=== PATIENT | female | born 1985 | race American Indian/Alaskan Native ===

== ENCOUNTER 2018-09-08 13:52 | Emergency (ER) | payer SELFPAY ==
[2018-09-08 14:25] VITALS: BP 222/106
--- NOTE | 2018-09-08 14:26 | Emergency Department Report ---
ED Recheck HPI - General Chief Complaint: Laceration/Recheck/Suture Stated Complaint: STITCHES REMOVED Time Seen by Provider: 09/08/18 14:24 Source: patient Mode of arrival: Ambulatory Limitations: No Limitations - History of Present Illness Initial Comments: 32 yo female here for suture removal Her BP is inc. She has ESRD and her BP is always high. She forgot to take her bp meds last PM but took this AM. No cp, no sob, no ortiz Here for only the suture removal. Complaint: wound re-check - Related Data Allergies Allergy/AdvReac Type Severity Reaction Status Date / Time No Known Allergies Allergy Unverified 09/08/18 14:04 ED Review of Systems ROS: Stated complaint: STITCHES REMOVED Other details as noted in HPI Comment: All other systems reviewed and negative ED Past Medical Hx - Past Medical History Hx Hypertension: Yes Hx Diabetes: Yes Hx Renal Disease: Yes (HD T Th Sat) - Surgical History Additional Surgical History: fistula L arm - Family History Family history: no significant - Social History Smoking Status: Current Every Day Smoker Substance Use Type: Marijuana ED Physical Exam - General Limitations: No Limitations General appearance: alert - Head Head exam: Present: normocephalic - Eye Eye exam: Present: normal appearance, PERRL - ENT ENT exam: Present: normal exam, mucous membranes moist - Neck Neck exam: Present: normal inspection - Cardiovascular Cardiovascular Exam: Present: regular rate - GI/Abdominal GI/Abdominal exam: Present: soft - Rectal Rectal exam: Present: deferred - Extremities Exam Extremities exam: Present: normal inspection - Back Exam Back exam: Present: normal inspection - Neurological Exam Neurological exam: Present: alert, oriented X3, CN II-XII intact, normal gait, reflexes normal - Psychiatric Psychiatric exam: Present: normal affect, normal mood - Skin Skin exam: Present: warm, dry, normal color ED Course Vital Signs 09/08/18 09/08/18 14:22 14:27 Temperature 98.5 F Pulse Rate 77 77 Respiratory 16 Rate Blood Pressure 222/106 Blood Pressure 222/106 [Right] O2 Sat by Pulse 100 Oximetry ED Recheck MDM - Core Measures Measure Exclusions: not indicated - Medical Decision Making medicated with clonidine for BP educated on her bp meds and compliance she had hd yesterday and gets it tomorrow. no cp no sob no headache neuro intact sutures removed without difficulty dc home with dc plan of care. Critical care attestation.: If time is entered above; I have spent that time in minutes in the direct care of this critically ill patient, excluding procedure time. ED Disposition Clinical Impression: Visit for suture removal, Hypertension, ESRD (end stage renal disease) Disposition: DC-01 TO HOME OR SELFCARE Is pt being admited?: No Does the pt Need Aspirin: No Condition: Stable Instructions: Suture Care (ED) Referrals: SUSI MOSLEY MD [Primary Care Provider] - 3-5 Days Time of Disposition: 14:37
[2018-09-08] MEDS ORDERED: CATAPRES PO ONE (14:27)
[2018-09-08] MEDS ORDERED: CATAPRES ONE (14:29)
== END 2018-09-08 14:50 | disposition home or self-care (01) ==
LOC: ED 13:52
DX: S61.411D Laceration without foreign body of right hand, subsequent encounter (principal); E11.22 Type 2 diabetes mellitus with diabetic chronic kidney disease; I12.0 Hypertensive chronic kidney disease with stage 5 chronic kidney disease or end stage renal disease; N18.6 End stage renal disease; Z99.2 Dependence on renal dialysis; X58.XXXD Exposure to other specified factors, subsequent encounter

== ENCOUNTER 2019-07-25 08:29 | Observation (INO) | payer OTHER ==
--- NOTE | 2019-07-25 13:02 | XRay Report ---
CHEST 1 VIEW INDICATION: hypertension. COMPARISON: None. FINDINGS: Support devices: None. Heart: Enlarged. Pulmonary vasculature: Large central pulmonary vessels. Lungs/Pleura: Lungs are normally expanded and clear. Additional findings: None. IMPRESSION: 1. Cardiomegaly and pulmonary venous hypertension. 2. No pulmonary edema. Signer Name: Zoran Thompson MD Signed: 07/25/2019 12:57 PM Workstation Name: [id number]
[2019-07-25 13:08] LABS: Basophils % (Auto) 0.7 % (0.0-1.8); Eosinophils # (Auto) 0.2 K/mm3 (0.0-0.4); Eosinophils % (Auto) 3.5 % (0.0-4.3); Hematocrit 25.2 % (30.3-42.9); Hemoglobin 8.3 gm/dl (10.1-14.3); Mean Corpuscular HGB Conc 33 % (30-34); Mean Corpuscular Volume 93 fl (79-97); Monocytes # (Auto) 0.4 K/mm3 (0.0-0.8); Monocytes % (Auto) 7.5 % (0.0-7.3); Platelet Count 125 K/mm3 (140-440); Red Blood Count 2.72 M/mm3 (3.65-5.03)
[2019-07-25 13:19] LABS: INR 1.55 (0.87-1.13); Partial Thromboplastin Time 39.4 Sec. (24.2-36.6)
[2019-07-25 13:46] LABS: Albumin 3.6 g/dL (3.9-5); Bilirubin,Direct 0.6 mg/dL (0-0.2)
[2019-07-25] MEDS ORDERED: ACETAMINOPHEN 325 MG TAB PO PRN (14:16)
[2019-07-25] MEDS ORDERED: ONDANSETRON 4 MG/2 ML INJ IV PRN (14:16)
--- NOTE | 2019-07-25 14:16 | Emergency Department Report ---
ED General Adult HPI - General Chief complaint: Medical Clearance Stated complaint: DIALYSIS Time Seen by Provider: 07/25/19 11:57 Source: patient Mode of arrival: Ambulatory Limitations: No Limitations - History of Present Illness Initial comments: This is a 33-year-old female who I am told has moved here from [place]. She made no provision for dialysis. However, she found Dr. Dozier who presented her to the emergency department for evaluation. Apparently she is claiming she just missed 1 dialysis session. However, it does appear that she has a history of previous noncompliance. She states that she was admitted perhaps a month ago or so in [place] for shortness of breath and missed dialysis. Patient is very poorly cooperative to history and exam. She essentially lays on her side and will not easily even turn towards the examining physician. She is providing very little information. She denies shortness of breath. She denies any acute pain. She states that she feels weak. She denies fever or chills. Apparently, she is having polyphagia as she is repeatedly asking for a tray. She does not have altered mental status per se though. Patient is not keenly aware that her abdomen and legs have been swelling. She does state that she has retained fluid before in those areas. -: days(s), unknown (Not specifically known but for days) Associated Symptoms: denies other symptoms - Related Data Home Medications Medication Instructions Recorded Confirmed Last Taken Aspirin [Aspirin BABY CHEW TAB] 81 mg PO QDAY 07/25/19 07/25/19 Unknown Insulin Glargine [Lantus VIAL] 3 units SUB-Q QAM 07/25/19 07/25/19 Unknown Insulin Glargine [Lantus VIAL] 6 units SUB-Q QHS 07/25/19 07/25/19 Unknown Lispro Insulin [HumaLOG] 0 unit SQ ACHS 07/25/19 07/25/19 Unknown NIFEdipine [Nifedipine ER] 30 mg PO BID 07/25/19 07/25/19 Unknown Pantoprazole [Protonix] 40 mg PO QDAY 07/25/19 07/25/19 Unknown Vitamin B Complex 1 each PO DAILY 07/25/19 07/25/19 Unknown carvediloL [Coreg] 25 mg PO BID 07/25/19 07/25/19 Unknown Allergies Allergy/AdvReac Type Severity Reaction Status Date / Time No Known Allergies Allergy Unverified 09/08/18 14:04 ED Review of Systems ROS: Stated complaint: DIALYSIS Other details as noted in HPI Comment: All other systems reviewed and negative (As obtainable, extremely poor historian) ED Past Medical Hx - Past Medical History Previous Medical History?: Yes Hx Hypertension: Yes Hx Diabetes: Yes Hx Renal Disease: Yes (HD T Th Sat) Additional medical history: Denies chronic liver disease - Surgical History Past Surgical History?: Yes Additional Surgical History: fistula L arm, paracentesis - Social History Smoking Status: Current Every Day Smoker Substance Use Type: Alcohol, Marijuana - Medications Home Medications: Home Medications Medication Instructions Recorded Confirmed Last Taken Type Aspirin [Aspirin BABY CHEW TAB] 81 mg PO QDAY 07/25/19 07/25/19 Unknown History Insulin Glargine [Lantus VIAL] 3 units SUB-Q QAM 07/25/19 07/25/19 Unknown Hist ory Insulin Glargine [Lantus VIAL] 6 units SUB-Q QHS 07/25/19 07/25/19 Unknown History Lispro Insulin [HumaLOG] 0 unit SQ ACHS 07/25/19 07/25/19 Unknown History NIFEdipine [Nifedipine ER] 30 mg PO BID 07/25/19 07/25/19 Unknown History Pantoprazole [Protonix] 40 mg PO QDAY 07/25/19 07/25/19 Unknown History Vitamin B Complex 1 each PO DAILY 07/25/19 07/25/19 Unknown History carvediloL [Coreg] 25 mg PO BID 07/25/19 07/25/19 Unknown History ED Physical Exam - General Limitations: Physical Limitation, Other (Poor cooperation) General appearance: lethargic (Mildly) - Head Head exam: Present: atraumatic, normocephalic - Eye Eye exam: Absent: scleral icterus - ENT ENT exam: Present: mucous membranes moist - Neck Neck exam: Absent: tenderness, meningismus - Cardiovascular Cardiovascular Exam: Present: regular rate, normal rhythm. Absent: systolic murmur, diastolic murmur, rubs, gallop - GI/Abdominal GI/Abdominal exam: Present: soft, distended, normal bowel sounds, hernia (Reducible umbilical hernia), other (Consistent with ascites but not tense). Absent: tenderness, guarding, rebound, rigid - Extremities Exam Extremities exam: Present: other (1-2+ leg edema). Absent: calf tenderness ED Course Vital Signs 07/25/19 08:41 Temperature 97.4 F L Pulse Rate 68 Respiratory 18 Rate Blood Pressure 121/66 O2 Sat by Pulse 96 Oximetry - Reevaluation(s) Reevaluation #1: Discussed with case work aide. I will give the patient 4 units of IV insulin now. This should ameliorate her hyperkalemia and bridge her to dialysis. Dr. Dozier did not want any further intervention prior to dialysis. He is placing dialysis orders for next avialable. Patient is admitted by Dr. Potter to the hospitalist service. 07/25/19 14:26 ED Medical Decision Making - Lab Data Result diagrams: 07/25/19 12:41 07/25/19 12:41 Laboratory Results - last 24 hr 07/25/19 07/25/19 07/25/19 12:41 12:41 12:41 WBC 5.0 RBC 2.72 L Hgb 8.3 L Hct 25.2 L MCV 93 MCH 31 MCHC 33 RDW 18.0 H Plt Count 125 L Lymph % (Auto) 21.0 Webb % (Auto) 7.5 H Eos % (Auto) 3.5 Baso % (Auto) 0.7 Lymph # 1.0 L Webb # 0.4 Eos # 0.2 Baso # 0.0 Seg Neutrophils % 67.3 Seg Neutrophils # 3.4 PT 18.8 H INR 1.55 H APTT 39.4 H Sodium 135 L Potassium 5.9 H Chloride 94.7 L Carbon Dioxide 18 L Anion Gap 28 BUN 76 H Creatinine 12.3 H Estimated GFR 4 BUN/Creatinine Ratio 6 Glucose 443 H Calcium 9.0 Phosphorus Total Bilirubin 0.90 Direct Bilirubin 0.6 H Indirect Bilirubin 0.3 AST 14 ALT 12 Alkaline Phosphatase 210 H Total Protein 7.3 Albumin 3.6 L Albumin/Globulin Ratio 1.0 07/25/19 12:41 WBC RBC Hgb Hct MCV MCH MCHC RDW Plt Count Lymph % (Auto) Webb % (Auto) Eos % (Auto) Baso % (Auto) Lymph # Webb # Eos # Baso # Seg Neutrophils % Seg Neutrophils # PT INR APTT Sodium Potassium Chloride Carbon Dioxide Anion Gap BUN Creatinine Estimated GFR BUN/Creatinine Ratio Glucose Calcium Phosphorus 7.20 H Total Bilirubin Direct Bilirubin Indirect Bilirubin AST ALT Alkaline Phosphatase Total Protein Albumin Albumin/Globulin Ratio - Radiology Data Radiology results: report reviewed (Chest x-ray no acute process) Critical Care Time: Yes Critical care time in (mins) excluding proc time.: 60 Critical care attestation.: If time is entered above; I have spent that time in minutes in the direct care of this critically ill patient, excluding procedure time. ED Disposition Clinical Impression: ESRD needing dialysis, Metabolic acidosis, Hyperkalemia, Hyperglycemia Disposition: OP ADMIT IP TO THIS HOSP Is pt being admited?: Yes Does the pt Need Aspirin: Yes Condition: Stable Referrals: PRIMARY CARE, [Primary Care Provider] - 3-5 Days Time of Disposition: 14:26
--- NOTE | 2019-07-25 14:19 | History and Physical Report ---
History of Present Illness Chief complaint: I need dialysis today History of present illness: 33 YO Female with ESRD on HD(M,W,F) had last dialysis on Tuesday, HTN DM, Nicotine Dependence, Obesity presents to ED for evaluation. Patient states that she recently moved to the [facility] from [place] and was unable to have dialysis arranged and is in need of dialysis. Patient transported to [facility] via private vehicle. Patient seen and evaluated in the emergency department. Lab and imaging studies reviewed. Patient was found to have end-stage renal disease in need of urgent dialysis, hyperkalemia, and metabolic acidosis which is secondary to noncompliance. Patient placed in observation status and admitted to medical floor. Nephrology service consulted in ED. Patient denies fever, chills, chest pain, palpitations, productive cough, skin rash, known ill contacts. No prior admission for review. No medication listed at time of admission for reconciliation. PUI?: No Past History Past Medical History: diabetes, ESRD, hypertension, other (See HPI) Past Surgical History: Other (Dialysis access) Social history: single, smoking. denies: alcohol abuse, prescription drug abuse Family history: diabetes, hypertension Medications and Allergies Allergies Allergy/AdvReac Type Severity Reaction Status Date / Time No Known Allergies Allergy Unverified 09/08/18 14:04 Home Medications Medication Instructions Recorded Confirmed Last Taken Type Aspirin [Aspirin BABY CHEW TAB] 81 mg PO QDAY 07/25/19 07/25/19 Unknown History Insulin Glargine [Lantus VIAL] 3 units SUB-Q QAM 07/25/19 07/25/19 Unknown History Insulin Glargine [Lantus VIAL] 6 units SUB-Q QHS 07/25/19 07/25/19 Unknown History Lispro Insulin [HumaLOG] 0 unit SQ ACHS 07/25/19 07/25/19 Unknown History NIFEdipine [Nifedipine ER] 30 mg PO BID 07/25/19 07/25/19 Unknown History Pantoprazole [Protonix] 40 mg PO QDAY 07/25/19 07/25/19 Unknown History Vitamin B Complex 1 each PO DAILY 07/25/19 07/25/19 Unknown History carvediloL [Coreg] 25 mg PO BID 07/25/19 07/25/19 Unknown History Active Meds: Active Medications Insulin Human Regular (Humulin R) 10 units IV ONCE ONE Stop: 07/25/19 15:01 Review of Systems Constitutional: no weight loss, no weight gain, no fever, no chills Ears, nose, mouth and throat: no ear pain, no ear discharge, no tinnitis, no decreased hearing, no nose pain Breasts: no change in shape, no swelling, no mass Cardiovascular: no chest pain, no orthopnea, no palpitations, no rapid/irregular heart beat, no edema Respiratory: no cough, no cough with sputum, no excessive sputum, no hemoptysis, no shortness of breath Gastrointestinal: no abdominal pain, no nausea, no vomiting, no diarrhea Genitourinary Female: no pelvic pain, no flank pain, no menorrhagia, no dysuria, no urinary frequency, no urgency Rectal: no pain, no incontinence, no bleeding Musculoskeletal: no neck stiffness, no neck pain, no shooting arm pain, no arm numbness/tingling, no low back pain Integumentary: no rash, no pruritis, no redness, no sores, no wounds Neurological: no transient paralysis, no paralysis, no weakness, no parathesias, no numbness, no tingling Psychiatric: no memory loss, no change in sleep habits, no sleep disturbances, no insomnia, no hypersomnia, no change in appetite Endocrine: no cold intolerance, no heat intolerance, no polyphagia, no excessive thirst, no polydipsia, no polyuria Hematologic/Lymphatic: no easy bruising, no easy bleeding, no lymphadenopathy, no lymphedema Allergic/Immunologic: no urticaria, no allergic rhinitis, no persistent infec tions, no anaphylaxis Exam - Constitutional Vitals: Temp Pulse Resp BP Pulse Ox 97.4 F L 68 18 121/66 96 07/25/19 08:41 07/25/19 08:41 07/25/19 08:41 07/25/19 08:41 07/25/19 08:41 General appearance: Present: no acute distress, well-nourished, obese - EENT Eyes: Present: PERRL ENT: hearing intact, clear oral mucosa - Neck Neck: Present: supple, normal ROM - Respiratory Respiratory effort: normal Respiratory: bilateral: CTA - Cardiovascular Heart Sounds: Present: S1 & S2. Absent: rub, click - Extremities Extremities: pulses symmetrical, No edema Peripheral Pulses: within normal limits - Abdominal General gastrointestinal: Present: soft, non-tender, non-distended, normal bowel sounds Female genitourinary: Present: normal - Integumentary Integumentary: Present: clear, warm, dry - Musculoskeletal Musculoskeletal: gait normal, strength equal bilaterally - Psychiatric Psychiatric: appropriate mood/affect, intact judgment & insight - Neurologic Neurologic: CNII-XII intact, moves all extremities Results - Labs CBC & Chem 7: 07/25/19 12:41 07/25/19 12:41 Labs: Abnormal lab results 07/25/19 07/25/19 07/25/19 Range/Units 12:41 12:41 12:41 RBC 2.72 L (3.65-5.03) M/mm3 Hgb 8.3 L (10.1-14.3) gm/dl Hct 25.2 L (30.3-42.9) % RDW 18.0 H (13.2-15.2) % Plt Count 125 L (140-440) K/mm3 [place] % (Auto) 7.5 H (0.0-7.3) % Lymph # 1.0 L (1.2-5.4) K/mm3 PT 18.8 H (12.2-14.9) Sec. INR 1.55 H (0.87-1.13) APTT 39.4 H (24.2-36.6) Sec. Sodium 135 L (137-145) mmol/L Potassium 5.9 H (3.6-5.0) mmol/L Chloride 94.7 L (98-107) mmol/L Carbon Dioxide 18 L (22-30) mmol/L BUN 76 H (7-17) mg/dL Creatinine 12.3 H (0.7-1.2) mg/dL Glucose 443 H (65-100) mg/dL Phosphorus (2.5-4.5) mg/dL Direct Bilirubin 0.6 H (0-0.2) mg/dL Alkaline Phosphatase 210 H (35-129) units/L Albumin 3.6 L (3.9-5) g/dL 07/25/19 Range/Units 12:41 RBC (3.65-5.03) M/mm3 Hgb (10.1-14.3) gm/dl Hct (30.3-42.9) % RDW (13.2-15.2) % Plt Count (140-440) K/mm3 [place] % (Auto) (0.0-7.3) % Lymph # (1.2-5.4) K/mm3 PT (12.2-14.9) Sec. INR (0.87-1.13) APTT (24.2-36.6) Sec. Sodium (137-145) mmol/L Potassium (3.6-5.0) mmol/L Chloride (98-107) mmol/L Carbon Dioxide (22-30) mmol/L BUN (7-17) mg/dL Creatinine (0.7-1.2) mg/dL Glucose (65-100) mg/dL Phosphorus 7.20 H (2.5-4.5) mg/dL Direct Bilirubin (0-0.2) mg/dL Alkaline Phosphatase (35-129) units/L Albumin (3.9-5) g/dL Assessment and Plan - Patient Problems (1) ESRD needing dialysis Current Visit: Yes Status: Acute Plan to address problem: Nephrology consulted in ED, strict I's/O, daily weight, monitor urine output every shift, dialysis as per renal team. Avoid nephrotoxic agents. (2) Metabolic acidosis Current Visit: Yes Status: Acute Plan to address problem: Dialysis as per renal team, supportive care, BMP, repeat BMP in a.m. (3) Uncontrolled diabetes mellitus Current Visit: Yes Status: Acute Qualifiers: Coma presence: without coma Plan to address problem: High-dose protocol sliding scale insulin therapy, Accu-Chek every 6 hours, consistent carbohydrate diet, hypoglycemia protocol. (4) Noncompliance of patient with renal dialysis Current Visit: Yes Status: Acute Plan to address problem: Patient counseled regarding noncompliance with dialysis. Patient informed that noncompliance with dialysis may result in worsening symptoms, multiple organ failure, and even . Patient knowledges understanding risk. Patient states that she will attempt to be more compliant in the future. (5) Nicotine dependence Current Visit: Yes Status: Acute Qualifiers: Nicotine product type: cigarettes Substance use status: in withdrawal Qualified Code(s): F17.213 - Nicotine dependence, cigarettes, with withdrawal Plan to address problem: Supportive care, smoking cessation counseling, +15 minutes. (6) Hyperkalemia Current Visit: Yes Status: Acute Plan to address problem: Urgent dialysis, serial EKG, no EKG changes, supportive care. (7) DVT prophylaxis Current Visit: Yes Status: Acute Plan to address problem: SCD to bilateral lower extremities while in bed, patient is ambulatory.
[2019-07-25] MEDS ORDERED: DEXTROSE 50% IN WATER (25GM) 50 ML SYRINGE IV PRN (14:20)
[2019-07-25] MEDS ORDERED: EPOETIN ALFA 20,000 UNIT/1 ML INJ SUB-Q PRN (14:51)
[2019-07-25] MEDS ORDERED: HEPARIN 10,000 UNITS/10 ML VIAL IV PRN (14:51)
[2019-07-25] MEDS ORDERED: SODIUM CHLORIDE 0.9% 100 ML IV PRN (14:51)
--- NOTE | 2019-07-25 14:54 | Consultation ---
History of Present Illness - Reason for Consult Consult date: 07/25/19 end stage renal disease, hyperkalemia - History of Present Illness The patient is a 33 YO female with history significant for Obesity, DM, HTN, ESRD on HD(MWF), Anemia, Tabacco smoking and medical non-compliance who presente d to [facility] ED 07/24 in need of hemodialysis. Patient states that she moved to the [facility] from [place] over the weekend but didn't arrange the transfer. She was last dialyzed on 07/20/2019. Patient denies fever, chills, chest pain, cough, sob, leg swelling, weakness, skin rash or known ill contacts. Patient was not cooperative for history and exam. Labs work revealed hyperkalemia, meta bolic acidosis and anemia. Nephrology was consulted for further evaluation. Past History Past Medical History: anemia, diabetes, dialysis, ESRD, hypertension Medications and Allergies Allergies Allergy/AdvReac Type Severity Reaction Status Date / Time No Known Allergies Allergy Unverified 09/08/18 14:04 Home Medications Medication Instructions Recorded Confirmed Last Taken Type Aspirin [Aspirin BABY CHEW TAB] 81 mg PO QDAY 07/25/19 07/25/19 Unknown History Insulin Glargine [Lantus VIAL] 3 units SUB-Q QAM 07/25/19 07/25/19 Unknown History Insulin Glargine [Lantus VIAL] 6 units SUB-Q QHS 07/25/19 07/25/19 Unknown History Lispro Insulin [HumaLOG] 0 unit SQ ACHS 07/25/19 07/25/19 Unknown History NIFEdipine [Nifedipine ER] 30 mg PO BID 07/25/19 07/25/19 Unknown History Pantoprazole [Protonix] 40 mg PO QDAY 07/25/19 07/25/19 Unknown History Vitamin B Complex 1 each PO DAILY 07/25/19 07/25/19 Unknown History carvediloL [Coreg] 25 mg PO BID 07/25/19 07/25/19 Unknown History Active Meds: Active Medications Acetaminophen (Tylenol) 650 mg PO Q4H PRN PRN Reason: Pain MILD(1-3)/Fever >100.5/MALIK Dextrose (D50w (25gm) Syringe) 50 ml IV Q30MIN PRN; Protocol PRN Reason: Hypoglycemia Heparin Sodium (Porcine) (Heparin 10,000 Units/10 Ml) 2,000 unit IV AUDREY PRN PRN Reason: hemodialysis Sodium Chloride (Nacl 0.9%) 100 mls @ 999 mls/hr IV AUDREY PRN PRN Reason: Hypotension Insulin Human Lispro (Humalog) 0 unit SUB-Q Q6HR RHEA; Protocol Insulin Human Regular (Humulin R) 10 units IV ONCE ONE Stop: 07/25/19 15:01 Ondansetron HCl (Zofran) 4 mg IV Q8H PRN PRN Reason: Nausea And Vomiting Sodium Chloride (Sodium Chloride Flush Syringe 10 Ml) 10 ml IV BID RHEA Sodium Chloride (Sodium Chloride Flush Syringe 10 Ml) 10 ml IV PRN PRN PRN Reason: LINE FLUSH Review of Systems Constitutional: no weight loss, no weight gain, no fever Breasts: deferred Cardiovascular: high blood pressure, no chest pain, no orthopnea, no edema, no syncope, no lightheadedness, no shortness of breath, no leg edema Respiratory: no cough, no hemoptysis Gastrointestinal: no abdominal pain, no nausea, no vomiting, no diarrhea Genitourinary Female: no dysuria Rectal: no bleeding Musculoskeletal: no muscle weakness, no muscle cramps Integumentary: no rash Neurological: no convulsions, no aphasia, no change in speech, no change in mentation, no confusion Exam - Vital Signs Vital signs: Vital Signs Temp Pulse Resp BP Pulse Ox 97.4 F L 68 18 121/66 96 07/25/19 08:41 07/25/19 08:41 07/25/19 08:41 07/25/19 08:41 07/25/19 08:41 - General Appearance General appearance: well-developed, well-nourished, appears stated age, obese, other (no distress) EENT: ATNC, PERRL, mucous membranes moist, hearing intact, vision intact Neck: Present: neck supple, trachea midline Respiratory: Clear to Ascultation Heart: regular, S1S2, no murmurs Gastrointestinal: Present: normoactive bowel sounds. Absent: tenderness, distended Integumentary: no rash, warm and dry Neurologic: no focal deficit, no asterixis, alert and oriented x3 Musculoskeletal: Present: other (no edema, L arm AVF) Results - Lab Results 07/25/19 12:41 07/25/19 12:41 Most recent lab results Calcium 9.0 mg/dL (8.4-10.2) 07/25/19 12:41 Phosphorus 7.20 mg/dL (2.5-4.5) H 07/25/19 12:41 Assessment and Plan 1. ESRD: Patient is on maintenance hemodialysis three times a week, MWF schedule. Last outpatient HD 07/20/19. Hemodialysis: 07/24. 2. FEN: Hyperkalemia, HD today, monitor. Monitor lytes. 3. Anemia, POA: Likely secondary to ESRD. Epogen with HD. 4. Hypertension: Continue home meds. Monitor BP. 5. DM. 6. Medical non-compliance. Patient need outpatient HD chair.
[2019-07-25] MEDS ORDERED: INSULIN REGULAR, HUMAN 100 UNITS/1 ML IV ONE (15:00)
[2019-07-25] MEDS: INSULIN REGULAR, HUMAN 100 UNITS/1 ML IV ONE ×2 (15:19→15:28)
[2019-07-25 16:09] LABS: Hepatitis B Surface Antigen Non-Reactive (Negative); Hepatitis C Virus Antibody Non-Reactive (NonReactive)
[2019-07-25] MEDS ORDERED: hydrALAZINE 20 MG/1 ML INJ IV PRN (21:29)
[2019-07-25] MEDS: carvediloL 25 MG TAB PO SCH (22:41)
[2019-07-25] MEDS: NIFEdipine XL 30 MG TAB PO SCH (22:41)
[2019-07-25] MEDS ORDERED: amLODIPine 10 MG TAB PO SCH (23:00)
[2019-07-26] MEDS: INSULIN LISPRO 100 UNIT/ML SUB-Q SCH ×2 (00:53→08:29)
[2019-07-26] MEDS: hydrALAZINE 10 MG TAB PO PRN ×3 (01:19→07:59)
[2019-07-26] MEDS: NIFEdipine XL 30 MG TAB PO SCH ×2 (07:59→09:23)
[2019-07-26] MEDS: carvediloL 25 MG TAB PO SCH ×2 (08:00→09:23)
--- NOTE | 2019-07-26 08:06 | Progress Note ---
Assessment and Plan Assessment and plan: 33 YO Female with ESRD on HD(M,W,F) had last dialysis on Tuesday, HTN DM, Nicotine Dependence, Obesity presents to ED for evaluation. Patient states that she recently moved to the [facility] from [place] and was unable to have dialysis arranged and is in need of dialysis. Patient transported to [facility] via private vehicle. Patient seen and evaluated in the emergency department. Lab and imaging studies reviewed. Patient was found to have end-stage renal disease in need of urgent dialysis, hyperkalemia, and metabolic acidosis which is secondary to noncompliance. Patient placed in observation status and admitted to medical floor. Nephrology service consulted in ED. Patient denies fever, ch ills, chest pain, palpitations, productive cough, skin rash, known ill contacts. No prior admission for review. No medication listed at time of admission for reconciliation. * Patient advised about extensively elevated blood pressure she vehemently refuses any additional medication she states that clonidine drops her blood pressure despite the fact that she was taking clonidine when she had nifed ipine was 60 not a study. She also wants her insulin adjusted to a particular regimen that she takes. She refuses IV medication. She understands that his systolic blood pressure of 215 is significantly elevated. * Will obtain case management consultation and anticipate discharge once outpatient dialysis is arranged. (1) ESRD needing dialysis Current Visit: Yes Status: Acute Plan to address problem: Nephrology consulted in ED, strict I's/O, daily weight, monitor urine output every shift, dialysis as per renal team. Avoid nephrotoxic agents. (2) Metabolic acidosis Current Visit: Yes Status: Acute Plan to address problem: Dialysis as per renal team, supportive care, BMP, repeat BMP in a.m. (3) Uncontrolled diabetes mellitus Current Visit: Yes Status: Acute Qualifiers: Coma presence: without coma Plan to address problem: High-dose protocol sliding scale insulin therapy, Accu-Chek every 6 hours, consistent carbohydrate diet, hypoglycemia protocol. (4) Noncompliance of patient with renal dialysis Current Visit: Yes Status: Acute Plan to address problem: Patient counseled regarding noncompliance with dialysis. Patient informed that noncompliance with dialysis may result in worsening symptoms, multiple organ failure, and even . Patient knowledges understanding risk. Patient states that she will attempt to be more compliant in the future. (5) Nicotine dependence Current Visit: Yes Status: Acute Qualifiers: Nicotine product type: cigarettes Substance use status: in withdrawal Qualified Code(s): F17.213 - Nicotine dependence, cigarettes, with withdrawal Plan to address problem: Supportive care, smoking cessation counseling, +15 minutes. (6) Hyperkalemia Current Visit: Yes Status: Acute Plan to address problem: Urgent dialysis, serial EKG, no EKG changes, supportive care. (7) DVT prophylaxis Current Visit: Yes Status: Acute Plan to address problem: SCD to bilateral lower extremities while in bed, patient is ambulatory. History PUI?: No Hospitalist Physical - Constitutional Vitals: Temp Pulse Resp BP Pulse Ox 98.7 F 82 20 215/107 99 07/26/19 07:21 07/26/19 07:21 07/26/19 07:21 07/26/19 07:21 07/26/19 07:21 General appearance: Present: no acute distress, well-nourished, obese Results - Labs CBC & Chem 7: 07/25/19 12:41 07/25/19 12:41 Labs: Laboratory Last Values WBC 5.0 K/mm3 (4.5-11.0) 07/25/19 12:41 RBC 2.72 M/mm3 (3.65-5.03) L 07/25/19 12:41 Hgb 8.3 gm/dl (10.1-14.3) L 07/25/19 12:41 Hct 25.2 % (30.3-42.9) L 07/25/19 12:41 MCV 93 fl (79-97) 07/25/19 12:41 MCH 31 pg (28-32) 07/25/19 12:41 MCHC 33 % (30-34) 07/25/19 12:41 RDW 18.0 % (13.2-15.2) H 07/25/19 12:41 Plt Count 125 K/mm3 (140-440) L 07/25/19 12:41 Lymph % (Auto) 21.0 % (13.4-35.0) 07/25/19 12:41 Sumner % (Auto) 7.5 % (0.0-7.3) H 07/25/19 12:41 Eos % (Auto) 3.5 % (0.0-4.3) 07/25/19 12:41 Baso % (Auto) 0.7 % (0.0-1.8) 07/25/19 12:41 Lymph # 1.0 K/mm3 (1.2-5.4) L 07/25/19 12:41 Sumner # 0.4 K/mm3 (0.0-0.8) 07/25/19 12:41 Eos # 0.2 K/mm3 (0.0-0.4) 07/25/19 12:41 Baso # 0.0 K/mm3 (0.0-0.1) 07/25/19 12:41 Seg Neutrophils % 67.3 % (40.0-70.0) 07/25/19 12:41 Seg Neutrophils # 3.4 K/mm3 (1.8-7.7) 07/25/19 12:41 PT 18.8 Sec. (12.2-14.9) H 07/25/19 12:41 INR 1.55 (0.87-1.13) H 07/25/19 12:41 APTT 39.4 Sec. (24.2-36.6) H 07/25/19 12:41 Sodium 135 mmol/L (137-145) L 07/25/19 12:41 Potassium 5.9 mmol/L (3.6-5.0) H 07/25/19 12:41 Chloride 94.7 mmol/L (98-107) L 07/25/19 12:41 Carbon Dioxide 18 mmol/L (22-30) L 07/25/19 12:41 Anion Gap 28 mmol/L 07/25/19 12:41 BUN 76 mg/dL (7-17) H 07/25/19 12:41 Creatinine 12.3 mg/dL (0.7-1.2) H 07/25/19 12:41 Estimated GFR 4 ml/min 07/25/19 12:41 BUN/Creatinine Ratio 6 % 07/25/19 12:41 Glucose 443 mg/dL (65-100) H 07/25/19 12:41 POC Glucose 114 (70-105) H 07/26/19 05:48 Calcium 9.0 mg/dL (8.4-10.2) 07/25/19 12:41 Phosphorus 7.20 mg/dL (2.5-4.5) H 07/25/19 12:41 Total Bilirubin 0.90 mg/dL (0.1-1.2) 07/25/19 12:41 Direct Bilirubin 0.6 mg/dL (0-0.2) H 07/25/19 12:41 Indirect Bilirubin 0.3 mg/dL 07/25/19 12:41 AST 14 units/L (5-40) 07/25/19 12:41 ALT 12 units/L (7-56) 07/25/19 12:41 Alkaline Phosphatase 210 units/L (35-129) H 07/25/19 12:41 NT-Pro-B Natriuret Pep 192168 pg/mL (0-450) H 07/25/19 12:41 Total Protein 7.3 g/dL (6.3-8.2) 07/25/19 12:41 Albumin 3.6 g/dL (3.9-5) L 07/25/19 12:41 Albumin/Globulin Ratio 1.0 % 07/25/19 12:41 Hepatitis A IgM Ab Non-reactive (NonReactive) 07/25/19 15: Hep Bs Antigen Non-reactive (Negative) 07/25/19 15: Hep B Core IgM Ab Non-reactive (NonReactive) 07/25/19 15:21 Hepatitis C Antibody Non-reactive (NonReactive) 07/25/19 15:21 Active Medications - Current Medications Current Medications: Generic Name Dose Route Start Last Admin Trade Name Freq PRN Reason Stop Dose Admin Acetaminophen 650 mg 07/25/19 14:16 Tylenol PO Q4H PRN Pain MILD(1-3)/Fever >100.5/MALIK Carvedilol 25 mg 07/25/19 23:00 07/26/19 08:00 Coreg PO 25 mg BID RHEA Administration Dextrose 50 ml 07/25/19 14:20 D50w (25gm) Syringe IV Q30MIN PRN Hypoglycemia Protocol Epoetin Evans 20,000 unit 07/25/19 14:51 Procrit SUB-Q AUDREY PRN hemodialysis Famotidine 40 mg 07/26/19 10:00 Pepcid PO QDAY RHEA Heparin Sodium (Porcine) 2,000 unit 07/25/19 14:51 Heparin 10,000 Units/10 Ml IV AUDREY PRN hemodialysis Hydralazine HCl 10 mg 07/25/19 21:29 Apresoline IV Q3HR PRN Hypertension Hydralazine HCl 10 mg 07/26/19 01:13 07/26/19 07:59 Apresoline PO 10 mg Q4H PRN Administration Hypertension Sodium Chloride 100 mls @ 999 mls/hr 07/25/19 14:51 Nacl 0.9% IV AUDREY PRN Hypotension Insulin Human Lispro 0 unit 07/25/19 18:00 07/26/19 00:53 Humalog SUB-Q 6 unit Q6HR RHEA Administration Protocol Nifedipine 30 mg 07/25/19 23:00 07/26/19 07:59 Procardia Xl PO 30 mg Q12HR RHEA Administration Ondansetron HCl 4 mg 07/25/19 14:16 Zofran IV Q8H PRN Nausea And Vomiting Sodium Chloride 10 ml 07/25/19 22:00 07/25/19 21:48 Sodium Chloride Flush Syringe 10 Ml IV 10 ml BID RHEA Administration Sodium Chloride 10 ml 07/25/19 14:16 Sodium Chloride Flush Syringe 10 Ml IV PRN PRN LINE FLUSH Thiamine HCl 100 mg 07/26/19 10:00 Vitamin B-1 PO QDAY RHEA
--- NOTE | 2019-07-26 09:12 | Progress Note ---
Assessment and Plan 1. ESRD: Patient is on maintenance hemodialysis three times a week, MWF schedule. Last outpatient HD 07/20/19. Hemodialysis: 07/24. 2. FEN: Hyperkalemia, s/p HD yesterday, monitor. Monitor lytes. 3. Anemia, POA: Likely secondary to ESRD. Epogen with HD. 4. Hypertension: Continue home meds. Monitor BP. 5. Uncontrolled DM. 6. Medical non-compliance. Patient need outpatient HD chair, CM involved. Patient is very non-compliant, not cooperating, - Subjective: Patient was seen and examined at the bedside. Nursing aid at the bedside. - General Appearance General appearance: well-developed, well-nourished, appears stated age, obese, other (no distress) EENT: ATNC, PERRL, mucous membranes moist, hearing intact, vision intact Neck: Present: neck supple, trachea midline Respiratory: Clear to Ascultation Heart: regular, S1S2, no murmurs Gastrointestinal: Present: normoactive bowel sounds. Absent: tenderness, distended Integumentary: no rash, warm and dry Neurologic: no focal deficit, no asterixis, alert and oriented x3 Musculoskeletal: Present: other (no edema, L arm AVF) Subjective Date of service: 07/26/19 PUI?: No Objective - Vital Signs Vital signs: Vital Signs - 12hr 07/26/19 07/26/19 07/26/19 00:06 00:22 00:49 Temperature 98.0 F 98 F Pulse Rate 79 68 76 Respiratory 18 18 Rate Blood Pressure 227/116 217/98 Blood Pressure 277/211 [Left] O2 Sat by Pulse 97 95 Oximetry 07/26/19 07/26/19 07/26/19 01:19 03:31 04:39 Temperature 98.0 F Pulse Rate 79 82 Respiratory 18 Rate Blood Pressure 217/98 251/119 251/119 Blood Pressure [Left] O2 Sat by Pulse 92 Oximetry 07/26/19 07:21 Temperature 98.7 F Pulse Rate 82 Respiratory 20 Rate Blood Pressure 215/107 Blood Pressure [Left] O2 Sat by Pulse 99 Oximetry - Lab 07/25/19 12:41 07/25/19 12:41 Most recent lab results Calcium 9.0 mg/dL (8.4-10.2) 07/25/19 12:41 Phosphorus 7.20 mg/dL (2.5-4.5) H 07/25/19 12:41 Medications & Allergies - Medications Allergies/Adverse Reactions: Allergies No Known Allergies Allergy (Verified 07/27/19 11:41) Home Medications: Home Medications Medication Instructions Recorded Confirmed Last Taken Type Aspirin [Aspirin BABY CHEW TAB] 81 mg PO QDAY 07/25/19 07/25/19 Unknown History Insulin Glargine [Lantus VIAL] 3 units SUB-Q QAM 07/25/19 07/25/19 Unknown History Insulin Glargine [Lantus VIAL] 6 units SUB-Q QHS 07/25/19 07/25/19 Unknown History Lispro Insulin [HumaLOG] 0 unit SQ ACHS 07/25/19 07/25/19 Unknown History NIFEdipine [Nifedipine ER] 30 mg PO BID 07/25/19 07/25/19 Unknown History Pantoprazole [Protonix TAB] 40 mg PO QDAY 07/25/19 07/25/19 Unknown History Vitamin B Complex 1 each PO DAILY 07/25/19 07/25/19 Unknown History carvediloL [Coreg] 25 mg PO BID 07/25/19 07/25/19 Unknown History Calcium Acetate [Phoslo] 2,001 mg PO TID 07/26/19 07/26/19 2 Days Ago History ~07/24/19 Lispro Insulin [HumaLOG] 2 unit SQ QAC 07/26/19 07/26/19 Unknown History Lispro Insulin [HumaLOG] See Protocol SQ QACHS 07/26/19 07/26/19 2 Days Ago History ~07/24/19 Active Medications: Generic Name Dose Route Start Last Admin Trade Name Freq PRN Reason Stop Dose Admin Acetaminophen 650 mg 07/25/19 14:16 Tylenol PO Q4H PRN Pain MILD(1-3)/Fever >100.5/MALIK Carvedilol 25 mg 07/25/19 23:00 07/26/19 08:00 Coreg PO 25 mg BID RHEA Administration Dextrose 50 ml 07/25/19 14:20 D50w (25gm) Syringe IV Q30MIN PRN Hypoglycemia Protocol Epoetin Evans 20,000 unit 07/25/19 14:51 Procrit SUB-Q AUDREY PRN hemodialysis Famotidine 40 mg 07/26/19 10:00 Pepcid PO QDAY RHEA Heparin Sodium (Porcine) 2,000 unit 07/25/19 14:51 Heparin 10,000 Units/10 Ml IV AUDREY PRN hemodialysis Hydralazine HCl 10 mg 07/25/19 21:29 Apresoline IV Q3HR PRN Hypertension Hydralazine HCl 10 mg 07/26/19 01:13 07/26/19 07:59 Apresoline PO 10 mg Q4H PRN Administration Hypertension Sodium Chloride 100 mls @ 999 mls/hr 07/25/19 14:51 Nacl 0.9% IV AUDREY PRN Hypotension Insulin Human Lispro 0 unit 07/25/19 18:00 07/26/19 08:29 Humalog SUB-Q Not Given Q6HR [facility] Protocol Nifedipine 30 mg 07/25/19 23:00 07/26/19 07:59 Procardia Xl PO 30 mg Q12HR RHEA Administration Ondansetron HCl 4 mg 07/25/19 14:16 Zofran IV Q8H PRN Nausea And Vomiting Sodium Chloride 10 ml 07/25/19 22:00 07/25/19 21:48 Sodium Chloride Flush Syringe 10 Ml IV 10 ml BID RHEA Administration Sodium Chloride 10 ml 07/25/19 14:16 Sodium Chloride Flush Syringe 10 Ml IV PRN PRN LINE FLUSH Thiamine HCl 100 mg 07/26/19 10:00 Vitamin B-1 PO QDAY [facility]
[2019-07-26] MEDS: FAMOTIDINE 20 MG TAB PO SCH ×2 (09:34→09:42)
[2019-07-26] MEDS ORDERED: carvediloL 25 MG TAB PO SCH (10:00)
[2019-07-26] MEDS ORDERED: THIAMINE 100 MG TAB PO SCH (10:00)
[2019-07-26] MEDS ORDERED: INSULIN LISPRO 100 UNIT/ML SUB-Q SCH ×2 (11:30→12:00)
--- NOTE | 2019-07-26 11:46 | Discharge Summary ---
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 Patient states that she recently moved to the [facility] from [place] and was unable to have dialysis arranged and is in need of dialysis. Patient transported to [facility] via private vehicle. Patient seen and evaluated in the emergency department. Lab and imaging studies reviewed. Patient was found to have end-stage renal disease in need of urgent dialysis, hyperkalemia, and metabolic acidosis which is secondary to noncompliance. Patient placed in observation status and admitted to medical floor. Nephrology service consulted in ED. Patient denies fever, chills, chest pain, palpitations, productive cough, skin rash, known ill contacts. No prior admission for review. No medication listed at time of admission for reconciliation. * Patient advised about extensively elevated blood pressure she vehemently refuses any additional medication she states that clonidine drops her blood pressure despite the fact that she was taking clonidine when she had nifedipine was 60 not a study. She also wants her insulin adjusted to a particular regimen that she takes. She refuses IV medication. She understands that his systolic blood pressure of 215 is significantly elevated. * Will obtain case management consultation and anticipate discharge once outpatient dialysis is arranged. * Patient categorically states she is not staying to wait for Dialysis set up AND WILL LEAVE AMA. Extensive counselling provided against this. (1) ESRD needing dialysis Current Visit: Yes Status: Acute Plan to address problem: Nephrology consulted in ED, strict I's/O, daily weight, monitor urine output every shift, dialysis as per renal team. Avoid nephrotoxic agents. (2) Metabolic acidosis Current Visit: Yes Status: Acute Plan to address problem: Dialysis as per renal team, supportive care, BMP, repeat BMP in a.m. (3) Uncontrolled diabetes mellitus Current Visit: Yes Status: Acute Qualifiers: Coma presence: without coma Plan to address problem: High-dose protocol sliding scale insulin therapy, Accu-Chek every 6 hours, consistent carbohydrate diet, hypoglycemia protocol. (4) Noncompliance of patient with renal dialysis Current Visit: Yes Status: Acute Plan to address problem: Patient counseled regarding noncompliance with dialysis. Patient informed that noncompliance with dialysis may result in worsening symptoms, multiple organ failure, and even . Patient knowledges understanding risk. Patient states that she will attempt to be more compliant in the future. (5) Nicotine dependence Current Visit: Yes Status: Acute Qualifiers: Nicotine product type: cigarettes Substance use status: in withdrawal Qualified Code(s): F17.213 - Nicotine dependence, cigarettes, with withdrawal Plan to address problem: Supportive care, smoking cessation counseling, +15 minutes. (6) Hyperkalemia Current Visit: Yes Status: Acute Plan to address problem: Urgent dialysis, serial EKG, no EKG changes, supportive care. (7) DVT prophylaxis Current Visit: Yes Status: Acute Plan to address problem: SCD to bilateral lower extremities while in bed, patient is ambulatory. Exam - Constitutional Vitals: Temp Pulse Resp BP Pulse Ox 98.7 F 83 20 128/67 96 07/26/19 07:21 07/26/19 09:37 07/26/19 07:21 07/26/19 09:37 07/26/19 09:37 Plan Activity: advance as tolerated, fall precautions Diet: low fat, low salt, diabetic, renal Special Instructions: record daily BP diary, record blood sugar diary Follow up with: GLEN DUARTE MD [Primary Care Provider] - 3-5 Days UBALDO COLLAZO MD [Staff Physician] - 7 Days
[2019-07-26] MEDS: CALCIUM ACETATE 667 MG CAP PO SCH ×2 (12:19→13:11)
[2019-07-26 12:52] VITALS: BP 137/77
[2019-07-26] MEDS ORDERED: INSULIN GLARGINE 100 UNITS/ML SUB-Q SCH (22:00)
[2019-07-27] MEDS ORDERED: INSULIN GLARGINE 100 UNITS/ML SUB-Q SCH (10:00)
== END 2019-07-26 14:27 | disposition left against medical advice (07) ==
LOC: ED 08:29 → 4A 14:16
PROVIDERS: ADMIT Internal Medicine; ATTEND Internal Medicine
DX: I12.0 Hypertensive chronic kidney disease with stage 5 chronic kidney disease or end stage renal disease (principal); N18.6 End stage renal disease; E11.22 Type 2 diabetes mellitus with diabetic chronic kidney disease; E87.2 Acidosis; E11.65 Type 2 diabetes mellitus with hyperglycemia; E87.5 Hyperkalemia; F17.210 Nicotine dependence, cigarettes, uncomplicated; Z91.15 Patient's noncompliance with renal dialysis; Z79.82 Long term (current) use of aspirin; Z79.84 Long term (current) use of oral hypoglycemic drugs; Z79.899 Other long term (current) drug therapy
CPT/HCPCS: 36415; 71045; 80048; 80074; 80076; 82962; 83880; 84100; 85025; 85610; 85730; 93005; 93010; 96372; 96374; 99291; G0378; J0360; J1815

== ENCOUNTER 2019-07-27 11:32 | Observation (INO) | payer SELFPAY ==
--- NOTE | 2019-07-27 12:40 | Emergency Department Report ---
HPI - General Chief Complaint: Medical Clearance Time Seen by Provider: 07/27/19 12:29 - HPI HPI: Room 5 The patient is a 33-year-old female present with a chief complaint of needing hemodialysis. 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 Patient last received hemodialysis 2 days ago at this hospital states she was instructed to come back today for hemodialysis. Patient states she developed slight shortness of breath yesterday but denies fever or cough. The patient states she feels like she has "fluid." ED Past Medical Hx - Past Medical History Hx Hypertension: Yes Hx Diabetes: Yes Hx Renal Disease: Yes (M W F) Additional medical history: Denies chronic liver disease - Surgical History Additional Surgical History: fistula L arm, paracentesis - Family History Family history: no significant - Social History Smoking Status: Current Some Day Smoker (Black and milds) Substance Use Type: None - Medications Home Medications: Home Medications Medication Instructions Recorded Confirmed Last Taken Type Aspirin [Aspirin BABY CHEW TAB] 81 mg PO QDAY 07/25/19 07/25/19 Unknown History Insulin Glargine [Lantus VIAL] 3 units SUB-Q QAM 07/25/19 07/25/19 Unknown History Insulin Glargine [Lantus VIAL] 6 units SUB-Q QHS 07/25/19 07/25/19 Unknown History Lispro Insulin [HumaLOG] 0 unit SQ ACHS 07/25/19 07/25/19 Unknown History NIFEdipine [Nifedipine ER] 30 mg PO BID 07/25/19 07/25/19 Unknown History Pantoprazole [Protonix TAB] 40 mg PO QDAY 07/25/19 07/25/19 Unknown History Vitamin B Complex 1 each PO DAILY 07/25/19 07/25/19 Unknown History carvediloL [Coreg] 25 mg PO BID 07/25/19 07/25/19 Unknown History Calcium Acetate [Phoslo] 2,001 mg PO TID 07/26/19 07/26/19 2 Days Ago History ~07/24/19 Lispro Insulin [HumaLOG] 2 unit SQ QAC 07/26/19 07/26/19 Unknown History Lispro Insulin [HumaLOG] See Protocol SQ QACHS 07/26/19 07/26/19 2 Days Ago History ~07/24/19 ED Review of Systems ROS: Stated complaint: DIALYSIS Other details as noted in HPI Constitutional: denies: fever Eyes: denies: eye pain ENT: denies: throat pain Respiratory: shortness of breath Cardiovascular: denies: chest pain Endocrine: no symptoms reported Physical Exam - Physical Exam Vital Signs: Vital Signs 07/27/19 11:41 Temperature 97.8 F Pulse Rate 67 Respiratory 20 Rate Blood Pressure 119/63 O2 Sat by Pulse 96 Oximetry Physical Exam: GENERAL: The patient is well-developed well-nourished []. [] HEENT: Normocephalic. Atraumatic. Extraocular motions are intact. Patient has moist mucous membranes. NECK: Supple. Trachea midline CHEST/LUNGS: Clear to auscultation. There is no respiratory distress noted. HEART/CARDIOVASCULAR: Regular. There is no tachycardia. There is no gallop rub or murmur. ABDOMEN: Abdomen is soft, nontender. Patient has normal bowel sounds. There is no abdominal distention. SKIN: There is no rash. There is 2+ pitting edema to the lower extremity. There is no diaphoresis. NEURO: The patient is awake, alert, and oriented. The patient is cooperative. The patient has no focal neurologic deficits. The patient has normal speech MUSCULOSKELETAL: There is no evidence of acute injury. ED Course Vital Signs 07/27/19 11:41 Temperature 97.8 F Pulse Rate 67 Respiratory 20 Rate Blood Pressure 119/63 O2 Sat by Pulse 96 Oximetry - Consultations Consultation #1: 07/27/19 15:02 Nephrology paged ED Medical Decision Making - Lab Data Result diagrams: 07/27/19 12:41 07/27/19 14:44 Laboratory Tests 07/27/19 07/27/19 07/27/19 12:41 12:41 14:44 WBC 5.4 RBC 2.82 L Hgb 8.6 L Hct 26.4 L MCV 94 MCH 31 MCHC 33 RDW 18.9 H Plt Count 130 L Baso % (Auto) [place] Tender Add Manual Diff Complete Total Counted 100 Seg Neuts % (Manual) 83.0 H Band Neutrophils % 0 Lymphocytes % (Manual) 14.0 Reactive Lymphs % (Man) 0 Monocytes % (Manual) 2.0 Eosinophils % (Manual) 1.0 Basophils % (Manual) 0 Metamyelocytes % 0 Myelocytes % 0 Promyelocytes % 0 Blast Cells % 0 Nucleated RBC % Not Reportable Seg Neutrophils # Man 4.5 Band Neutrophils # 0.0 Lymphocytes # (Manual) 0.8 L Abs React Lymphs (Man) 0.0 Monocytes # (Manual) 0.1 Eosinophils # (Manual) 0.1 Basophils # (Manual) 0.0 Metamyelocytes # 0.0 Myelocytes # 0.0 Promyelocytes # 0.0 Blast Cells # 0.0 WBC Morphology Not Reportable Hypersegmented Neuts Not Reportable Hyposegmented Neuts Not Reportable Hypogranular Neuts Not Reportable Smudge Cells Not Reportable Toxic Granulation Not Reportable Toxic Vacuolation Not Reportable Dohle Bodies Not Reportable Pelger-Huet Anomaly Not Reportable Melissa Rods Not Reportable Platelet Estimate Consistent w auto Clumped Platelets Not Reportable Plt Clumps, EDTA Not Reportable Large Platelets Not Reportable Giant Platelets Not Reportable Platelet Satelliting Not Reportable Plt Morphology Comment Not Reportable RBC Morphology Not Reportable Dimorphic RBCs Not Reportable Polychromasia Not Reportable Hypochromasia Not Reportable Poikilocytosis Few Anisocytosis Few Microcytosis Not Reportable Macrocytosis Not Reportable Spherocytes Not Reportable Pappenheimer Bodies Not Reportable Sickle Cells Not Reportable Target Cells Not Reportable Tear Drop Cells Not Reportable Ovalocytes Not Reportable Helmet Cells Not Reportable Leger-[place] Bodies Not Reportable [place] Rings Not Reportable Frisco Cells Few Bite Cells Not Reportable Crenated Cell Not Reportable Elliptocytes Not Reportable Acanthocytes (Spur) Not Reportable Rouleaux Not Reportable Hemoglobin C Crystals Not Reportable Schistocytes Not Reportable Malaria parasites Not Reportable Vineet Bodies Not Reportable Hem Pathologist Commnt No Sodium TNR 135 L Potassium TNR 5.0 Chloride TNR 95.0 L Carbon Dioxide TNR 20 L Anion Gap TNR 25 BUN TNR 59 H Creatinine TNR 8.4 H Estimated GFR TNR 7 BUN/Creatinine Ratio TNR 7 Glucose TNR 227 H Calcium TNR 9.2 - Radiology Data Radiology results: report reviewed (Chest x-ray), image reviewed (Chest x-ray) interpreted by me: Chest x-ray-no focal infiltrates, no pneumothorax [facility] [address] [place] [address] XRay Report Signed Patient: TRICE GAMBLE MR #: [id number] : 1985 Acct:[id number] Age/Sex: 33 / F ADM Date: 07/27/19 Loc: ED Attending Dr: Ordering Physician: AZALIA BARAJAS MD Date of Service: 07/27/19 Procedure(s): XR chest 1V ap Accession Number(s): [id number] cc: AZALIA BARAJAS MD Fluoro Time In Minutes: CHEST 1 VIEW 07/27/2019 12:27 PM INDICATION / CLINICAL INFORMATION: Shortness of breath. COMPARISON: Chest x-ray on 07/25/2019. FINDINGS: SUPPORT DEVICES: None. HEART / MEDIASTINUM: Stable. Moderate cardiomegaly. LUNGS / PLEURA: No significant pulmonary or pleural abnormality. No pneumothorax. ADDITIONAL FINDINGS: No significant additional findings. IMPRESSION: 1. Stable moderate cardiomegaly without adverse change from the prior study. Signer Name: Mo Starr MD Signed: 07/27/2019 1:32 PM Workstation Name: [id number] Transcribed By: YULISA Dictated By: Mo Starr MD Electronically Authenticated By: Mo Starr MD Signed Date/Time: 07/27/19 133 DD/ 1331 TD/TT: - Differential Diagnosis End-stage renal disease, hyperkalemia, volume overload Critical care attestation.: If time is entered above; I have spent that time in minutes in the direct care of this critically ill patient, excluding procedure time. ED Disposition Clinical Impression: ESRD needing dialysis Disposition: OP ADMIT IP TO THIS HOSP Is pt being admited?: Yes Does the pt Need Aspirin: No Condition: Fair Referrals: PRIMARY CARE, [Primary Care Provider] - 3-5 Days Time of Disposition: 15:54 (Hospitalist notified (Dr. Potter))
[2019-07-27 13:26] LABS: Hematocrit 26.4 % (30.3-42.9); Hemoglobin 8.6 gm/dl (10.1-14.3); Mean Corpuscular HGB Conc 33 % (30-34); Mean Corpuscular Volume 94 fl (79-97); Platelet Count 130 K/mm3 (140-440); Red Blood Count 2.82 M/mm3 (3.65-5.03); Red Cell Distribution Width 18.9 % (13.2-15.2)
--- NOTE | 2019-07-27 13:36 | XRay Report ---
CHEST 1 VIEW 07/27/2019 12:27 PM INDICATION / CLINICAL INFORMATION: Shortness of breath. COMPARISON: Chest x-ray on 07/25/2019. FINDINGS: SUPPORT DEVICES: None. HEART / MEDIASTINUM: Stable. Moderate cardiomegaly. LUNGS / PLEURA: No significant pulmonary or pleural abnormality. No pneumothorax. ADDITIONAL FINDINGS: No significant additional findings. IMPRESSION: 1. Stable moderate cardiomegaly without adverse change from the prior study. Signer Name: Mo Starr MD Signed: 07/27/2019 1:32 PM Workstation Name: [id number]
[2019-07-27 13:55] LABS: BUN/Creatinine Ratio TNR; Blood Urea Nitrogen TNR mg/dL (7-17)
[2019-07-27 13:56] LABS: Calcium TNR mg/dL (8.4-10.2); Hemolysis Index TNR
[2019-07-27 14:10] LABS: Basophils % (Manual) 0 % (0.0-1.8); Total Cells Counted 100
[2019-07-27 14:11] LABS: Anisocytosis Few; Burr Cells Few
[2019-07-27 14:12] LABS: Platelet Estimate Consistent w Auto; Poikilocytosis Few
[2019-07-27 15:14] LABS: Calcium 9.2 mg/dL (8.4-10.2)
[2019-07-27] MEDS ORDERED: EPOETIN ALFA 10,000 UNIT/1 ML INJ IV PRN (15:42)
[2019-07-27] MEDS ORDERED: SODIUM CHLORIDE 0.9% 100 ML IV PRN (15:42)
[2019-07-27] MEDS ORDERED: ACETAMINOPHEN 325 MG TAB PO PRN (16:42)
[2019-07-27] MEDS ORDERED: ONDANSETRON 4 MG/2 ML INJ IV PRN (16:42)
--- NOTE | 2019-07-27 16:42 | History and Physical Report ---
History of Present Illness Chief complaint: I need dialysis History of present illness: 33 YO Female with ESRD on HD(M,W,F) last dialyzed on Tuesday, HTN DM, Nicotine Dependence, Obesity presents to ED for evaluation. Patient states that she recently moved to the [facility] from [place] and was unable to have dialysis arranged and is in need of dialysis. Patient transported to [facility] via private vehicle. Patient seen and evaluated in the emergency department. Lab and imaging studies reviewed. Patient was found to have end-stage renal disease in need of dialysis, hyperkalemia, and metabolic acidosis which is secondary to noncompliance. Patient placed in observation status and admitted to medical boris or. Nephrology service consulted in ED. Patient denies fever, chills, chest pain, palpitations, productive cough, skin rash, known ill contacts. Prior admission on 07/25/2019 reviewed. No medication listed at time of admission for reconciliation. PUI?: No PUI?: No Past History Past Medical History: diabetes, ESRD, hypertension, other (See HPI) Past Surgical History: Other (Dialysis access) Social history: single Family history: diabetes, hypertension Medications and Allergies Allergies Allergy/AdvReac Type Severity Reaction Status Date / Time No Known Allergies Allergy Verified 07/27/19 11:41 Home Medications Medication Instructions Recorded Confirmed Last Taken Type Aspirin [Aspirin BABY CHEW TAB] 81 mg PO QDAY 07/25/19 07/25/19 Unknown History Insulin Glargine [Lantus VIAL] 3 units SUB-Q QAM 07/25/19 07/25/19 Unknown History Insulin Glargine [Lantus VIAL] 6 units SUB-Q QHS 07/25/19 07/25/19 Unknown History Lispro Insulin [HumaLOG] 0 unit SQ ACHS 07/25/19 07/25/19 Unknown History NIFEdipine [Nifedipine ER] 30 mg PO BID 07/25/19 07/25/19 Unknown History Pantoprazole [Protonix TAB] 40 mg PO QDAY 07/25/19 07/25/19 Unknown History Vitamin B Complex 1 each PO DAILY 07/25/19 07/25/19 Unknown History carvediloL [Coreg] 25 mg PO BID 07/25/19 07/25/19 Unknown History Calcium Acetate [Phoslo] 2,001 mg PO TID 07/26/19 07/26/19 2 Days Ago History ~07/24/19 Lispro Insulin [HumaLOG] 2 unit SQ QAC 07/26/19 07/26/19 Unknown History Lispro Insulin [HumaLOG] See Protocol SQ QACHS 07/26/19 07/26/19 2 Days Ago History ~07/24/19 Active Meds: Active Medications Epoetin Evans (Procrit) 10,000 unit IV AUDREY PRN PRN Reason: hemodialysis Sodium Chloride (Nacl 0.9%) 100 mls @ 999 mls/hr IV AUDREY PRN PRN Reason: Hypotension Review of Systems Constitutional: no weight loss, no weight gain, no fever, no chills Ears, nose, mouth and throat: no ear pain, no ear discharge, no tinnitis, no decreased hearing, no nose pain, no nasal congestion Breasts: no change in shape, no swelling, no mass Cardiovascular: no chest pain, no orthopnea, no palpitations, no syncope Respiratory: no cough, no cough with sputum, no excessive sputum, no shortness of breath, no dyspnea on exertion Gastrointestinal: no abdominal pain, no nausea, no vomiting, no diarrhea Genitourinary Female: no pelvic pain, no flank pain, no menorrhagia, no dysuria, no urinary frequency, no urgency Rectal: no pain, no incontinence, no bleeding Musculoskeletal: no neck stiffness, no neck pain Integumentary: no rash, no pruritis, no redness, no sores, no wounds Neurological: no transient paralysis, no paralysis, no weakness, no parathesias, no numbness, no tingling Psychiatric: no anxiety, no memory loss, no change in sleep habits, no sleep disturbances, no insomnia, no hypersomnia Endocrine: no cold intolerance, no heat intolerance, no excessive thirst, no polydipsia, no polyuria Hematologic/Lymphatic: no easy bruising, no easy bleeding, no lymphadenopathy, no lymphedema Allergic/Immunologic: no urticaria, no wheezing, no anaphylaxis Exam - Constitutional Vitals: Temp Pulse Resp BP Pulse Ox 97.8 F 67 20 119/63 96 07/27/19 11:41 07/27/19 11:41 07/27/19 11:41 07/27/19 11:41 07/27/19 11:41 General appearance: Present: mild distress - EENT Eyes: Present: PERRL ENT: hearing intact, clear oral mucosa - Neck Neck: Present: supple, normal ROM - Respiratory Respiratory effort: normal Respiratory: bilateral: CTA - Cardiovascular Heart Sounds: Present: S1 & S2. Absent: rub, click - Extremities Extremities: pulses symmetrical, No edema Peripheral Pulses: within normal limits - Abdominal General gastrointestinal: Present: soft, non-tender, non-distended, normal bowel sounds Female genitourinary: Present: normal - Integumentary Integumentary: Present: clear, warm, dry - Musculoskeletal Musculoskeletal: gait normal, strength equal bilaterally - Psychiatric Psychiatric: appropriate mood/affect, intact judgment & insight - Neurologic Neurologic: CNII-XII intact, moves all extremities Results - Labs CBC & Chem 7: 07/27/19 12:41 07/27/19 14:44 Labs: Abnormal lab results 07/27/19 07/27/19 Range/Units 12:41 14:44 RBC 2.82 L (3.65-5.03) M/mm3 Hgb 8.6 L (10.1-14.3) gm/dl Hct 26.4 L (30.3-42.9) % RDW 18.9 H (13.2-15.2) % Plt Count 130 L (140-440) K/mm3 Seg Neuts % (Manual) 83.0 H (40.0-70.0) % Lymphocytes # (Manual) 0.8 L (1.2-5.4) K/mm3 Sodium 135 L (137-145) mmol/L Chloride 95.0 L (98-107) mmol/L Carbon Dioxide 20 L (22-30) mmol/L BUN 59 H (7-17) mg/dL Creatinine 8.4 H (0.7-1.2) mg/dL Glucose 227 H (65-100) mg/dL Assessment and Plan - Patient Problems (1) ESRD needing dialysis Current Visit: Yes Status: Acute Plan to address problem: Nephrology team consulted in ED, strict I/O/monitor urine output every shift, daily weight, dialysis as per renal team. (2) Metabolic acidosis Current Visit: No Status: Acute Plan to address problem: BMP, repeat BMP in a.m., dialysis as per renal team (3) Noncompliance of patient with renal dialysis Current Visit: No Status: Acute Plan to address problem: Patient counseled. Patient informed of risk of continued noncompliance with dialysis. Patient knowledges understanding instructions (4) Nicotine dependence Current Visit: No Status: Acute Qualifiers: Nicotine product type: cigarettes Substance use status: in withdrawal Qualified Code(s): F17.213 - Nicotine dependence, cigarettes, with withdrawal Plan to address problem: Smoking cessation counseling, supportive care. (5) DVT prophylaxis Current Visit: No Status: Acute Plan to address problem: SCD to bilateral lower extremities while in bed, patient is ambulatory.
[2019-07-27] MEDS ORDERED: CALCIUM ACETATE 667 MG CAP PO SCH (18:00)
[2019-07-27] MEDS ORDERED: SODIUM CHLORIDE*PRIMING MACHINE ONLY FOR DIALYSIS MC ONE (20:51)
[2019-07-27] MEDS ORDERED: carvediloL 25 MG TAB PO SCH (22:00)
[2019-07-27] MEDS ORDERED: NIFEdipine XL 30 MG TAB PO SCH (22:00)
[2019-07-27] MEDS ORDERED: NON-FORMULARY EACH (Nifedipine [Nifedipine Er] 30 MG) PO SCH (22:00)
[2019-07-27 22:14] VITALS: BP 170/80
[2019-07-28] MEDS ORDERED: ASPIRIN 81 MG TAB CHEW PO SCH (10:00)
[2019-07-28] MEDS ORDERED: B COMPLEX W/VITAMIN C TAB PO SCH (10:00)
[2019-07-28] MEDS ORDERED: PANTOPRAZOLE 40 MG TAB PO SCH (10:00)
[2019-07-28] MEDS ORDERED: VITAMIN B COMPLEX PO SCH (10:00)
== END 2019-07-27 23:04 | disposition left against medical advice (07) ==
LOC: ED 11:32 → 4A 16:42
PROVIDERS: ADMIT Internal Medicine; ATTEND Internal Medicine
DX: I12.0 Hypertensive chronic kidney disease with stage 5 chronic kidney disease or end stage renal disease (principal); E11.22 Type 2 diabetes mellitus with diabetic chronic kidney disease; N18.6 End stage renal disease; E87.2 Acidosis; E66.9 Obesity, unspecified; F17.213 Nicotine dependence, cigarettes, with withdrawal; Z91.15 Patient's noncompliance with renal dialysis; Z99.2 Dependence on renal dialysis; Z79.82 Long term (current) use of aspirin; Z79.84 Long term (current) use of oral hypoglycemic drugs; Z79.899 Other long term (current) drug therapy; Z68.31 Body mass index [BMI] 31.0-31.9, adult
CPT/HCPCS: 36415; 71045; 80048; 85007; 85025; 96374; 99284; G0257; G0378; J0885; J7030

== ENCOUNTER 2019-07-31 11:31 | Inpatient (IN) | payer OTHER ==
[2019-07-31 12:59] LABS: Basophils % (Auto) 0.9 % (0.0-1.8); Eosinophils # (Auto) 0.2 K/mm3 (0.0-0.4); Eosinophils % (Auto) 4.1 % (0.0-4.3); Hematocrit 29.1 % (30.3-42.9); Hemoglobin 9.6 gm/dl (10.1-14.3); Lymphocytes # (Auto) 0.9 K/mm3 (1.2-5.4); Lymphocytes % (Auto) 18.5 % (13.4-35.0); Mean Corpuscular HGB Conc 33 % (30-34); Mean Corpuscular Volume 93 fl (79-97); Monocytes # (Auto) 0.2 K/mm3 (0.0-0.8); Monocytes % (Auto) 4.8 % (0.0-7.3); Platelet Count 106 K/mm3 (140-440); Red Blood Count 3.13 M/mm3 (3.65-5.03); Red Cell Distribution Width 18.1 % (13.2-15.2)
[2019-07-31 13:17] LABS: Calcium 10.2 mg/dL (8.4-10.2)
[2019-07-31] MEDS ORDERED: INSULIN REGULAR, HUMAN 100 UNITS/1 ML IV ONE (13:22)
--- NOTE | 2019-07-31 13:22 | Emergency Department Report ---
HPI - General Chief Complaint: Dyspnea/Respdistress Time Seen by Provider: 07/31/19 12:27 - HPI HPI: 33-year-old -[place] female presents to the emergency department for dialysis. The patient is currently unassigned to any outpatient dialysis center and came here twice last week for dialysis. She says that her hotel maintenance worker is Dr. Dozier. She reports some mild shortness of breath since last night but denies any fever, chest pain, cough, headache, nausea, vomiting. She also has a history of insulin-dependent diabetes, hypertension. She has not taken anything for symptoms prior to presentation today. No recent travel or sick contacts at home. ED Past Medical Hx - Past Medical History Previous Medical History?: Yes Hx Hypertension: Yes Hx Diabetes: Yes Hx Renal Disease: Yes (M W F) Additional medical history: Denies chronic liver disease - Surgical History Past Surgical History?: No Additional Surgical History: fistula L arm, paracentesis - Social History Smoking Status: Current Every Day Smoker Substance Use Type: None - Medications Home Medications: Home Medications Medication Instructions Recorded Confirmed Last Taken Type Aspirin [Aspirin BABY CHEW TAB] 81 mg PO QDAY 07/25/19 07/31/19 Unknown History Insulin Glargine [Lantus VIAL] 3 units SUB-Q QAM 07/25/19 07/31/19 Unknown History Insulin Glargine [Lantus VIAL] 6 units SUB-Q QHS 07/25/19 07/31/19 Unknown History NIFEdipine [Nifedipine ER] 30 mg PO BID 07/25/19 07/31/19 Unknown History Pantoprazole [Protonix TAB] 40 mg PO QDAY 07/25/19 07/31/19 Unknown History Vitamin B Complex 1 each PO DAILY 07/25/19 07/31/19 Unknown History carvediloL [Coreg] 25 mg PO BID 07/25/19 07/31/19 Unknown History Calcium Acetate [Phoslo] 2,001 mg PO TID 07/26/19 07/31/19 2 Days Ago History ~07/24/19 Lispro Insulin [HumaLOG] 2 unit SQ QAC 07/26/19 07/31/19 Unknown History ED Review of Systems ROS: Stated complaint: DIALYSIS Other details as noted in HPI Comment: All other systems reviewed and negative Constitutional: denies: chills, fever Eyes: denies: eye pain, vision change ENT: denies: ear pain, throat pain Respiratory: shortness of breath. denies: cough Cardiovascular: denies: chest pain, palpitations Gastrointestinal: denies: abdominal pain, vomiting Genitourinary: denies: dysuria, discharge Musculoskeletal: denies: back pain, arthralgia Skin: denies: rash, lesions Neurological: denies: headache, weakness Physical Exam - Physical Exam Vital Signs: Vital Signs 07/31/19 11:34 Temperature 97.4 F L Pulse Rate 69 Respiratory 22 Rate Blood Pressure 126/75 O2 Sat by Pulse 96 Oximetry Physical Exam: GENERAL: The patient is well-developed well-nourished. HENT: Normocephalic. Atraumatic. Patient has moist mucous membranes. EYES: Extraocular motions are intact. NECK: Supple. Trachea is midline. CHEST/LUNGS: Clear to auscultation. There is no respiratory distress noted. HEART/CARDIOVASCULAR: Regular. There is no tachycardia. ABDOMEN: Abdomen is soft, nontender. Patient has normal bowel sounds. SKIN: Skin is warm and dry. NEURO: The patient is awake, alert, and oriented. The patient is cooperative. The patient has no focal neurologic deficits. Normal speech. MUSCULOSKELETAL: There is no tenderness or deformity. There is no evidence of acute injury. ED Course Vital Signs 07/31/19 11:34 Temperature 97.4 F L Pulse Rate 69 Respiratory 22 Rate Blood Pressure 126/75 O2 Sat by Pulse 96 Oximetry - Consultations Consultation #1: 07/31/19 13:42 I spoke with the patient's hotel maintenance worker, Dr. Dozier, who will arrange for the patient to receive dialysis and has been consulted. ED Medical Decision Making - Lab Data Result diagrams: 07/31/19 12:31 07/31/19 12:31 - Medical Decision Making This patient presents to the emergency department to receive dialysis. She does not have any outpatient assigned dialysis center yet. She complains of some mild shortness of breath since last night. No signs of any respiratory or acute distress. Vital signs do not show any fever or hypoxia. Patient refused chest x-ray. Her labs show hypokalemia with a potassium of 5.8, BUN of 76, creatinine of 11, and hyperglycemia with a blood sugar of 371. An IV will be placed. At first the patient refused insulin but is aware of her hyperglycemia so she was encouraged to take the insulin. Nephrology has been contacted and consulted. The patient will be admitted to the hospitalist service and was accepted for admission by Dr Goodson. Critical Care Time: No Critical care attestation.: If time is entered above; I have spent that time in minutes in the direct care of this critically ill patient, excluding procedure time. ED Disposition Clinical Impression: ESRD needing dialysis, Hyperkalemia Uncontrolled diabetes mellitus Qualifiers: Diabetes mellitus type: type 1 Glycemic state: with hyperglycemia Qualified Code(s): E10.65 - Type 1 diabetes mellitus with hyperglycemia Disposition: OP ADMIT IP TO THIS HOSP Is pt being admited?: Yes Condition: Fair Referrals: PRIMARY CARE, [Primary Care Provider] - 3-5 Days Time of Disposition: 13:40
[2019-07-31] MEDS ORDERED: SODIUM CHLORIDE 0.9% 100 ML IV PRN (13:51)
[2019-07-31] MEDS ORDERED: INSULIN REGULAR, HUMAN 100 UNITS/1 ML SUB-Q ONE (14:07)
--- NOTE | 2019-07-31 14:35 | Consultation ---
History of Present Illness - Reason for Consult Consult date: 07/31/19 end stage renal disease, hyperkalemia - History of Present Illness The patient is a 33 YO female with history significant for Obesity, DM, HTN, ESRD on HD(was on MWF schedule), Anemia, Tabacco smoking and medical non-complia nce who presented to [facility] ED 07/30 in need of hemodialysis. Patient recently moved to the [facility] from [place] without arranging the transfer of dialysis chair. She was last dialyzed at this facility on 07/27/2019. She has been coming to this facility for hemodialysis. She left the hospital AMA twice over the past week. Patient denies fever, chills, chest pain, cough, sob, leg swelling, weakness, skin rash or known ill contacts. Patient was less cooperative for history and exam. Labs work revealed K 5.8, bicarb 20 and Hb 9.6. Nephrology was consulted for further evaluation. Past History Past Medical History: diabetes, dialysis, ESRD, hypertension, other (See HPI.) Medications and Allergies Allergies Allergy/AdvReac Type Severity Reaction Status Date / Time No Known Allergies Allergy Verified 07/31/19 11:39 Home Medications Medication Instructions Recorded Confirmed Last Taken Type Aspirin [Aspirin BABY CHEW TAB] 81 mg PO QDAY 07/25/19 07/31/19 Unknown History Insulin Glargine [Lantus VIAL] 3 units SUB-Q QAM 07/25/19 07/31/19 Unknown Histo ry Insulin Glargine [Lantus VIAL] 6 units SUB-Q QHS 07/25/19 07/31/19 Unknown History NIFEdipine [Nifedipine ER] 30 mg PO BID 07/25/19 07/31/19 Unknown History Pantoprazole [Protonix TAB] 40 mg PO QDAY 07/25/19 07/31/19 Unknown History Vitamin B Complex 1 each PO DAILY 07/25/19 07/31/19 Unknown History carvediloL [Coreg] 25 mg PO BID 07/25/19 07/31/19 Unknown History Calcium Acetate [Phoslo] 2,001 mg PO TID 07/26/19 07/31/19 2 Days Ago History ~07/24/19 Lispro Insulin [HumaLOG] 2 unit SQ QAC 07/26/19 07/31/19 Unknown History Active Meds: Active Medications Sodium Chloride (Nacl 0.9%) 100 mls @ 999 mls/hr IV AUDREY PRN PRN Reason: Hypotension Review of Systems Constitutional: no weight loss, no fever, no chills Breasts: deferred Respiratory: no cough, no hemoptysis, no shortness of breath, no sleep apnea, no home oxygen Gastrointestinal: no abdominal pain, no nausea, no vomiting, no diarrhea, no melena Genitourinary Female: no dysuria, no hematuria Rectal: no bleeding Musculoskeletal: no morning stiffness, no muscle weakness, no muscle cramps Integumentary: no sores, no wounds, no jaundice Neurological: no change in speech, no change in mentation, no confusion, no memory loss Exam - Vital Signs Vital signs: Vital Signs Temp Pulse Resp BP Pulse Ox 97.4 F L 69 22 126/75 96 07/31/19 11:34 07/31/19 11:34 07/31/19 11:34 07/31/19 11:34 07/31/19 11:34 - General Appearance General appearance: well-developed, well-nourished, appears stated age, other (no distress, examined at the HD unit, RN present at the bedside.) EENT: ATNC, PERRL, mucous membranes moist, hearing intact, vision intact Neck: Present: neck supple, trachea midline Respiratory: Clear to Ascultation Heart: regular, S1S2, no murmurs Gastrointestinal: Present: normoactive bowel sounds, obese. Absent: tenderness Integumentary: no rash, warm and dry Neurologic: no focal deficit, no asterixis, alert and oriented x3 Musculoskeletal: Present: other (trace LE edema noted, L arm AVF) Results - Lab Results 07/31/19 12:31 07/31/19 12:31 Most recent lab results Calcium 10.2 mg/dL (8.4-10.2) 07/31/19 12:31 Assessment and Plan 1. ESRD: Patient was on maintenance hemodialysis three times a week, MWF schedule. Last outpatient HD 07/20/19. Hemodialysis: 07/30. 2. FEN: Hyperkalemia, HD today, monitor. Monitor lytes. 3. Anemia, POA: Likely secondary to ESRD. Epogen as needed. 4. Hypertension: Continue home meds. Monitor BP. 5. DM. 6. Medical non-compliance. Patient need outpatient HD chair. Explained that the hospital staff will not be able to help getting her a outpatient dialysis chair if she dont stay in the hospital. She refused to stay in the hospital and verbalized understanding.
--- NOTE | 2019-07-31 17:29 | History and Physical Report ---
History of Present Illness Date of examination: 07/31/19 Date of admission: 07/31/19 13:41 Chief complaint: Comes in for shortness of breath and missed hemodialysis. History of present illness: 33-year-old -[place] female with history of insulin-dependent diabetes, hypertension and gastroesophageal reflux disease and end-stage renal disease comes to the emergency room frequently for dialysis. After dialysis patient signed out AGAINST MEDICAL ADVICE. Patient could not have dialysis chair arranged. The dialysis center once a coronavirus to be ruled out. Patient also has shortness of breath on exertion secondary to missed dialysis. No chest pain. No fever or chills. No recent exposure to coronavirus. Patient is being admitted in observation status for emergency hemodialysis and also coronavirus PCR to rule out coronavirus so that she can get a dialysis chair. Past Medical History Previous Medical History?: Yes Hypertension: Yes Diabetes: Yes Renal Disease: Yes (M W F) Additional medical history: Denies chronic liver disease - Surgical History Past Surgical History?: No Additional Surgical History: fistula L arm, paracentesis - Social History Smoking Status: Current Every Day Smoker Substance Use Type: None Family history Hypertension - Medications Home Medications: Home Medications Medication Instructions Recorded Confirmed Last Taken Type Aspirin [Aspirin BABY CHEW TAB] 81 mg PO QDAY 07/25/19 07/31/19 Unknown History Insulin Glargine [Lantus VIAL] 3 units SUB-Q QAM 07/25/19 07/31/19 Unknown History Insulin Glargine [Lantus VIAL] 6 units SUB-Q QHS 07/25/19 07/31/19 Unknown History NIFEdipine [Nifedipine ER] 30 mg PO BID 07/25/19 07/31/19 Unknown History Pantoprazole [Protonix TAB] 40 mg PO QDAY 07/25/19 07/31/19 Unknown History Vitamin B Complex 1 each PO DAILY 07/25/19 07/31/19 Unknown History carvediloL [Coreg] 25 mg PO BID 07/25/19 07/31/19 Unknown History Calcium Acetate [Phoslo] 2,001 mg PO TID 07/26/19 07/31/19 2 Days Ago History ~07/24/19 Lispro Insulin [HumaLOG] 2 unit SQ QAC 07/26/19 07/31/19 Unknown History Review of Systems ROS: Stated complaint: DIALYSIS Other details as noted in HPI Comment: All other systems reviewed and negative Constitutional: denies: chills, fever Eyes: denies: eye pain, vision change ENT: denies: ear pain, throat pain Respiratory: shortness of breath. denies: cough Cardiovascular: denies: chest pain, palpitations Gastrointestinal: denies: abdominal pain, vomiting Genitourinary: denies: dysuria, discharge Musculoskeletal: denies: back pain, arthralgia Skin: denies: rash, lesions Neurological: denies: headache, weakness Past History Past Medical History: diabetes, dialysis, ESRD, hypertension, other (See HPI.) Medications and Allergies Allergies Allergy/AdvReac Type Severity Reaction Status Date / Time No Known Allergies Allergy Verified 07/31/19 11:39 Home Medications Medication Instructions Recorded Confirmed Last Taken Type Aspirin [Aspirin BABY CHEW TAB] 81 mg PO QDAY 07/25/19 07/31/19 Unknown History Insulin Glargine [Lantus VIAL] 3 units SUB-Q QAM 07/25/19 07/31/19 Unknown History Insulin Glargine [Lantus VIAL] 6 units SUB-Q QHS 07/25/19 07/31/19 Unknown History NIFEdipine [Nifedipine ER] 30 mg PO BID 07/25/19 07/31/19 Unknown History Pantoprazole [Protonix TAB] 40 mg PO QDAY 07/25/19 07/31/19 Unknown History Vitamin B Complex 1 each PO DAILY 07/25/19 07/31/19 Unknown History carvediloL [Coreg] 25 mg PO BID 07/25/19 07/31/19 Unknown History Calcium Acetate [Phoslo] 2,001 mg PO TID 07/26/19 07/31/19 2 Days Ago History ~07/24/19 Lispro Insulin [HumaLOG] 2 unit SQ QAC 07/26/19 07/31/19 Unknown History Active Meds: Active Medications Sodium Chloride (Nacl 0.9%) 100 mls @ 999 mls/hr IV AUDREY PRN PRN Reason: Hypotension Exam - Constitutional Vitals: Temp Pulse Resp BP Pulse Ox 97.4 F L 70 18 129/64 96 07/31/19 14:30 07/31/19 17:00 07/31/19 14:30 07/31/19 17:00 07/31/19 11:34 General appearance: Present: no acute distress, well-nourished - EENT Eyes: Present: PERRL ENT: hearing intact, clear oral mucosa - Neck Neck: Present: supple, normal ROM - Respiratory Respiratory effort: normal Respiratory: bilateral: CTA - Cardiovascular Heart rate: 78 Rhythm: regular Heart Sounds: Present: S1 & S2. Absent: rub, click - Extremities Extremities: no ischemia, pulses intact, pulses symmetrical, No edema Peripheral Pulses: within normal limits - Abdominal General gastrointestinal: Present: soft, non-tender, non-distended, normal bowel sounds Female genitourinary: Present: normal - Rectal Rectal Exam: deferred - Integumentary Integumentary: Present: clear, warm, dry - Musculoskeletal Musculoskeletal: gait normal, strength equal bilaterally - Psychiatric Psychiatric: appropriate mood/affect, intact judgment & insight - Neurologic Neurologic: CNII-XII intact, moves all extremities - Allied Health Allied health notes reviewed: nursing, case management Results - Labs CBC & Chem 7: 07/31/19 12:31 08/01/19 04:02 Labs: Laboratory Last Values WBC 4.6 K/mm3 (4.5-11.0) 07/31/19 12:31 RBC 3.13 M/mm3 (3.65-5.03) L 07/31/19 12:31 Hgb 9.6 gm/dl (10.1-14.3) L 07/31/19 12:31 Hct 29.1 % (30.3-42.9) L 07/31/19 12:31 MCV 93 fl (79-97) 07/31/19 12:31 MCH 31 pg (28-32) 07/31/19 12:31 MCHC 33 % (30-34) 07/31/19 12:31 RDW 18.1 % (13.2-15.2) H 07/31/19 12:31 Plt Count 106 K/mm3 (140-440) L 07/31/19 12:31 Lymph % (Auto) 18.5 % (13.4-35.0) 07/31/19 12:31 [place] % (Auto) 4.8 % (0.0-7.3) 07/31/19 12:31 Eos % (Auto) 4.1 % (0.0-4.3) 07/31/19 12:31 Baso % (Auto) 0.9 % (0.0-1.8) 07/31/19 12:31 Lymph # 0.9 K/mm3 (1.2-5.4) L 07/31/19 12:31 [place] # 0.2 K/mm3 (0.0-0.8) 07/31/19 12:31 Eos # 0.2 K/mm3 (0.0-0.4) 07/31/19 12:31 Baso # 0.0 K/mm3 (0.0-0.1) 07/31/19 12:31 Seg Neutrophils % 71.7 % (40.0-70.0) H 07/31/19 12:31 Seg Neutrophils # 3.3 K/mm3 (1.8-7.7) 07/31/19 12:31 Sodium 136 mmol/L (137-145) L 07/31/19 12:31 Potassium 5.8 mmol/L (3.6-5.0) H 07/31/19 12:31 Chloride 92.5 mmol/L (98-107) L 07/31/19 12:31 Carbon Dioxide 20 mmol/L (22-30) L 07/31/19 12:31 Anion Gap 29 mmol/L 07/31/19 12:31 BUN 76 mg/dL (7-17) H 07/31/19 12:31 Creatinine 11.0 mg/dL (0.7-1.2) H 07/31/19 12:31 Estimated GFR 5 ml/min 07/31/19 12:31 BUN/Creatinine Ratio 7 % 07/31/19 12:31 Glucose 371 mg/dL (65-100) H 07/31/19 12:31 Calcium 10.2 mg/dL (8.4-10.2) 07/31/19 12:31 HCG, Qual Negative (Negative) 07/31/19 12:31 Short CBC 07/31/19 Range/Units 12:31 WBC 4.6 (4.5-11.0) K/mm3 Hgb 9.6 L (10.1-14.3) gm/dl Hct 29.1 L (30.3-42.9) % Plt Count 106 L (140-440) K/mm3 BMP 07/31/19 08/01/19 12:31 04:02 Sodium 136 L 141 Potassium 5.8 H 4.7 Chloride 92.5 L 99.8 Carbon Dioxide 20 L 24 BUN 76 H 47 H Creatinine 11.0 H 6.9 H Glucose 371 H 155 H Calcium 10.2 9.1 Assessment and Plan Advance Directives: Yes (Full code) VTE prophylaxis?: Chemical Plan of care discussed with patient/family: Yes - Patient Problems (1) Volume overload Current Visit: Yes Status: Acute Plan to address problem: Volume overload Patient being taken for emergent hemodialysis for increased ultrafiltration and removal of fluid (2) ESRD needing dialysis Current Visit: Yes Status: Chronic Plan to address problem: Patient being taken for emergent hemodialysis (3) Hyperkalemia Current Visit: Yes Status: Acute Plan to address problem: Treated in the emergency room with anti-hyperkalemia cocktail Recheck potassium (4) Hypertension Current Visit: Yes Status: Chronic Qualifiers: Hypertension type: essential hypertension Qualified Code(s): I10 - Essentia l (primary) hypertension Plan to address problem: Continue home antihypertensives and monitor blood pressure. Adjust blood medications if necessary (5) Insulin dependent diabetes mellitus Current Visit: Yes Status: Chronic Plan to address problem: Continue home insulin and coverage. (6) GERD (gastroesophageal reflux disease) Current Visit: Yes Status: Chronic Qualifiers: Esophagitis presence: without esophagitis Qualified Code(s): K21.9 - Gastr o-esophageal reflux disease without esophagitis Plan to address problem: Continue Protonix. (7) DVT prophylaxis Current Visit: No Status: Acute Plan to address problem: Heparin 5000 every 12 and GI prophylaxis (8) Discharge planning issues Current Visit: Yes Status: Acute Plan to address problem: Patient agreed to get coronavirus PCR screen so that she can get a hemodialysis chair Case management for hemodialysis Patient can be discharged after hemodialysis today \Hopefully coronavirus PCR should be done at 8 AM tomorrow morning
[2019-07-31] MEDS ORDERED: VITAMIN B COMPLEX PO SCH (17:45)
[2019-07-31] MEDS ORDERED: ONDANSETRON 4 MG/2 ML INJ IV PRN (17:46)
[2019-07-31] MEDS ORDERED: HYDROmorphone 1 MG/1 ML INJ IV PRN (17:46)
[2019-07-31] MEDS ORDERED: oxyCODONE /ACETAMINOPHEN 5-325MG TAB PO PRN (17:46)
[2019-07-31] MEDS ORDERED: ACETAMINOPHEN 325 MG TAB PO PRN (17:46)
[2019-07-31] MEDS: PANTOPRAZOLE 40 MG TAB PO SCH (18:47)
[2019-07-31] MEDS: ASPIRIN 81 MG TAB CHEW PO SCH (18:47)
[2019-07-31] MEDS: CALCIUM ACETATE 667 MG CAP PO SCH (19:33)
[2019-07-31] MEDS ORDERED: NON-FORMULARY EACH (Nifedipine [Nifedipine Er] 30 MG) PO SCH (22:00)
[2019-07-31] MEDS: FAMOTIDINE 10 MG TAB PO SCH (22:09)
[2019-07-31] MEDS: NIFEdipine XL 30 MG TAB PO SCH (22:09)
[2019-07-31] MEDS: carvediloL 25 MG TAB PO SCH (22:09)
[2019-07-31] MEDS: INSULIN GLARGINE 100 UNITS/ML SUB-Q SCH ×2 (22:10→22:14)
[2019-07-31] MEDS: INSULIN LISPRO 100 UNIT/ML SUB-Q SCH ×2 (22:10→22:16)
[2019-08-01 04:58] LABS: Calcium 9.1 mg/dL (8.4-10.2)
[2019-08-01] MEDS: INSULIN LISPRO 100 UNIT/ML SUB-Q SCH ×5 (07:33→21:46)
[2019-08-01] MEDS: CALCIUM ACETATE 667 MG CAP PO SCH ×3 (07:33→18:01)
--- NOTE | 2019-08-01 07:40 | Progress Note ---
Assessment and Plan Assessment and plan: Patient is a 33 yo woman with a history of IDDM type 1, hypertension, tobacco dependency and ESRD on hemodialysis with a Hemodialysis center due to severe non-adherence to attending dialysis sessions who presents to [facility] with SOB due to missed hemodialysis. This is patient's third time here since 07/25/2019, each time she left AMA. She had HD on 07/31/2019 and again on 08/01/19. She recently moved here from [facility] and did not set up HD. 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 Ascites: consult GI, she had paracentesis and work up at [facility], she report 5 liters removed about 1 month ago Disposition: try to obtain outpatient hemodialysis center, back on 07/25/19, [facility] was looking at her because she is from [facility], but they wanted a COVID-19 test first. Irvin Johnson [facility] internist medical doctor md declined chair due to non-compliance on 07/31/2019 History Interval history: Patient was seen and examined. Follow-up on current diagnosis ESRD. Overnight uneventful as no events directly reported to me. Patient denies any chest pain, shortness breath, nausea/vomiting or severe headaches. Imaging, nursing note, chart, labs and old chart reviewed. Discussed with patient. Hospitalist Physical - Physical exam Narrative exam: Gen: WDWN, NAD, Awake, Alert, Orientated HEENT: NCAT, EOMI, PERRL, OP Clear Neck: supple, no adenopathy, no thyromegaly, no JVD CVS/Heart: RRR, normal S1S2, pulses present bilaterally Chest/Lungs: CTA B, Symmetrical chest expansion, good air entry bilaterally GI/Abdomen: soft, distended, good bowel sounds, no guarding or rebound /Bladder: no suprapubic tenderness, no CVA or paraspinal tenderness Extermity/Skin: no obvious rash MSK: FROM x 4 Neuro: CN 2-12 grossly intact, no new focal deficits Psych: calm - Constitutional Vitals: Temp Pulse Resp BP Pulse Ox 98.1 F 81 18 182/92 93 08/01/19 05:10 08/01/19 05:10 08/01/19 05:10 08/01/19 05:10 08/01/19 05:10 General appearance: Present: no acute distress, well-nourished Results - Labs CBC & Chem 7: 07/31/19 12:31 08/01/19 04:02 Labs: Laboratory Last Values WBC 4.6 K/mm3 (4.5-11.0) 07/31/19 12:31 RBC 3.13 M/mm3 (3.65-5.03) L 07/31/19 12:31 Hgb 9.6 gm/dl (10.1-14.3) L 07/31/19 12:31 Hct 29.1 % (30.3-42.9) L 07/31/19 12:31 MCV 93 fl (79-97) 07/31/19 12: MCH 31 pg (28-32) 07/31/19 12: MCHC 33 % (30-34) 07/31/19 12:31 RDW 18.1 % (13.2-15.2) H 07/31/19 12:31 Plt Count 106 K/mm3 (140-440) L 07/31/19 12:31 Lymph % (Auto) 18.5 % (13.4-35.0) 07/31/19 12:31 [place] % (Auto) 4.8 % (0.0-7.3) 07/31/19 12: Eos % (Auto) 4.1 % (0.0-4.3) 07/31/19 12: Baso % (Auto) 0.9 % (0.0-1.8) 07/31/19 12:31 Lymph # 0.9 K/mm3 (1.2-5.4) L 07/31/19 12:31 [place] # 0.2 K/mm3 (0.0-0.8) 07/31/19 12:31 Eos # 0.2 K/mm3 (0.0-0.4) 07/31/19 12: Baso # 0.0 K/mm3 (0.0-0.1) 07/31/19 12:31 Seg Neutrophils % 71.7 % (40.0-70.0) H 07/31/19 12:31 Seg Neutrophils # 3.3 K/mm3 (1.8-7.7) 07/31/19 12:31 Sodium 141 mmol/L (137-145) 08/01/19 04:02 Potassium 4.7 mmol/L (3.6-5.0) 08/01/19 04:02 Chloride 99.8 mmol/L (98-107) 08/01/19 04:02 Carbon Dioxide 24 mmol/L (22-30) 08/01/19 04:02 Anion Gap 22 mmol/L 08/01/19 04:02 BUN 47 mg/dL (7-17) H 08/01/19 04:02 Creatinine 6.9 mg/dL (0.7-1.2) H 08/01/19 04:02 Estimated GFR 8 ml/min 08/01/19 04:02 BUN/Creatinine Ratio 7 % 08/01/19 04:02 Glucose 155 mg/dL (65-100) H 08/01/19 04:02 POC Glucose 263 (70-105) H 08/01/19 07:36 Calcium 9.1 mg/dL (8.4-10.2) 08/01/19 04:02 HCG, Qual Negative (Negative) 07/31/19 12:31 Lozano/IV: Voiding Method Toilet Active Medications - Current Medications Current Medications: Generic Name Dose Route Start Last Admin Trade Name Freq PRN Reason Stop Dose Admin Acetaminophen 650 mg 07/31/19 17:46 Tylenol PO Q4H PRN Pain MILD(1-3)/Fever >100.5/MALIK Aspirin 81 mg 07/31/19 18:00 07/31/19 18:47 Baby Aspirin PO 81 mg QDAY RHEA Administration Calcium Acetate 2,001 mg 07/31/19 20:00 08/01/19 07:33 Phoslo PO 2,001 mg TID RHEA Administration Carvedilol 25 mg 07/31/19 22:00 07/31/19 22:09 Coreg PO 25 mg BID RHEA Administration Famotidine 10 mg 07/31/19 22:00 07/31/19 22:09 Pepcid PO 10 mg BID RHEA Administration Hydromorphone HCl 0.5 mg 07/31/19 17:46 Dilaudid IV Q3H PRN Pain , Severe (7-10) Sodium Chloride 100 mls @ 999 mls/hr 07/31/19 13:51 Nacl 0.9% IV AUDREY PRN Hypotension Insulin Glargine 10 units 07/31/19 22:00 07/31/19 22:14 Lantus SUB-Q 6 units QHS RHEA Administration Insulin Human Lispro 0 unit 07/31/19 22:00 08/01/19 07:33 Humalog SUB-Q 4 unit ACHS RHEA Administration Protocol Multivitamins/Minerals 1 each 08/01/19 10:00 Theragran-M Tab PO QDAY RHEA Nifedipine 30 mg 07/31/19 22:00 07/31/19 22:09 Procardia Xl PO 30 mg BID RHEA Administration Ondansetron HCl 4 mg 07/31/19 17:46 Zofran IV Q8H PRN Nausea And Vomiting Oxycodone/Acetaminophen 1 tab 07/31/19 17:46 Percocet 5/325 PO Q6H PRN Pain, Moderate (4-6) Pantoprazole Sodium 40 mg 07/31/19 18:00 07/31/19 18:47 Protonix PO 40 mg QDAY RHEA Administration Sodium Chloride 10 ml 07/31/19 22:00 07/31/19 22:11 Sodium Chloride Flush Syringe 10 Ml IV Not Given BID RHEA Sodium Chloride 10 ml 07/31/19 17:46 Sodium Chloride Flush Syringe 10 Ml IV PRN PRN LINE FLUSH
[2019-08-01] MEDS ORDERED: hydrALAZINE 20 MG/1 ML INJ IV PRN (07:45)
[2019-08-01] MEDS: carvediloL 25 MG TAB PO SCH ×2 (09:31→21:43)
[2019-08-01] MEDS: MULTIVITAMINS,THER W-MINERALS TAB PO SCH (09:31)
[2019-08-01] MEDS: NIFEdipine XL 30 MG TAB PO SCH ×2 (09:32→21:43)
[2019-08-01] MEDS: ASPIRIN 81 MG TAB CHEW PO SCH (09:32)
[2019-08-01] MEDS: PANTOPRAZOLE 40 MG TAB PO SCH (09:32)
[2019-08-01] MEDS: FAMOTIDINE 10 MG TAB PO SCH ×2 (09:32→21:43)
[2019-08-01] MEDS: INSULIN GLARGINE 100 UNITS/ML SUB-Q SCH ×2 (10:29→21:45)
[2019-08-01] MEDS ORDERED: SODIUM CHLORIDE 0.9% 100 ML IV PRN (11:06)
--- NOTE | 2019-08-01 12:56 | Progress Note ---
Assessment and Plan 1. ESRD: Patient was on maintenance hemodialysis three times a week, MWF schedule. Last outpatient HD 07/20/19. Hemodialysis: 07/30, 07/31. 2. FEN: Volume overload, UF with HD as tolerated. Hyperkalemia, improved, HD today, monitor. Monitor lytes. 3. Anemia, POA: Likely secondary to ESRD. Epogen as needed. 4. Hypertension: Continue home meds. Monitor BP. 5. Ascites: Cause unclear. Therapeutic and diagnostic paracentesis ordered. 6. DM. 7. Medical non-compliance. Patient need outpatient HD chair. - Subjective: Patient was seen and examined at the bedside. C/o abdominal distention. Had paracentesis last month. Pt is not sure about the cause of Ascites. - General Appearance Staff present at the bedside General appearance: well-developed, well-nourished, appears stated age, no distress EENT: ATNC, PERRL, mucous membranes moist, hearing intact, vision intact Neck: neck supple, trachea midline Respiratory: Clear to Ascultation Heart: regular, S1S2, no murmurs Gastrointestinal: normoactive bowel sounds, distended, ascites noted, not tender Integumentary: no rash, warm and dry Neurologic: no focal deficit, no asterixis, alert and oriented x3 Ext: 1+ LE edema noted Hemodialysis access: L arm AVF Subjective Date of service: 08/01/19 Objective - Vital Signs Vital signs: Vital Signs - 12hr 08/01/19 08/01/19 08/01/19 01:29 05:10 07:46 Temperature 98.1 F Pulse Rate 81 Respiratory 18 22 Rate Blood Pressure Blood Pressure 182/92 [Left] O2 Sat by Pulse 98 93 Oximetry 08/01/19 07:54 Temperature 99.5 F Pulse Rate 84 Respiratory 20 Rate Blood Pressure 145/71 Blood Pressure [Left] O2 Sat by Pulse 94 Oximetry - Lab 07/31/19 12:31 08/01/19 04:02 Most recent lab results Calcium 9.1 mg/dL (8.4-10.2) 08/01/19 04:02 Medications & Allergies - Medications Allergies/Adverse Reactions: Allergies No Known Allergies Allergy (Verified 07/31/19 11:39) Home Medications: Home Medications Medication Instructions Recorded Confirmed Last Taken Type Aspirin [Aspirin BABY CHEW TAB] 81 mg PO QDAY 07/25/19 07/31/19 Unknown History Insulin Glargine [Lantus VIAL] 3 units SUB-Q QAM 07/25/19 07/31/19 Unknown History Insulin Glargine [Lantus VIAL] 6 units SUB-Q QHS 07/25/19 07/31/19 Unknown History NIFEdipine [Nifedipine ER] 30 mg PO BID 07/25/19 07/31/19 Unknown History Pantoprazole [Protonix TAB] 40 mg PO QDAY 07/25/19 07/31/19 Unknown History Vitamin B Complex 1 each PO DAILY 07/25/19 07/31/19 Unknown History carvediloL [Coreg] 25 mg PO BID 07/25/19 07/31/19 Unknown History Calcium Acetate [Phoslo] 2,001 mg PO TID 07/26/19 07/31/19 2 Days Ago History ~07/24/19 Lispro Insulin [HumaLOG] 2 unit SQ QAC 07/26/19 07/31/19 Unknown History Active Medications: Generic Name Dose Route Start Last Admin Trade Name Freq PRN Reason Stop Dose Admin Acetaminophen 650 mg 07/31/19 17:46 Tylenol PO Q4H PRN Pain MILD(1-3)/Fever >100.5/MALIK Aspirin 81 mg 07/31/19 18:00 08/01/19 09:32 Baby Aspirin PO 81 mg QDAY RHEA Administration Calcium Acetate 2,001 mg 08/01/19 12:00 08/01/19 11:37 Phoslo PO 2,001 mg TIDWM RHEA Administration Carvedilol 25 mg 07/31/19 22:00 08/01/19 09:31 Coreg PO 25 mg BID RHEA Administration Famotidine 10 mg 07/31/19 22:00 08/01/19 09:32 Pepcid PO 10 mg BID RHEA Administration Hydralazine HCl 10 mg 08/01/19 07:45 Apresoline IV Q4HR PRN Blood Pressure Hydromorphone HCl 0.5 mg 07/31/19 17:46 Dilaudid IV Q3H PRN Pain , Severe (7-10) Sodium Chloride 100 mls @ 999 mls/hr 08/01/19 11:06 Nacl 0.9% IV AUDREY PRN Hypotension Insulin Glargine 6 units 08/01/19 22:00 Lantus SUB-Q QHS RHEA Insulin Glargine 3 units 08/01/19 10:30 08/01/19 10:29 Lantus SUB-Q Not Given QAM [facility] Insulin Human Lispro 0 unit 07/31/19 22:00 08/01/19 12:20 Humalog SUB-Q 3 unit ACHS RHEA Administration Protocol Multivitamins/Minerals 1 each 08/01/19 10:00 08/01/19 09:31 Theragran-M Tab PO 1 each QDAY RHEA Administration Nifedipine 30 mg 07/31/19 22:00 08/01/19 09:32 Procardia Xl PO 30 mg BID RHEA Administration Ondansetron HCl 4 mg 07/31/19 17:46 Zofran IV Q8H PRN Nausea And Vomiting Oxycodone/Acetaminophen 1 tab 07/31/19 17:46 Percocet 5/325 PO Q6H PRN Pain, Moderate (4-6) Pantoprazole Sodium 40 mg 07/31/19 18:00 08/01/19 09:32 Protonix PO 40 mg QDAY RHEA Administration Sodium Chloride 10 ml 07/31/19 22:00 08/01/19 09:15 Sodium Chloride Flush Syringe 10 Ml IV Not Given BID RHEA Sodium Chloride 10 ml 07/31/19 17:46 Sodium Chloride Flush Syringe 10 Ml IV PRN PRN LINE FLUSH
[2019-08-01 16:10] LABS: INR 1.41 (0.87-1.13)
[2019-08-01] MEDS ORDERED: SODIUM CHLORIDE*PRIMING MACHINE ONLY FOR DIALYSIS MC ONE (18:09)
[2019-08-02] MEDS: INSULIN LISPRO 100 UNIT/ML SUB-Q SCH ×4 (08:35→22:32)
[2019-08-02] MEDS: CALCIUM ACETATE 667 MG CAP PO SCH ×3 (08:53→16:58)
--- NOTE | 2019-08-02 09:52 | Progress Note ---
Assessment and Plan 1. ESRD: Patient was on maintenance hemodialysis three times a week, MWF schedule. Last outpatient HD 07/20/19. Hemodialysis: 07/30, 07/31. 2. FEN: Volume overload, UF with HD as tolerated. Hyperkalemia, improved, monitor. Monitor lytes. 3. Anemia, POA: Likely secondary to ESRD. Epogen as needed. 4. Hypertension: Continue home meds. Monitor BP. 5. Ascites: Cause unclear. S/p Therapeutic and diagnostic paracentesis 08/01. 6. DM. 7. Medical non-compliance. Await outpatient HD chair. - Subjective: Patient was seen and examined at the bedside. Doing ok. - General Appearance General appearance: well-developed, well-nourished, appears stated age, no distress EENT: ATNC, PERRL, mucous membranes moist, hearing intact, vision intact Neck: neck supple, trachea midline Respiratory: Clear to Ascultation Heart: regular, S1S2, no murmurs Gastrointestinal: normoactive bowel sounds, distended, ascites noted, not tender Integumentary: no rash, warm and dry Neurologic: no focal deficit, no asterixis, alert and oriented x3 Ext: 1+ LE edema noted Hemodialysis access: L arm AVF Subjective Date of service: 08/02/19 Objective - Vital Signs Vital signs: Vital Signs - 12hr 08/01/19 08/01/19 08/02/19 21:55 23:59 05:29 Temperature 99.0 F 99.3 F Pulse Rate 81 84 Respiratory 18 18 Rate Blood Pressure 160/84 162/80 O2 Sat by Pulse 97 93 95 Oximetry 08/02/19 07:54 Temperature 98.8 F Pulse Rate 80 Respiratory 22 Rate Blood Pressure 148/72 O2 Sat by Pulse 96 Oximetry - Lab 07/31/19 12:31 08/01/19 04:02 Most recent lab results Calcium 9.1 mg/dL (8.4-10.2) 08/01/19 04:02 Medications & Allergies - Medications Allergies/Adverse Reactions: Allergies No Known Allergies Allergy (Verified 07/31/19 11:39) Home Medications: Home Medications Medication Instructions Recorded Confirmed Last Taken Type Aspirin [Aspirin BABY CHEW TAB] 81 mg PO QDAY 07/25/19 07/31/19 Unknown History Insulin Glargine [Lantus VIAL] 3 units SUB-Q QAM 07/25/19 07/31/19 Unknown History Insulin Glargine [Lantus VIAL] 6 units SUB-Q QHS 07/25/19 07/31/19 Unknown History NIFEdipine [Nifedipine ER] 30 mg PO BID 07/25/19 07/31/19 Unknown History Pantoprazole [Protonix TAB] 40 mg PO QDAY 07/25/19 07/31/19 Unknown History Vitamin B Complex 1 each PO DAILY 07/25/19 07/31/19 Unknown History carvediloL [Coreg] 25 mg PO BID 07/25/19 07/31/19 Unknown History Calcium Acetate [Phoslo] 2,001 mg PO TID 07/26/19 07/31/19 2 Days Ago History ~07/24/19 Lispro Insulin [HumaLOG] 2 unit SQ QAC 07/26/19 07/31/19 Unknown History Active Medications: Generic Name Dose Route Start Last Admin Trade Name Freq PRN Reason Stop Dose Admin Acetaminophen 650 mg 07/31/19 17:46 Tylenol PO Q4H PRN Pain MILD(1-3)/Fever >100.5/MALIK Aspirin 81 mg 07/31/19 18:00 08/01/19 09:32 Baby Aspirin PO 81 mg QDAY RHEA Administration Calcium Acetate 2,001 mg 08/01/19 12:00 08/02/19 08:53 Phoslo PO Not Given TIDWM [facility] Carvedilol 25 mg 07/31/19 22:00 08/01/19 21:43 Coreg PO 25 mg BID RHEA Administration Famotidine 10 mg 07/31/19 22:00 08/01/19 21:43 Pepcid PO 10 mg BID RHEA Administration Hydralazine HCl 10 mg 08/01/19 07:45 Apresoline IV Q4HR PRN Blood Pressure Hydromorphone HCl 0.5 mg 07/31/19 17:46 Dilaudid IV Q3H PRN Pain , Severe (7-10) Sodium Chloride 100 mls @ 999 mls/hr 08/01/19 11:06 Nacl 0.9% IV AUDREY PRN Hypotension Insulin Glargine 6 units 08/01/19 22:00 08/01/19 21:45 Lantus SUB-Q Not Given QHS [facility] Insulin Glargine 3 units 08/01/19 10:30 08/01/19 10:29 Lantus SUB-Q Not Given QAM [facility] Insulin Human Lispro 0 unit 07/31/19 22:00 08/02/19 08:35 Humalog SUB-Q Not Given ACHS [facility] Protocol Multivitamins/Minerals 1 each 08/01/19 10:00 08/01/19 09:31 Theragran-M Tab PO 1 each QDAY RHEA Administration Nifedipine 30 mg 07/31/19 22:00 08/01/19 21:43 Procardia Xl PO 30 mg BID RHEA Administration Ondansetron HCl 4 mg 07/31/19 17:46 Zofran IV Q8H PRN Nausea And Vomiting Oxycodone/Acetaminophen 1 tab 07/31/19 17:46 Percocet 5/325 PO Q6H PRN Pain, Moderate (4-6) Pantoprazole Sodium 40 mg 07/31/19 18:00 08/01/19 09:32 Protonix PO 40 mg QDAY RHEA Administration Sodium Chloride 10 ml 07/31/19 22:00 08/01/19 21:55 Sodium Chloride Flush Syringe 10 Ml IV Not Given BID RHEA Sodium Chloride 10 ml 07/31/19 17:46 Sodium Chloride Flush Syringe 10 Ml IV PRN PRN LINE FLUSH
--- NOTE | 2019-08-02 10:14 | Ultrasound Report ---
Ultrasound-guided paracentesis HISTORY: Ascites.. PROCEDURE: The risks (including but not limited to bleeding, infection, and bowel injury) and benefi ts were explained to the patient and informed consent was obtained. A time out procedure was perform ed. Ultrasound was used to evaluate the abdomen and locate the largest ascites fluid pocket. Once the sk in was marked, the procedure site was prepped and draped in the usual sterile fashion and lidocaine w as used for local anesthesia. A skin oleg was made and a 6-[place] paracentesis catheter was placed. The patient was monitored closely throughout the procedure, and a total of 3800 mL of straw-colored fluid was aspirated. Samples were sent to the lab for further evaluation per the primary clinicians orders. The patient tolerated the procedure well with no complications. IMPRESSION: Successful paracentesis as above with a total of 3800 mL of straw-colored fluid aspirated . Signer Name: Trenton Garcia MD Signed: 08/02/2019 10:10 AM Workstation Name: [id number]
[2019-08-02] MEDS: INSULIN GLARGINE 100 UNITS/ML SUB-Q SCH ×2 (10:50→22:33)
[2019-08-02] MEDS ORDERED: ALBUMIN HUMAN 25% (25 GM/100 ML) INJ IV PRN (11:10)
--- NOTE | 2019-08-02 11:10 | Procedure Note ---
Date of procedure: 08/02/19 Pre-op diagnosis: Ascites Post-op diagnosis: same Procedure: US-guided paracentesis. Findings: See radiology report from PACS. Anesthesia: local Surgeon: BRANDON VEGA Estimated blood loss: none Pathology: list Specimen disposition: to lab Condition: stable Disposition: floor
[2019-08-02 12:21] LABS: Monocytes Body Fluid 3.8 %; Total Cells Counted 53 /mm3
[2019-08-02] MEDS: ASPIRIN 81 MG TAB CHEW PO SCH (12:23)
[2019-08-02] MEDS: NIFEdipine XL 30 MG TAB PO SCH ×2 (12:23→22:33)
[2019-08-02] MEDS: PANTOPRAZOLE 40 MG TAB PO SCH (12:23)
[2019-08-02] MEDS: carvediloL 25 MG TAB PO SCH ×2 (12:23→22:34)
[2019-08-02] MEDS: FAMOTIDINE 10 MG TAB PO SCH ×2 (12:24→22:33)
[2019-08-02] MEDS: MULTIVITAMINS,THER W-MINERALS TAB PO SCH (12:24)
--- NOTE | 2019-08-02 16:08 | Progress Note ---
Assessment and Plan Assessment and plan: Patient is a 33 yo woman with a history of IDDM type 1, hypertension, tobacco dependency and ESRD on hemodialysis with a Hemodialysis center due to severe non-adherence to attending dialysis sessions who presents to [facility] ED with SOB due to missed hemodialysis. This is patient's third time here since 07/25/2019, each time she left AMA. She had HD on 07/31/2019 and again on 08/01/19. She recently moved here from [facility] and did not set up HD. 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 Ascites: consult GI, she had paracentesis and work up at [facility], she report 5 liters removed about 1 month ago Disposition: try to obtain outpatient hemodialysis center, back on 07/25/19, [facility] was looking at her because she is from [facility], but they wanted a COVID-19 test first. Irvin Johnson [facility] family practice medical doctor declined chair due to non-compliance on 07/31/2019 08/02/19: COBID-19 negative, s/p 3.8 liters of ascites removed today, she feels much better. Await HD setup. History Interval history: Patient was seen and examined. Follow-up on current diagnosis ESRD. Overnight uneventful as no events directly reported to me. Patient denies any chest pain, shortness breath, nausea/vomiting or severe headaches. Imaging, nursing note, chart, labs and old chart reviewed. Discussed with patient. Hospitalist Physical - Physical exam Narrative exam: Gen: WDWN, NAD, Awake, Alert, Orientated HEENT: NCAT, EOMI, PERRL, OP Clear Neck: supple, no adenopathy, no thyromegaly, no JVD CVS/Heart: RRR, normal S1S2, pulses present bilaterally Chest/Lungs: CTA B, Symmetrical chest expansion, good air entry bilaterally GI/Abdomen: soft, distended, good bowel sounds, no guarding or rebound /Bladder: no suprapubic tenderness, no CVA or paraspinal tenderness Extermity/Skin: no obvious rash MSK: FROM x 4 Neuro: CN 2-12 grossly intact, no new focal deficits Psych: calm - Constitutional Vitals: Temp Pulse Resp BP Pulse Ox 98.6 F 78 20 142/71 97 08/02/19 11:19 08/02/19 12:23 08/02/19 11:19 08/02/19 12:23 08/02/19 11:19 General appearance: Present: no acute distress, well-nourished Results - Labs CBC & Chem 7: 07/31/19 12:31 08/01/19 04:02 Labs: Laboratory Last Values WBC 4.6 K/mm3 (4.5-11.0) 07/31/19 12:31 RBC 3.13 M/mm3 (3.65-5.03) L 07/31/19 12:31 Hgb 9.6 gm/dl (10.1-14.3) L 07/31/19 12:31 Hct 29.1 % (30.3-42.9) L 07/31/19 12:31 MCV 93 fl (79-97) 07/31/19 12:31 MCH 31 pg (28-32) 07/31/19 12:31 MCHC 33 % (30-34) 07/31/19 12:31 RDW 18.1 % (13.2-15.2) H 07/31/19 12:31 Plt Count 106 K/mm3 (140-440) L 07/31/19 12:31 Lymph % (Auto) 18.5 % (13.4-35.0) 07/31/19 12:31 [place] % (Auto) 4.8 % (0.0-7.3) 07/31/19 12:31 Eos % (Auto) 4.1 % (0.0-4.3) 07/31/19 12:31 Baso % (Auto) 0.9 % (0.0-1.8) 07/31/19 12:31 Lymph # 0.9 K/mm3 (1.2-5.4) L 07/31/19 12:31 [place] # 0.2 K/mm3 (0.0-0.8) 07/31/19 12:31 Eos # 0.2 K/mm3 (0.0-0.4) 07/31/19 12:31 Baso # 0.0 K/mm3 (0.0-0.1) 07/31/19 12:31 Seg Neutrophils % 71.7 % (40.0-70.0) H 07/31/19 12:31 Seg Neutrophils # 3.3 K/mm3 (1.8-7.7) 07/31/19 12:31 PT 17.5 Sec. (12.2-14.9) H 08/01/19 15:41 INR 1.41 (0.87-1.13) H 08/01/19 15:41 Sodium 141 mmol/L (137-145) 08/01/19 04:02 Potassium 4.7 mmol/L (3.6-5.0) 08/01/19 04:02 Chloride 99.8 mmol/L (98-107) 08/01/19 04:02 Carbon Dioxide 24 mmol/L (22-30) 08/01/19 04:02 Anion Gap 22 mmol/L 08/01/19 04:02 BUN 47 mg/dL (7-17) H 08/01/19 04:02 Creatinine 6.9 mg/dL (0.7-1.2) H 08/01/19 04:02 Estimated GFR 8 ml/min 08/01/19 04:02 BUN/Creatinine Ratio 7 % 08/01/19 04:02 Glucose 155 mg/dL (65-100) H 08/01/19 04:02 POC Glucose 254 (70-105) H 08/02/19 11:31 Calcium 9.1 mg/dL (8.4-10.2) 08/01/19 04:02 HCG, Qual Negative (Negative) 07/31/19 12:31 Fluid Type Ascitic 08/01/19 Unknown Fluid Color Yellow 08/01/19 Unknown Fluid Appearance Clear 08/01/19 Unknown Fluid WBC 3 /mm3 08/01/19 Unknown Fluid RBC 426 /mm3 08/01/19 Unknown Fluid Seg Neutrophils 1.9 % 08/01/19 Unknown Fluid Lymphocytes 81.1 % 08/01/19 Unknown Fluid Reactive Lymphs 3.8 % 08/01/19 Unknown Fluid Monocytes 3.8 % 08/01/19 Unknown Fluid Eosinophils 9.4 % 08/01/19 Unknown Fluid Basophils Not Reportable 08/01/19 Unknown Coronavirus (PCR) Negative (Negative) 08/01/19 11:30 Lozano/IV: Voiding Method Toilet Active Medications - Current Medications Current Medications: Generic Name Dose Route Start Last Admin Trade Name Freq PRN Reason Stop Dose Admin Acetaminophen 650 mg 07/31/19 17:46 Tylenol PO Q4H PRN Pain MILD(1-3)/Fever >100.5/MALIK Albumin Human 25 gm 08/02/19 11:10 Alburx 25% (Albumin) IV ONCE PRN if > 5 liters of fluid removed Aspirin 81 mg 07/31/19 18:00 08/02/19 12:23 Baby Aspirin PO 81 mg QDAY RHEA Administration Calcium Acetate 2,001 mg 08/01/19 12:00 08/02/19 12:23 Phoslo PO 2,001 mg TIDWM RHEA Administration Carvedilol 25 mg 07/31/19 22:00 08/02/19 12:23 Coreg PO 25 mg BID RHEA Administration Famotidine 10 mg 07/31/19 22:00 08/02/19 12:24 Pepcid PO 10 mg BID RHEA Administration Hydralazine HCl 10 mg 08/01/19 07:45 Apresoline IV Q4HR PRN Blood Pressure Hydromorphone HCl 0.5 mg 07/31/19 17:46 Dilaudid IV Q3H PRN Pain , Severe (7-10) Sodium Chloride 100 mls @ 999 mls/hr 08/01/19 11:06 Nacl 0.9% IV AUDREY PRN Hypotension Insulin Glargine 6 units 08/01/19 22:00 08/01/19 21:45 Lantus SUB-Q Not Given QHS [facility] Insulin Glargine 3 units 08/01/19 10:30 08/02/19 10:50 Lantus SUB-Q Not Given QAM [facility] Insulin Human Lispro 0 unit 07/31/19 22:00 08/02/19 12:34 Humalog SUB-Q 4 unit ACHS [facility] Administration Protocol Multivitamins/Minerals 1 each 08/01/19 10:00 08/02/19 12:24 Theragran-M Tab PO 1 each QDAY RHEA Administration Nifedipine 30 mg 07/31/19 22:00 08/02/19 12:23 Procardia Xl PO 30 mg BID RHEA Administration Ondansetron HCl 4 mg 07/31/19 17:46 Zofran IV Q8H PRN Nausea And Vomiting Oxycodone/Acetaminophen 1 tab 07/31/19 17:46 Percocet 5/325 PO Q6H PRN Pain, Moderate (4-6) Pantoprazole Sodium 40 mg 07/31/19 18:00 08/02/19 12:23 Protonix PO 40 mg QDAY RHEA Administration Sodium Chloride 10 ml 07/31/19 22:00 08/02/19 12:24 Sodium Chloride Flush Syringe 10 Ml IV Not Given BID RHEA Sodium Chloride 10 ml 07/31/19 17:46 Sodium Chloride Flush Syringe 10 Ml IV PRN PRN LINE FLUSH
[2019-08-02] MEDS ORDERED: EPOETIN ALFA 10,000 UNIT/1 ML INJ SUB-Q PRN (23:04)
[2019-08-03] MEDS: CALCIUM ACETATE 667 MG CAP PO SCH ×3 (08:48→17:32)
--- NOTE | 2019-08-03 08:48 | Progress Note ---
Assessment and Plan 1. ESRD: Patient was on maintenance hemodialysis three times a week, MWF schedule. Last outpatient HD 07/20/19. Awaiting outpatient HD chair for d/c. Hemodialysis: 07/30, 07/31, 08/02. 2. FEN: No new labs to review at time of exam. Will monitor for any new lab results. HD planned today. Volume overload, UF with HD as tolerated. Hyperkalemia, improved, monitor. Monitor lytes. 3. Anemia, POA: Likely secondary to ESRD. Epogen as needed. 4. Hypertension: Continue home meds. BP is controlled at time of exam. Monitor BP. 5. Ascites: Cause unclear. S/p Therapeutic and diagnostic paracentesis 08/01. 6. DM. 7. Medical non-compliance. Await outpatient HD chair. Subjective Date of service: 08/03/19 Interval history: Patient was seen and examined at the bedside in the HD unit. She still complained of bloating s/p paracentesis. No acute events reported overnight. Pt to d/c after HD. Objective - Exam Narrative Exam: General appearance: well-developed, well-nourished, appears stated age, no distress EENT: ATNC, PERRL, mucous membranes moist, hearing intact, vision intact Neck: neck supple, trachea midline Respiratory: Clear to Auscultation Heart: regular, S1S2, no murmurs Gastrointestinal: normoactive bowel sounds, distended, ascites noted, not tender Integumentary: no rash, warm and dry Neurologic: no focal deficit, no asterixis, alert and oriented x3 Ext: 1+ LE edema noted Hemodialysis access: L arm AVF - Vital Signs Vital signs: Vital Signs - 12hr 08/02/19 08/03/19 08/03/19 23:30 01:58 04:52 Temperature 98.5 F 98.5 F Pulse Rate 82 86 Respiratory 18 18 Rate Blood Pressure 167/84 165/82 O2 Sat by Pulse 94 96 96 Oximetry 08/03/19 07:58 Temperature 98.1 F Pulse Rate 84 Respiratory 18 Rate Blood Pressure 132/70 O2 Sat by Pulse 93 Oximetry - Lab 07/31/19 12:31 08/01/19 04:02 Most recent lab results Calcium 9.1 mg/dL (8.4-10.2) 08/01/19 04:02 Medications & Allergies - Medications Allergies/Adverse Reactions: Allergies No Known Allergies Allergy (Verified 07/31/19 11:39) Home Medications: Home Medications Medication Instructions Recorded Confirmed Last Taken Type Aspirin [Aspirin BABY CHEW TAB] 81 mg PO QDAY 07/25/19 07/31/19 Unknown History Insulin Glargine [Lantus VIAL] 3 units SUB-Q QAM 07/25/19 07/31/19 Unknown History Insulin Glargine [Lantus VIAL] 6 units SUB-Q QHS 07/25/19 07/31/19 Unknown History NIFEdipine [Nifedipine ER] 30 mg PO BID 07/25/19 07/31/19 Unknown History Pantoprazole [Protonix TAB] 40 mg PO QDAY 07/25/19 07/31/19 Unknown History Vitamin B Complex 1 each PO DAILY 07/25/19 07/31/19 Unknown History carvediloL [Coreg] 25 mg PO BID 07/25/19 07/31/19 Unknown History Calcium Acetate [Phoslo] 2,001 mg PO TID 07/26/19 07/31/19 2 Days Ago History ~07/24/19 Lispro Insulin [HumaLOG] 2 unit SQ QAC 07/26/19 07/31/19 Unknown History Active Medications: Generic Name Dose Route Start Last Admin Trade Name Freq PRN Reason Stop Dose Admin Acetaminophen 650 mg 07/31/19 17:46 Tylenol PO Q4H PRN Pain MILD(1-3)/Fever >100.5/MALIK Albumin Human 25 gm 08/02/19 11:10 Alburx 25% (Albumin) IV ONCE PRN if > 5 liters of fluid removed Aspirin 81 mg 07/31/19 18:00 08/02/19 12:23 Baby Aspirin PO 81 mg QDAY RHEA Administration Calcium Acetate 2,001 mg 08/01/19 12:00 08/02/19 16:58 Phoslo PO 2,001 mg TIDWM RHEA Administration Carvedilol 25 mg 07/31/19 22:00 08/02/19 22:34 Coreg PO 25 mg BID RHEA Administration Epoetin Evans 10,000 unit 08/02/19 23:04 Procrit SUB-Q AUDREY PRN hemodialysis Famotidine 10 mg 07/31/19 22:00 08/02/19 22:33 Pepcid PO 10 mg BID RHEA Administration Hydralazine HCl 10 mg 08/01/19 07:45 Apresoline IV Q4HR PRN Blood Pressure Hydromorphone HCl 0.5 mg 07/31/19 17:46 Dilaudid IV Q3H PRN Pain , Severe (7-10) Sodium Chloride 100 mls @ 999 mls/hr 08/01/19 11:06 Nacl 0.9% IV AUDREY PRN Hypotension Insulin Glargine 6 units 08/01/19 22:00 08/02/19 22:33 Lantus SUB-Q 6 units QHS RHEA Administration Insulin Glargine 3 units 08/01/19 10:30 08/02/19 10:50 Lantus SUB-Q Not Given QAM [facility] Insulin Human Lispro 0 unit 07/31/19 22:00 08/02/19 22:32 Humalog SUB-Q Not Given ACHS [facility] Protocol Multivitamins/Minerals 1 each 08/01/19 10:00 08/02/19 12:24 Theragran-M Tab PO 1 each QDAY RHEA Administration Nifedipine 30 mg 07/31/19 22:00 08/02/19 22:33 Procardia Xl PO 30 mg BID RHEA Administration Ondansetron HCl 4 mg 07/31/19 17:46 Zofran IV Q8H PRN Nausea And Vomiting Oxycodone/Acetaminophen 1 tab 07/31/19 17:46 Percocet 5/325 PO Q6H PRN Pain, Moderate (4-6) Pantoprazole Sodium 40 mg 07/31/19 18:00 08/02/19 12:23 Protonix PO 40 mg QDAY RHEA Administration Sodium Chloride 10 ml 07/31/19 22:00 08/02/19 22:34 Sodium Chloride Flush Syringe 10 Ml IV 10 ml BID RHEA Administration Sodium Chloride 10 ml 07/31/19 17:46 Sodium Chloride Flush Syringe 10 Ml IV PRN PRN LINE FLUSH
[2019-08-03] MEDS: INSULIN LISPRO 100 UNIT/ML SUB-Q SCH ×3 (08:49→17:30)
[2019-08-03] MEDS: FAMOTIDINE 10 MG TAB PO SCH (09:03)
[2019-08-03] MEDS: PANTOPRAZOLE 40 MG TAB PO SCH (09:03)
[2019-08-03] MEDS: ASPIRIN 81 MG TAB CHEW PO SCH (09:03)
[2019-08-03] MEDS: MULTIVITAMINS,THER W-MINERALS TAB PO SCH (09:03)
[2019-08-03] MEDS: INSULIN GLARGINE 100 UNITS/ML SUB-Q SCH (09:03)
--- NOTE | 2019-08-03 09:24 | Progress Note ---
Assessment and Plan Assessment and plan: Patient is a 33 yo woman with a history of IDDM type 1, hypertension, tobacco dependency and ESRD on hemodialysis with a Hemodialysis center due to severe non-adherence to attending dialysis sessions who presents to [facility] ED with SOB due to missed hemodialysis. This is patient's third time here since 07/25/2019, each time she left AMA. She had HD on 07/31/2019 and again on 08/01/19. She recently moved here from [facility] and did not set up HD. ESRD: needing hemodialysis, Nephrology consulted Accelerated hypertension: HD should help IDDM type 1; add ssi, accuchecks Tobacco dependency: deputy county counsel on stopping Non-compliance: deputy county counsel on stopping. Ascites: consult GI, she had paracentesis and work up at [facility], she report 5 liters removed about 1 month ago Disposition: try to obtain outpatient hemodialysis center, back on 07/25/19, [facility] [place] looking [place] her because she is from [facility], but they wanted a COVID-19 test first. Irvin Johnson [facility] dental assistant medical assistant declined chair due to non-compliance on 07/31/2019 08/02/19: COBID-19 negative, s/p 3.8 liters of ascites removed today, she feels much better. Await HD setup. 08/03/19: Medical stable for discharge, pt and I have a repertoire ([place] ties); therefore, she is cooperating and agrees to go to HD as instructed History Interval history: Patient was seen and examined. Follow-up on current diagnosis ESRD. Overnight uneventful as no events directly reported to me. Patient denies any chest pain, shortness breath, nausea/vomiting or severe headaches. Imaging, nursing note, chart, labs and old chart reviewed. Discussed with patient. Hospitalist Physical - Physical exam Narrative exam: Gen: WDWN, NAD, Awake, Alert, Orientated HEENT: NCAT, EOMI, PERRL, OP Clear Neck: supple, no adenopathy, no thyromegaly, no JVD CVS/Heart: RRR, normal S1S2, pulses present bilaterally Chest/Lungs: CTA B, Symmetrical chest expansion, good air entry bilaterally GI/Abdomen: soft, distended, good bowel sounds, no guarding or rebound /Bladder: no suprapubic tenderness, no CVA or paraspinal tenderness Extermity/Skin: no obvious rash MSK: FROM x 4 Neuro: CN 2-12 grossly intact, no new focal deficits Psych: calm - Constitutional Vitals: Temp Pulse Resp BP Pulse Ox 98.1 F 84 18 132/70 93 08/03/19 07:58 08/03/19 07:58 08/03/19 07:58 08/03/19 07:58 08/03/19 07:58 General appearance: Present: no acute distress, well-nourished Results - Labs CBC & Chem 7: 07/31/19 12:31 08/01/19 04:02 Labs: Laboratory Last Values WBC 4.6 K/mm3 (4.5-11.0) 07/31/19 12:31 RBC 3.13 M/mm3 (3.65-5.03) L 07/31/19 12:31 Hgb 9.6 gm/dl (10.1-14.3) L 07/31/19 12:31 Hct 29.1 % (30.3-42.9) L 07/31/19 12:31 MCV 93 fl (79-97) 07/31/19 12:31 MCH 31 pg (28-32) 07/31/19 12:31 MCHC 33 % (30-34) 07/31/19 12:31 RDW 18.1 % (13.2-15.2) H 07/31/19 12:31 Plt Count 106 K/mm3 (140-440) L 07/31/19 12:31 Lymph % (Auto) 18.5 % (13.4-35.0) 07/31/19 12:31 [place] % (Auto) 4.8 % (0.0-7.3) 07/31/19 12:31 Eos % (Auto) 4.1 % (0.0-4.3) 07/31/19 12:31 Baso % (Auto) 0.9 % (0.0-1.8) 07/31/19 12:31 Lymph # 0.9 K/mm3 (1.2-5.4) L 07/31/19 12:31 [place] # 0.2 K/mm3 (0.0-0.8) 07/31/19 12:31 Eos # 0.2 K/mm3 (0.0-0.4) 07/31/19 12:31 Baso # 0.0 K/mm3 (0.0-0.1) 07/31/19 12:31 Seg Neutrophils % 71.7 % (40.0-70.0) H 07/31/19 12:31 Seg Neutrophils # 3.3 K/mm3 (1.8-7.7) 07/31/19 12:31 PT 17.5 Sec. (12.2-14.9) H 08/01/19 15:41 INR 1.41 (0.87-1.13) H 08/01/19 15:41 Sodium 141 mmol/L (137-145) 08/01/19 04:02 Potassium 4.7 mmol/L (3.6-5.0) 08/01/19 04:02 Chloride 99.8 mmol/L (98-107) 08/01/19 04:02 Carbon Dioxide 24 mmol/L (22-30) 08/01/19 04:02 Anion Gap 22 mmol/L 08/01/19 04:02 BUN 47 mg/dL (7-17) H 08/01/19 04:02 Creatinine 6.9 mg/dL (0.7-1.2) H 08/01/19 04:02 Estimated GFR 8 ml/min 08/01/19 04:02 BUN/Creatinine Ratio 7 % 08/01/19 04:02 Glucose 155 mg/dL (65-100) H 08/01/19 04:02 POC Glucose 239 (70-105) H 08/03/19 08:59 Calcium 9.1 mg/dL (8.4-10.2) 08/01/19 04:02 HCG, Qual Negative (Negative) 07/31/19 12:31 Fluid Type Ascitic 08/01/19 Unknown Fluid Color Yellow 08/01/19 Unknown Fluid Appearance Clear 08/01/19 Unknown Fluid WBC 3 /mm3 08/01/19 Unknown Fluid RBC 426 /mm3 08/01/19 Unknown Fluid Seg Neutrophils 1.9 % 08/01/19 Unknown Fluid Lymphocytes 81.1 % 08/01/19 Unknown Fluid Reactive Lymphs 3.8 % 08/01/19 Unknown Fluid Monocytes 3.8 % 08/01/19 Unknown Fluid Eosinophils 9.4 % 08/01/19 Unknown Fluid Basophils Not Reportable 08/01/19 Unknown Coronavirus (PCR) Negative (Negative) 08/01/19 11:30 Lozano/IV: Voiding Method Toilet Active Medications - Current Medications Current Medications: Generic Name Dose Route Start Last Admin Trade Name Freq PRN Reason Stop Dose Admin Acetaminophen 650 mg 07/31/19 17:46 Tylenol PO Q4H PRN Pain MILD(1-3)/Fever >100.5/MALIK Albumin Human 25 gm 08/02/19 11:10 Alburx 25% (Albumin) IV ONCE PRN if > 5 liters of fluid removed Aspirin 81 mg 07/31/19 18:00 08/03/19 09:03 Baby Aspirin PO 81 mg QDAY RHEA Administration Calcium Acetate 2,001 mg 08/01/19 12:00 08/03/19 08:48 Phoslo PO 2,001 mg TIDWM RHEA Administration Carvedilol 25 mg 07/31/19 22:00 08/02/19 22:34 Coreg PO 25 mg BID RHEA Administration Epoetin Evans 10,000 unit 08/02/19 23:04 Procrit SUB-Q AUDREY PRN hemodialysis Famotidine 10 mg 07/31/19 22:00 08/03/19 09:03 Pepcid PO 10 mg BID RHEA Administration Hydralazine HCl 10 mg 08/01/19 07:45 Apresoline IV Q4HR PRN Blood Pressure Hydromorphone HCl 0.5 mg 07/31/19 17:46 Dilaudid IV Q3H PRN Pain , Severe (7-10) Sodium Chloride 100 mls @ 999 mls/hr 08/01/19 11:06 Nacl 0.9% IV AUDREY PRN Hypotension Insulin Glargine 6 units 08/01/19 22:00 08/02/19 22:33 Lantus SUB-Q 6 units QHS RHEA Administration Insulin Glargine 3 units 08/01/19 10:30 08/03/19 09:03 Lantus SUB-Q 3 units QAM RHEA Administration Insulin Human Lispro 0 unit 07/31/19 22:00 08/03/19 08:49 Humalog SUB-Q 3 unit ACHS RHEA Administration Protocol Multivitamins/Minerals 1 each 08/01/19 10:00 08/03/19 09:03 Theragran-M Tab PO 1 each QDAY RHEA Administration Nifedipine 30 mg 07/31/19 22:00 08/02/19 22:33 Procardia Xl PO 30 mg BID RHEA Administration Ondansetron HCl 4 mg 07/31/19 17:46 Zofran IV Q8H PRN Nausea And Vomiting Oxycodone/Acetaminophen 1 tab 07/31/19 17:46 Percocet 5/325 PO Q6H PRN Pain, Moderate (4-6) Pantoprazole Sodium 40 mg 07/31/19 18:00 08/03/19 09:03 Protonix PO 40 mg QDAY RHEA Administration Sodium Chloride 10 ml 07/31/19 22:00 08/03/19 09:07 Sodium Chloride Flush Syringe 10 Ml IV 10 ml BID RHEA Administration Sodium Chloride 10 ml 07/31/19 17:46 Sodium Chloride Flush Syringe 10 Ml IV PRN PRN LINE FLUSH
[2019-08-03] MEDS: carvediloL 25 MG TAB PO SCH (14:24)
[2019-08-03] MEDS: NIFEdipine XL 30 MG TAB PO SCH (14:24)
[2019-08-03 16:13] VITALS: BP 151/75
--- NOTE | 2019-08-03 16:21 | Discharge Summary ---
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 Additional Physician Instructions: Patient needs a dialysis chair 07/31/19 13:39 Consult to Physician [CONS] Routine Comment: Consulting Provider: UBALDO COLLAZO Physician Instructions: Reason For Exam: dialysis, hyperkalemia Primary care physician: PLANNING DIVISION SUPERINTENDENT Hospitalization Condition: Stable Hospital course: Patient is a 33 yo woman with a history of IDDM type 1, hypertension, tobacco dependency and ESRD on hemodialysis with a Hemodialysis center due to severe non-adherence to attending dialysis sessions who presents to [facility] ED with SOB due to missed hemodialysis. This is patient's third time here since 07/25/2019, each time she left AMA. She had HD on 07/31/2019 and again on 08/01/19. She recently moved here from [facility] and did not set up HD. She underwent abd paracentesis on 08/02/19 with 3.8 liters removed. ESRD: needing hemodialysis, Nephrology consulted Accelerated hypertension: HD should help IDDM type 1; add ssi, accuchecks Tobacco dependency: tariff counsel on stopping Non-compliance: counseling done, pt voiced understanding and agreement. Ascites: consulted GI, she had paracentesis and work up at [facility], she report 5 liters removed about 1 month ago, records from [place] never came, did not consult GI, under abd paracentesis on 08/02/19 with 3.8L removed Disposition: try to obtain outpatient hemodialysis center, back on 07/25/19, [facility] was looking at her because she is from [facility], but they wanted a COVID-19 test first. Irvin Johnson [facility] medical physics researcher declined chair due to non-compliance on 07/31/2019 COVID-19 negative 08/02/19: COBID-19 negative, s/p 3.8 liters of ascites removed today, she feels much better. Await HD setup. 08/03/19: Medical stable for discharge, pt and I have a repertoire ([place] ties); therefore, she is cooperating and agrees to go to HD as instructed. She will go to a [facility] directed HD center setup through [place]'s [facility], unable to get HD setup until [place] Medicaid insurance; Main issue is that patient never setup HD transfer prior to moving here. Patient says that [facility] HD center in [place] has been in communication with her and they will call her when HD setup, so patient does not need to wait in the hospital for that call, whenever that maybe. I d/w Dr. Collazo and he agrees to discharge and she can come back here if [facility] doesn't assign her a chair by the time of her next HD session. Patient is upset because she doesn't want to leave and have to come back to " start over"/wait in ED. Disposition: DC-01 TO HOME OR SELFCARE Time spent for discharge: 35 minutes Core Measure Documentation - Palliative Care Palliative Care/ Comfort Measures: Not Applicable - Core Measures Any of the following diagnoses?: none - VTE Discharge Requirements Deep Vein Thrombosis/Pulmonary Embolism Present on Admission: No Has pt received <5 days of overlap therapy or INR<2.0: No Anticoagulant overlap therapy prescribed at discharge: No Contraindication No Overlap Therapy order at DC: Not Indicated Exam - Physical Exam Narrative exam: Gen: WDWN, NAD, Awake, Alert, Orientated HEENT: NCAT, EOMI, PERRL, OP Clear Neck: supple, no adenopathy, no thyromegaly, no JVD CVS/Heart: RRR, normal S1S2, pulses present bilaterally Chest/Lungs: CTA B, Symmetrical chest expansion, good air entry bilaterally GI/Abdomen: soft, distended, good bowel sounds, no guarding or rebound /Bladder: no suprapubic tenderness, no CVA or paraspinal tenderness Extermity/Skin: no obvious rash MSK: FROM x 4 Neuro: CN 2-12 grossly intact, no new focal deficits Psych: calm - Constitutional Vitals: Temp Pulse Resp BP Pulse Ox 98.2 F 78 18 151/75 99 08/03/19 16:12 08/03/19 16:12 08/03/19 16:12 08/03/19 16:12 08/03/19 16:12 Plan Activity: other Diet: renal Additional Instructions: YOU can apply for [place] medicaid ONLINE at. https://evette.gov/apply-medicaid Follow up with: PRIMARY CAREMD [Primary Care Provider] - 3-5 Days UBALDO COLLAZO MD [Staff Physician] - 7 Days
== END 2019-08-03 19:00 | disposition home or self-care (01) | DRG 640 ==
LOC: ED 11:31 → 4A 13:41 → OBSVTOIN 08-01 10:00
PROVIDERS: ADMIT Internal Medicine; ATTEND Internal Medicine
PROC: 5A1D70Z Performance of Urinary Filtration, Intermittent, Less than 6 Hours Per Day (ICD-10-PCS; principal; 2019-07-31)
PROC: 5A1D70Z Performance of Urinary Filtration, Intermittent, Less than 6 Hours Per Day (ICD-10-PCS; 2019-08-01)
PROC: 0W9G3ZZ Drainage of Peritoneal Cavity, Percutaneous Approach (ICD-10-PCS; 2019-08-02)
DX: E87.70 Fluid overload, unspecified (principal); N18.6 End stage renal disease; R18.8 Other ascites; I12.0 Hypertensive chronic kidney disease with stage 5 chronic kidney disease or end stage renal disease; E87.5 Hyperkalemia; F17.210 Nicotine dependence, cigarettes, uncomplicated; E10.65 Type 1 diabetes mellitus with hyperglycemia; Z68.33 Body mass index [BMI] 33.0-33.9, adult; D64.9 Anemia, unspecified; E66.9 Obesity, unspecified; K21.9 Gastro-esophageal reflux disease without esophagitis; K76.9 Liver disease, unspecified; E10.22 Type 1 diabetes mellitus with diabetic chronic kidney disease; Z99.2 Dependence on renal dialysis; Z82.49 Family history of ischemic heart disease and other diseases of the circulatory system; Z79.4 Long term (current) use of insulin; Z71.6 Tobacco abuse counseling; Z03.818 Encounter for observation for suspected exposure to other biological agents ruled out; Z91.15 Patient's noncompliance with renal dialysis
CPT/HCPCS: 36415; 49083; 80048; 82040; 82150; 82947; 82962; 83605; 84160; 84703; 85025; 85610; 87635; 88112; 88305; 88342; 89051; G0378; J1815; J7030

== ENCOUNTER 2019-08-07 08:29 | Observation (INO) | payer OTHER ==
[2019-08-07 09:19] LABS: Hemoglobin 9.1 gm/dl (10.1-14.3); Mean Corpuscular HGB Conc 32 % (30-34); Mean Corpuscular Volume 93 fl (79-97); Platelet Count 100 K/mm3 (140-440); Red Blood Count 3.03 M/mm3 (3.65-5.03); Red Cell Distribution Width 17.1 % (13.2-15.2)
[2019-08-07 09:36] LABS: Calcium 9.6 mg/dL (8.4-10.2)
[2019-08-07] MEDS ORDERED: ALBUTEROL 2.5 MG/3 ML NEBU IH ONE (09:46)
--- NOTE | 2019-08-07 09:47 | Emergency Department Report ---
HPI - General Chief Complaint: Medical Clearance Time Seen by Provider: 08/07/19 09:34 - HPI HPI: Room 2 The patient is a 33-year-old female present with a chief complaint of "need treatment for hemodialysis." The patient has a history of end-stage renal disease and states she was last dialyzed 4 days ago. Patient states she has not yet had outpatient hemodialysis arranged so she comes to the ED for her dialysis. The patient states Dr. 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 The patient states she has felt slight shortness of breath since yesterday. ED Past Medical Hx - Past Medical History Previous Medical History?: Yes Hx Hypertension: Yes Hx Diabetes: Yes Hx Renal Disease: Yes (M W F) Additional medical history: Denies chronic liver disease - Surgical History Past Surgical History?: Yes Additional Surgical History: fistula L arm, paracentesis - Family History Family history: no significant - Social History Smoking Status: Current Some Day Smoker Substance Use Type: Marijuana - Medications Home Medications: Home Medications Medication Instructions Recorded Confirmed Last Taken Type Aspirin [Aspirin BABY CHEW TAB] 81 mg PO QDAY 07/25/19 07/31/19 Unknown History Insulin Glargine [Lantus VIAL] 3 units SUB-Q QAM 07/25/19 07/31/19 Unknown History Insulin Glargine [Lantus VIAL] 6 units SUB-Q QHS 07/25/19 07/31/19 Unknown History NIFEdipine [Nifedipine ER] 30 mg PO BID 07/25/19 07/31/19 Unknown History Pantoprazole [Protonix TAB] 40 mg PO QDAY 07/25/19 07/31/19 Unknown History Vitamin B Complex 1 each PO DAILY 07/25/19 07/31/19 Unknown History carvediloL [Coreg] 25 mg PO BID 07/25/19 07/31/19 Unknown History Calcium Acetate [Phoslo] 2,001 mg PO TID 07/26/19 07/31/19 2 Days Ago History ~07/24/19 Lispro Insulin [HumaLOG] 2 unit SQ QAC 07/26/19 07/31/19 Unknown History ED Review of Systems ROS: Stated complaint: DIALYSIS TREATMENT Other details as noted in HPI Constitutional: no symptoms reported Eyes: denies: eye pain ENT: denies: throat pain Respiratory: shortness of breath Cardiovascular: denies: chest pain Physical Exam - Physical Exam Vital Signs: Vital Signs 08/07/19 08:32 Temperature 97.7 F Pulse Rate 69 Respiratory 20 Rate Blood Pressure 110/57 O2 Sat by Pulse 96 Oximetry Physical Exam: GENERAL: The patient is well-developed well-nourished female sitting on stretcher not appearing to be in acute distress. [] HEENT: Normocephalic. Atraumatic. Extraocular motions are intact. Patient has moist mucous membranes. NECK: Supple. Trachea midline CHEST/LUNGS: Clear to auscultation. There is no respiratory distress noted. HEART/CARDIOVASCULAR: Regular. There is no tachycardia. There is no gallop rub or murmur. ABDOMEN: Abdomen is soft, nontender. Patient has normal bowel sounds. There is no abdominal distention. SKIN: There is no rash. There is 2+ pitting lower extremity edema. There is no diaphoresis. NEURO: The patient is awake, alert, and oriented. The patient is cooperative. The patient has normal speech MUSCULOSKELETAL: There is no evidence of acute injury. ED Course Vital Signs 08/07/19 08:32 Temperature 97.7 F Pulse Rate 69 Respiratory 20 Rate Blood Pressure 110/57 O2 Sat by Pulse 96 Oximetry - Reevaluation(s) Reevaluation #1: 08/07/19 10:07 Patient's hyperkalemia explained as well as my order for calcium gluconate, sodium bicarb and albuterol nebs to the patient. Patient refuses medication and states she just wants hemodialysis. Informed by nursing that patient refuses EKG - Consultations Consultation #1: 08/07/19 09:46 Nephrology paged 08/07/19 10:[address] Dozier ED Medical Decision Making - Lab Data Result diagrams: 08/07/19 09:04 08/07/19 08:55 Laboratory Tests 08/07/19 08/07/19 08/07/19 08:55 09:04 09:04 WBC 5.3 RBC 3.03 L Hgb 9.1 L Hct 28.0 L MCV 93 MCH 30 MCHC 32 RDW 17.1 H Plt Count 100 L Sodium 137 Potassium 6.3 H* Chloride 98.5 Carbon Dioxide 21 L Anion Gap 24 BUN 75 H Creatinine 9.2 H Estimated GFR 6 BUN/Creatinine Ratio 8 Glucose 241 H Calcium 9.6 HCG, Qual Negative - Differential Diagnosis Hyperkalemia, end-stage renal disease Critical care attestation.: If time is entered above; I have spent that time in minutes in the direct care of this critically ill patient, excluding procedure time. ED Disposition Clinical Impression: ESRD needing dialysis, Hyperkalemia Disposition: OP ADMIT IP TO THIS HOSP Is pt being admited?: Yes Does the pt Need Aspirin: No Condition: Serious Time of Disposition: 10:08 (Hospitalist paged)
--- NOTE | 2019-08-07 10:09 | XRay Report ---
CHEST 2 VIEWS INDICATION: shortness of breath. COMPARISON: 07/27/2019 FINDINGS: Support devices: None. Heart: Within normal limits. Lungs/pleura: Mild central vascular congestion and interstitial prominence suggesting mild edema. No pleural effusion. No pneumothorax. Additional findings: None. IMPRESSION: 1. Probable mild edema. Signer Name: Trenton Garcia MD Signed: 08/07/2019 10:04 AM Workstation Name: [id number]
--- NOTE | 2019-08-07 11:22 | History and Physical Report ---
History of Present Illness Date of examination: 08/07/19 Date of admission: 08/07/19 10:15 Chief complaint: Need dialysis History of present illness: The patient is a 33-year-old female with end-stage renal disease on hemodialysis but does not have outpatient set up yet present with a chief complaint of "need treatment for hemodialysis." The patient was last dialyzed 4 days ago and states developed shortness of breath since yesterday. The patient states Dr. Se heart is her table setter. Patient was admitted for further evaluation and management. Patient was admitted to the hospital for similar complaints but each time she left AMA. Past Medical History Previous Medical History?: Yes Hypertension: Yes Diabetes: Yes Renal Disease: Yes (M W F) Additional medical history: Denies chronic liver disease - Surgical History Past Surgical History?: No Additional Surgical History: fistula L arm, paracentesis - Social History Smoking Status: Current Every Day Smoker Substance Use Type: None Family history Hypertension Review of System: Constitutional: no fever, no chills, no weight loss Ears, eyes, nose, mouth and throat: no nasal congestion, no nasal discharge, no sinus pressure, no vision change, no red eye. Neck: No neck pain or rigidity. Cardiovascular: No chest pain, no orthopnea, no palpitations, no leg swelling Respiratory: + shortness of breath, no cough, no congestion, no wheezing Gastrointestinal: no abdominal pain, no nausea, no vomiting Genitourinary : no dysuria, no hematuria Musculoskeletal: no joint swelling or muscle ache Integumentary: no rash, no pruritis Neurological: no parathesias, no numbness, no tingling Endocrine: no cold or heat intolerance, no polyuria or polydipsia Hematologic/Lymphatic: no easy bruising, no easy bleeding, no gland swelling Allergic/Immunologic: no urticaria, no angioedema. Medications and Allergies Allergies Allergy/AdvReac Type Severity Reaction Status Date / Time No Known Allergies Allergy Verified 07/31/19 11:39 Home Medications Medication Instructions Recorded Confirmed Last Taken Type Aspirin [Aspirin BABY CHEW TAB] 81 mg PO QDAY 07/25/19 07/31/19 Unknown History Insulin Glargine [Lantus VIAL] 3 units SUB-Q QAM 07/25/19 07/31/19 Unknown History Insulin Glargine [Lantus VIAL] 6 units SUB-Q QHS 07/25/19 07/31/19 Unknown History NIFEdipine [Nifedipine ER] 30 mg PO BID 07/25/19 07/31/19 Unknown History Pantoprazole [Protonix TAB] 40 mg PO QDAY 07/25/19 07/31/19 Unknown History Vitamin B Complex 1 each PO DAILY 07/25/19 07/31/19 Unknown History carvediloL [Coreg] 25 mg PO BID 07/25/19 07/31/19 Unknown History Calcium Acetate [Phoslo] 2,001 mg PO TID 07/26/19 07/31/19 2 Days Ago History ~07/24/19 Lispro Insulin [HumaLOG] 2 unit SQ QAC 07/26/19 07/31/19 Unknown History Exam - Physical Exam Narrative exam: GENERAL: well-developed female lying on bed appeared to be in no discomfort. HEENT: Normocephalic. Atraumatic. No conjunctival congestion or icterus. Patient has moist mucous membranes. NECK: Supple. Trachea midline. CHEST/LUNGS: Clear to auscultated bilaterally, breathing nonlabored. No wheezes crackles or rhonchi. HEART/CARDIOVASCULAR: Regular in rate and rhythm. S1 and S2 positive. ABDOMEN: Abdomen is soft, nontender. Patient has normal bowel sounds. SKIN: There is no rash. Warm and dry. NEURO: No focal motor deficit. Follows command. MUSCULOSKELETAL: No joint effusion or tenderness. EXTRIMITY: No edema, no cyanosis or clubbing. PSYCH: Cooperative. - Constitutional Vitals: Temp Pulse Resp BP Pulse Ox 97.7 F 69 20 110/57 96 08/07/19 08:32 08/07/19 08:32 08/07/19 08:32 08/07/19 08:32 08/07/19 08:32 Results - Labs CBC & Chem 7: 08/07/19 09:04 08/07/19 08:55 Labs: Abnormal lab results 08/07/19 08/07/19 Range/Units 08:55 09:04 RBC 3.03 L (3.65-5.03) M/mm3 Hgb 9.1 L (10.1-14.3) gm/dl Hct 28.0 L (30.3-42.9) % RDW 17.1 H (13.2-15.2) % Plt Count 100 L (140-440) K/mm3 Potassium 6.3 H* (3.6-5.0) mmol/L Carbon Dioxide 21 L (22-30) mmol/L BUN 75 H (7-17) mg/dL Creatinine 9.2 H (0.7-1.2) mg/dL Glucose 241 H (65-100) mg/dL Assessment and Plan ESRD: needing hemodialysis, Nephrology consulted Hyperkalemia, should improve with HD Hypertension: stable IDDM type 1; add ssi, accuchecks Tobacco dependency: credit counselor on stopping Anemia, POA: Likely secondary to ESRD.Epogen as needed. Ascites: S/p Therapeutic and diagnostic paracentesis 08/01. Patient was advised to see GI / hepatology as outpatient. Medical non-compliance. counseling done, pt voiced understanding and agreement. DVT Px, heparin
[2019-08-07] MEDS ORDERED: SODIUM BICARB 8.4% 50 MEQ/50 ML SYRINGE IV ONE (11:30)
[2019-08-07] MEDS ORDERED: ASPIRIN 81 MG TAB CHEW PO SCH (12:00)
[2019-08-07] MEDS ORDERED: INSULIN LISPRO 100 UNIT/ML SUB-Q SCH (12:00)
[2019-08-07] MEDS ORDERED: CALCIUM GLUCONATE 2,000 MG in SODIUM CHLORIDE 0.9% 100 ML IV ONE (12:00)
--- NOTE | 2019-08-07 13:32 | Consultation ---
History of Present Illness - Reason for Consult Consult date: 08/07/19 end stage renal disease, hyperkalemia - History of Present Illness The patient is a 33 YO female who is known to our service with history significant for Obesity, DM, HTN, ESRD on HD(was on MWF schedule), Anemia, Ascites, Tabacco smoking and medical non-compliance who presented to [facility] ED 08/06 in need of hemodialysis. Patient recently moved to the [facility] from [place] without arranging the transfer of outpatient dialysis chair. She was last dialyzed at this facility on 08/03/2019. She has been coming to this facility for hemodialysis. She left the hospital AMA twice in the past. She has chronic bilateral leg swelling and abdominal distention which are mostly unchanged. Patient denies fever, chills, chest pain, cough, sob, weakness, skin rash or known ill contacts. Labs work revealed K 6.3 and Hb 9.1. Nephrology was consulted for further evaluation. Past History Past Medical History: anemia, diabetes, dialysis, ESRD, hypertension, hyperlipidemia, other (Ascites) Medications and Allergies Allergies Allergy/AdvReac Type Severity Reaction Status Date / Time No Known Allergies Allergy Verified 07/31/19 11:39 Home Medications Medication Instructions Recorded Confirmed Last Taken Type Aspirin [Aspirin BABY CHEW TAB] 81 mg PO QDAY 07/25/19 07/31/19 Unknown History Insulin Glargine [Lantus VIAL] 3 units SUB-Q QAM 07/25/19 07/31/19 Unknown History Insulin Glargine [Lantus VIAL] 6 units SUB-Q QHS 07/25/19 07/31/19 Unknown History NIFEdipine [Nifedipine ER] 30 mg PO BID 07/25/19 07/31/19 Unknown History Pantoprazole [Protonix TAB] 40 mg PO QDAY 07/25/19 07/31/19 Unknown History Vitamin B Complex 1 each PO DAILY 07/25/19 07/31/19 Unknown History carvediloL [Coreg] 25 mg PO BID 07/25/19 07/31/19 Unknown History Calcium Acetate [Phoslo] 2,001 mg PO TID 07/26/19 07/31/19 2 Days Ago History ~07/24/19 Lispro Insulin [HumaLOG] 2 unit SQ QAC 07/26/19 07/31/19 Unknown History Active Meds: Active Medications Aspirin (Baby Aspirin) 81 mg PO QDAY [facility] Calcium Acetate (Phoslo) 2,001 mg PO TIDWM [facility] Insulin Glargine (Lantus) 3 units SUB-Q BIDDIAB [facility] Insulin Glargine (Lantus) 6 units SUB-Q QHS [facility] Insulin Human Lispro (Humalog) 2 unit SUB-Q QAC [facility] Pantoprazole Sodium (Protonix) 40 mg PO QDAY [facility] Thiamine HCl (Vitamin B-1) 100 mg PO QDAY [facility] Review of Systems Constitutional: no weight loss, no weight gain, no fever, no chills, no anorexia, no weakness Breasts: deferred Cardiovascular: edema, high blood pressure, leg edema, no chest pain, no orthopnea, no syncope, no lightheadedness, no shortness of breath Respiratory: no cough, no hemoptysis, no shortness of breath, no dyspnea on exe rtion Gastrointestinal: no abdominal pain, no nausea, no vomiting, no diarrhea, no melena Rectal: no bleeding Musculoskeletal: no muscle weakness Integumentary: no rash Neurological: no change in speech, no change in mentation, no confusion Exam - Vital Signs Vital signs: Vital Signs Temp Pulse Resp BP Pulse Ox 97.7 F 69 20 110/57 96 08/07/19 08:32 08/07/19 08:32 08/07/19 08:32 08/07/19 08:32 08/07/19 08:32 Results - Lab Results 08/07/19 09:04 08/07/19 08:55 Most recent lab results Calcium 9.6 mg/dL (8.4-10.2) 08/07/19 08:55 Assessment and Plan 1. ESRD: Patient was on maintenance hemodialysis three times a week. Last outpatient HD 07/20/19. Outpatient HD chair confirmed at [facility] schedule. Hemodialysis: 08/06. 2. FEN: Volume overload, UF with HD as tolerated. Hyperkalemia, HD today, monitor. Monitor lytes. 3. Anemia, POA: Likely secondary to ESRD. Epogen as needed. 4. Hypertension: Continue home meds. BP is controlled at time of exam. Monitor BP. 5. Ascites: Cause unclear. S/p Therapeutic and diagnostic paracentesis 08/01. Patient was advised to see GI / hepatology as outpatient. 6. DM. 7. Medical non-compliance. Objective: - Exam: General appearance: well-developed, well-nourished, appears stated age, no distress EENT: ATNC, PERRL, mucous membranes moist, hearing intact, vision intact Neck: neck supple, trachea midline Respiratory: Clear to Auscultation Heart: regular, S1S2, no murmurs Gastrointestinal: normoactive bowel sounds, distended, ascites noted, not tender Integumentary: no rash, warm and dry Neurologic: no focal deficit, no asterixis, alert and oriented x3 Ext: 1+ LE edema noted Hemodialysis access: L arm AVF
[2019-08-07] MEDS ORDERED: CALCIUM ACETATE 667 MG CAP PO SCH (14:00)
[2019-08-07 17:45] VITALS: BP 118/58
[2019-08-07] MEDS ORDERED: INSULIN GLARGINE 100 UNITS/ML SUB-Q SCH (22:00)
[2019-08-08] MEDS ORDERED: INSULIN GLARGINE 100 UNITS/ML SUB-Q SCH (08:00)
[2019-08-08] MEDS ORDERED: THIAMINE 100 MG TAB PO SCH (10:00)
[2019-08-08] MEDS ORDERED: PANTOPRAZOLE 40 MG TAB PO SCH (10:00)
--- NOTE | 2019-08-08 12:27 | Discharge Summary ---
Providers - Providers Date of Admission: 08/07/19 10:15 Date of discharge: 08/07/19 Attending physician: JAMIE CRAWFORD 08/07/19 10:06 Consult to Physician [CONS] Stat Comment: DR JENN HOLLAND W/DR COLLAZO @[id number] Consulting Provider: UBALDO COLLAZO Physician Instructions: Reason For Exam: Hyperkalemia, end-stage renal disease Primary care physician: HEALTH EDUCATOR Hospitalization Condition: Serious Hospital course: The patient is a 33-year-old female with end-stage renal disease on hemodialysis but does not have outpatient set up yet present with a chief complaint of "need treatment for hemodialysis." The patient was last dialyzed 4 days ago and states developed shortness of breath since yesterday. 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 Patient was admitted for further evaluation and management. Patient was admitted to the hospital for similar complaints but each time she left AMA. Patient was emergently dialyzed, following dialysis when patient arrived at floor she left hospital without informing anyone. Discharge diagnosis: ESRD: needing hemodialysis, Nephrology consulted. Does not have outpatient dialysis set up Hyperkalemia, should improve with HD Hypertension: stable IDDM type 1; added ssi, accuchecks Tobacco dependency: counseled on stopping Anemia, POA: Likely secondary to ESRD. Ascites: S/p Therapeutic and diagnostic paracentesis 08/01. Patient was advised to see GI / hepatology as outpatient. Medical non-compliance. counseling done, pt voiced understanding and agreement. But still she left AMA DVT Px, heparin Disposition: - LEFT AGAINST MED ADVICE Core Measure Documentation - Palliative Care Palliative Care/ Comfort Measures: Not Applicable - Core Measures Any of the following diagnoses?: none Exam - Constitutional Vitals: Temp Pulse Resp BP Pulse Ox 98.2 F 77 18 118/58 97 08/07/19 14:45 08/07/19 14:45 08/07/19 14:45 08/07/19 14:45 08/07/19 12:24 Plan Follow up with: PRIMARY MD GERALD [Primary Care Provider] - 7 Days Forms: AMA Form
== END 2019-08-07 15:25 | disposition left against medical advice (07) ==
LOC: ED 08:29 → 4A 10:15
PROVIDERS: ADMIT Internal Medicine; ATTEND Internal Medicine
DX: I12.0 Hypertensive chronic kidney disease with stage 5 chronic kidney disease or end stage renal disease (principal); E11.22 Type 2 diabetes mellitus with diabetic chronic kidney disease; N18.6 End stage renal disease; E87.5 Hyperkalemia; D64.9 Anemia, unspecified; R18.8 Other ascites; R16.0 Hepatomegaly, not elsewhere classified; F17.200 Nicotine dependence, unspecified, uncomplicated; Z99.2 Dependence on renal dialysis; Z79.82 Long term (current) use of aspirin; Z79.4 Long term (current) use of insulin; Z79.899 Other long term (current) drug therapy; Z91.19 Patient's noncompliance with other medical treatment and regimen
CPT/HCPCS: 36415; 71046; 80048; 84703; 85027; 94640; 99284; G0257; G0378; J0610

== ENCOUNTER 2019-10-13 19:45 | Emergency (ER) | payer MEDICARE ==
[2019-10-13 19:51] VITALS: BP 183/89
[2019-10-13] MEDS ORDERED: ASPIRIN 325 MG TAB PO ONE (19:52)
[2019-10-13 20:21] LABS: Basophils % (Auto) 0.4 % (0.0-1.8); Eosinophils # (Auto) 0.1 K/mm3 (0.0-0.4); Eosinophils % (Auto) 1.2 % (0.0-4.3); Hematocrit 27.1 % (30.3-42.9); Hemoglobin 9.1 gm/dl (10.1-14.3); Lymphocytes # (Auto) 0.8 K/mm3 (1.2-5.4); Mean Corpuscular HGB Conc 34 % (30-34); Mean Corpuscular Volume 89 fl (79-97); Monocytes # (Auto) 0.4 K/mm3 (0.0-0.8); Monocytes % (Auto) 6.6 % (0.0-7.3); Red Blood Count 3.06 M/mm3 (3.65-5.03); Red Cell Distribution Width 16.7 % (13.2-15.2)
[2019-10-13 20:24] LABS: Platelet Count 94 K/mm3 (140-440)
--- NOTE | 2019-10-13 20:48 | XRay Report ---
CHEST 1 VIEW 10/13/2019 7:40 PM INDICATION / CLINICAL INFORMATION: Chest Pain. COMPARISON: Chest x-ray done earlier on 10/13/2019. FINDINGS: SUPPORT DEVICES: None. HEART / MEDIASTINUM: Stable moderate cardiomegaly. LUNGS / PLEURA: No significant pulmonary or pleural abnormality. No pneumothorax. ADDITIONAL FINDINGS: No significant additional findings. IMPRESSION: 1. No adverse change from the prior exam. Signer Name: Mo Starr MD Signed: 10/13/2019 8:43 PM Workstation Name: [id number]
--- NOTE | 2019-10-13 21:03 | Emergency Department Report ---
ED General Adult HPI - General Chief complaint: Recheck/Abnormal Lab/Rx Stated complaint: HIGH POTASSIUM,LOW BP Time Seen by Provider: 10/13/19 20:26 Source: patient Mode of arrival: Ambulatory Limitations: No Limitations - History of Present Illness Initial comments: 34-year-old female with history of ESRD presents to the ED for readmission. Patient initially presented early this morning at around 5 AM. At that time patient was bradycardic into the 30s and hypotensive with systolic BP in the 70s. Patient was found to be hyperkalemic, was given treatment for her elevated potassium and also IV fluid resuscitation. Patient reports that she was d ialyzed while here in the ED. After dialysis, patient reports she left to smoke a cigar. There is a not by RN at 16:30 that states pt left AMA. Patient was triaged again at 19:46 when she returned. Patient reports her frind picked her up so that she could smoke inhis car. They then went to get something to eat, but the car broke down 3 times while they were out which is why it took her so long to return. Patient states she came back so that she could have paracentesis done. -: This morning - Related Data Home Medications Medication Instructions Recorded Confirmed Last Taken Aspirin [Aspirin BABY CHEW TAB] 81 mg PO QDAY 07/25/19 07/31/19 Unknown Insulin Glargine [Lantus VIAL] 3 units SUB-Q QAM 07/25/19 07/31/19 Unknown Insulin Glargine [Lantus VIAL] 6 units SUB-Q QHS 07/25/19 07/31/19 Unknown NIFEdipine [Nifedipine ER] 30 mg PO BID 07/25/19 07/31/19 Unknown Pantoprazole [Protonix TAB] 40 mg PO QDAY 07/25/19 07/31/19 Unknown Vitamin B Complex 1 each PO DAILY 07/25/19 07/31/19 Unknown carvediloL [Coreg] 25 mg PO BID 07/25/19 07/31/19 Unknown Calcium Acetate [Phoslo] 2,001 mg PO TID 07/26/19 07/31/19 2 Days Ago ~07/24/19 Lispro Insulin [HumaLOG] 2 unit SQ QAC 07/26/19 07/31/19 Unknown Allergies Allergy/AdvReac Type Severity Reaction Status Date / Time No Known Allergies Allergy Verified 07/31/19 11:39 ED Review of Systems ROS: Stated complaint: HIGH POTASSIUM,LOW BP Other details as noted in HPI Comment: All other systems reviewed and negative Respiratory: denies: shortness of breath Gastrointestinal: denies: vomiting ED Past Medical Hx - Past Medical History Previous Medical History?: Yes Hx Hypertension: Yes Hx Congestive Heart Failure: No Hx Diabetes: Yes Hx Renal Disease: Yes (T T & S) Hx Asthma: No Hx COPD: No Additional medical history: Denies chronic liver disease. Pericariditis - Surgical History Past Surgical History?: Yes Additional Surgical History: fistula L arm, paracentesis - Social History Smoking Status: Current Every Day Smoker Substance Use Type: Marijuana - Medications Home Medications: Home Medications Medication Instructions Recorded Confirmed Last Taken Type Aspirin [Aspirin BABY CHEW TAB] 81 mg PO QDAY 07/25/19 07/31/19 Unknown History Insulin Glargine [Lantus VIAL] 3 units SUB-Q QAM 07/25/19 07/31/19 Unknown History Insulin Glargine [Lantus VIAL] 6 units SUB-Q QHS 07/25/19 07/31/19 Unknown History NIFEdipine [Nifedipine ER] 30 mg PO BID 07/25/19 07/31/19 Unknown History Pantoprazole [Protonix TAB] 40 mg PO QDAY 07/25/19 07/31/19 Unknown History Vitamin B Complex 1 each PO DAILY 07/25/19 07/31/19 Unknown History carvediloL [Coreg] 25 mg PO BID 07/25/19 07/31/19 Unknown History Calcium Acetate [Phoslo] 2,001 mg PO TID 07/26/19 07/31/19 2 Days Ago History ~07/24/19 Lispro Insulin [HumaLOG] 2 unit SQ QAC 07/26/19 07/31/19 Unknown History ED Physical Exam - General Limitations: No Limitations General appearance: alert, in no apparent distress - Head Head exam: Present: atraumatic, normocephalic - Eye Eye exam: Present: normal appearance, EOMI - ENT ENT exam: Present: mucous membranes moist - Neck Neck exam: Present: normal inspection - Respiratory Respiratory exam: Present: normal lung sounds bilaterally. Absent: respiratory distress - Cardiovascular Cardiovascular Exam: Present: regular rate, normal rhythm - GI/Abdominal GI/Abdominal exam: Present: distended (moderate). Absent: tenderness - Neurological Exam Neurological exam: Present: alert, oriented X3 - Psychiatric Psychiatric exam: Present: normal affect, normal mood - Skin Skin exam: Present: warm, dry, intact, normal color ED Course Vital Signs 10/13/19 19:49 Temperature 98.7 F Pulse Rate 80 Respiratory 18 Rate Blood Pressure 183/89 O2 Sat by Pulse 98 Oximetry - Consultations Consultation #1: 10/13/19 21:17 I spoke w/ Dr Collazo. States pt does not require hospitalization at this time since potassium is normal and pt in no resp distress. Per Dr Collazo pt has been noncompliant with setting up outpatient paracentesis. When he spoke w/ pt this morning, pt promised to make the necessary phone calls on this upcoming Tuesday. ED Medical Decision Making - Lab Data Result diagrams: 10/13/19 19:56 10/13/19 19:56 - Radiology Data Radiology results: report reviewed, image reviewed - Medical Decision Making 34-year-old female previously seen earlier today and treated for hyperkalemia. Went dialysis and then eloped from the hospital. Patient returns to the ED in order to be admitted. Patient's labs have significantly improved, she is no longer hyperkalemic. She is also no longer bradycardic and hypotensive. Pain without difficulty. Spoke with her director of workforce development, who feels she does not need to be admitted at this time. Patient can follow-up as an outpatient for paracentesis. - Differential Diagnosis Hyperkalemia, pulmonary edema, ascites Critical care attestation.: If time is entered above; I have spent that time in minutes in the direct care of this critically ill patient, excluding procedure time. ED Disposition Clinical Impression: ESRD (end stage renal disease) Disposition: DC-01 TO HOME OR SELFCARE Is pt being admited?: No Condition: Stable Instructions: End-Stage Kidney Disease (ED) Referrals: UBALDO COLLAZO MD [Staff Physician] - as needed Time of Disposition: 21:19
== END 2019-10-13 21:15 | disposition home or self-care (01) ==
LOC: ED 19:45
DX: E13.22 Other specified diabetes mellitus with diabetic chronic kidney disease (principal); N18.6 End stage renal disease; I10 Essential (primary) hypertension; F17.200 Nicotine dependence, unspecified, uncomplicated; F12.10 Cannabis abuse, uncomplicated; Z99.2 Dependence on renal dialysis; Z79.4 Long term (current) use of insulin; Z79.899 Other long term (current) drug therapy
CPT/HCPCS: 36415; 71045; 80048; 84484; 85025; 93005

== ENCOUNTER 2019-12-06 07:45 | Outpatient (CLI) | payer MEDICARE ==
[2019-12-06] MEDS ORDERED: ALBUMIN HUMAN 25% (25 GM/100 ML) INJ IV PRN (10:53)
--- NOTE | 2019-12-06 11:00 | Procedure Note ---
Date of procedure: 12/06/19 Pre-op diagnosis: Ascites Post-op diagnosis: same Procedure: US-guided paracentesis. Findings: Please see report in PACS. Anesthesia: local Surgeon: BRANDON VEGA Estimated blood loss: none Pathology: none Specimen disposition: discarded Condition: stable Disposition: floor
--- NOTE | 2019-12-06 11:15 | Ultrasound Report ---
Ultrasound-guided paracentesis HISTORY: Ascites with dyspnea. PROCEDURE: The risks (including but not limited to bleeding, infection, and bowel injury) and benefi ts were explained to the patient and informed consent was obtained. A time out procedure was perform ed. Ultrasound was used to evaluate the abdomen and locate the largest ascites fluid pocket. Once the sk in was marked, the procedure site was prepped and draped in the usual sterile fashion and lidocaine w as used for local anesthesia. A skin oleg was made and a 6-Afghan paracentesis catheter was placed. The patient was monitored closely throughout the procedure, and a total of 5300 mL of straw-colored fluid was aspirated. Samples were sent to the lab for further evaluation per the primary clinicians orders. The patient tolerated the procedure well with no complications. IMPRESSION: Successful paracentesis as above with a total of 5300 mL of straw-colored fluid aspirated . Signer Name: Trenton Garcia MD Signed: 12/06/2019 11:11 AM Workstation Name: [id number]
[2019-12-06 11:38] VITALS: BP 125/64
== END 2019-12-06 12:00 | disposition home or self-care (01) ==
LOC: CATHLABREC 07:45
PROVIDERS: ATTEND Internal Medicine Nephrology
DX: R18.8 Other ascites (principal); I13.2 Hypertensive heart and chronic kidney disease with heart failure and with stage 5 chronic kidney disease, or end stage renal disease; I50.9 Heart failure, unspecified; E11.22 Type 2 diabetes mellitus with diabetic chronic kidney disease; N18.9 Chronic kidney disease, unspecified; D69.6 Thrombocytopenia, unspecified; F17.210 Nicotine dependence, cigarettes, uncomplicated; K21.9 Gastro-esophageal reflux disease without esophagitis; E11.65 Type 2 diabetes mellitus with hyperglycemia; Z91.15 Patient's noncompliance with renal dialysis; Z99.2 Dependence on renal dialysis; Z79.4 Long term (current) use of insulin; Z79.899 Other long term (current) drug therapy; Z98.890 Other specified postprocedural states; Z82.49 Family history of ischemic heart disease and other diseases of the circulatory system
CPT/HCPCS: 49083; P9047

== ENCOUNTER 2019-12-13 07:51 | Outpatient (CLI) | payer MEDICARE ==
[2019-12-13] MEDS ORDERED: ALBUMIN HUMAN 25% (25 GM/100 ML) INJ IV PRN (10:03)
--- NOTE | 2019-12-13 10:03 | Short Stay Summary ---
Short Stay Documentation Date of service: 12/13/19 Narrative H&P: ascites - History Past Medical History: renal failure - Allergies and Medications Current Medications: Allergies No Known Allergies Allergy (Verified 07/31/19 11:39) Home Medications Medication Instructions Recorded Confirmed Last Taken Type Insulin Glargine [Lantus VIAL] 3 units SUB-Q QAM 07/25/19 12/06/19 12/05/19 History Insulin Glargine [Lantus VIAL] 6 units SUB-Q HS 07/25/19 12/06/19 12/05/19 History 6 units NIFEdipine [Nifedipine ER] 30 mg PO BID 07/25/19 12/06/19 12/06/19 08:30 History 1 tab carvediloL [Coreg] 25 mg PO BID 07/25/19 12/06/19 12/06/19 08:30 History 1 tab Calcium Acetate [Phoslo] 2,001 mg PO TID 07/26/19 12/06/19 12/05/19 History 1 tab Lispro Insulin [HumaLOG] 2 unit SQ QAC 07/26/19 12/06/19 11/21/19 History - Physical exam General appearance: no acute distress Gastrointestinal: distended - Brief post op/procedure progress note Date of procedure: 12/13/19 Pre-op diagnosis: ascites Post-op diagnosis: same Procedure: US paracentesis Anesthesia: local Findings: moderate ascites Surgeon: DAVID CROUCH Estimated blood loss: none Pathology: none Specimen disposition: discarded Condition: stable - Hospital course Hospital course: uneventful - Disposition Condition at discharge: Good Disposition: DC-01 TO HOME OR SELFCARE Short Stay Discharge Plan Follow up with: PRIMARY CAREMD [Primary Care Provider] - 7 Days
[2019-12-13 10:28] VITALS: BP 140/75
--- NOTE | 2019-12-13 12:00 | Ultrasound Report ---
ULTRASOUND-GUIDED PARACENTESIS HISTORY: Ascites. PROCEDURE: The risks (including but not limited to bleeding, infection, and bowel injury) and benefi ts were explained to the patient and informed consent was obtained. A time out procedure was perform ed. Ultrasound was used to evaluate the abdomen and locate the largest ascites fluid pocket. Once the sk in was marked, the procedure site was prepped and draped in the usual sterile fashion and lidocaine w as used for local anesthesia. A skin oleg was made and a 5 Filipino centesis catheter was placed. The patient was monitored closely throughout the procedure, and a total of 4400 mL of clear yellow fluid was aspirated. No labs were ordered. The patient tolerated the procedure well with no complications. IMPRESSION: Successful ultrasound-guided paracentesis as described. Signer Name: Garrett Carreno Jr, MD Signed: 12/13/2019 11:56 AM Workstation Name: [id number]
== END 2019-12-13 10:45 | disposition home or self-care (01) ==
LOC: US 07:51 → CATHLABREC 07:51
PROVIDERS: ATTEND Internal Medicine Nephrology
DX: R18.8 Other ascites (principal); I13.2 Hypertensive heart and chronic kidney disease with heart failure and with stage 5 chronic kidney disease, or end stage renal disease; E11.22 Type 2 diabetes mellitus with diabetic chronic kidney disease; N18.6 End stage renal disease; I50.9 Heart failure, unspecified; K21.9 Gastro-esophageal reflux disease without esophagitis; D69.6 Thrombocytopenia, unspecified; F17.210 Nicotine dependence, cigarettes, uncomplicated; E11.65 Type 2 diabetes mellitus with hyperglycemia; Z99.2 Dependence on renal dialysis; Z98.890 Other specified postprocedural states; Z79.899 Other long term (current) drug therapy; Z79.4 Long term (current) use of insulin; Z82.49 Family history of ischemic heart disease and other diseases of the circulatory system
CPT/HCPCS: 49083

== ENCOUNTER 2019-12-27 08:54 | Outpatient (CLI) | payer MEDICARE ==
[2019-12-27 09:36] LABS: INR 1.32 (0.87-1.13)
[2019-12-27 09:38] LABS: Partial Thromboplastin Time 33.2 Sec. (24.2-36.6)
--- NOTE | 2019-12-27 11:24 | Short Stay Summary ---
Short Stay Documentation Date of service: 12/27/19 - History Principal diagnosis: ascites Past Medical History: renal failure - Allergies and Medications Current Medications: Allergies No Known Allergies Allergy (Verified 07/31/19 11:39) Home Medications Medication Instructions Recorded Confirmed Last Taken Type Insulin Glargine [Lantus VIAL] 3 units SUB-Q QAM 07/25/19 12/06/19 12/05/19 History Insulin Glargine [Lantus VIAL] 6 units SUB-Q HS 07/25/19 12/06/19 12/05/19 History 6 units NIFEdipine [Nifedipine ER] 30 mg PO BID 07/25/19 12/06/19 12/06/19 08:30 History 1 tab carvediloL [Coreg] 25 mg PO BID 07/25/19 12/06/19 12/06/19 08:30 History 1 tab Calcium Acetate [Phoslo] 2,001 mg PO TID 07/26/19 12/06/19 12/05/19 History 1 tab Lispro Insulin [HumaLOG] 2 unit SQ QAC 07/26/19 12/06/19 11/21/19 History - Physical exam General appearance: no acute distress Gastrointestinal: distended - Brief post op/procedure progress note Date of procedure: 12/27/19 Pre-op diagnosis: ascites Post-op diagnosis: same Procedure: US paracentesis Anesthesia: local Findings: moderate ascites Surgeon: DAVID CROUCH Estimated blood loss: none Pathology: none Specimen disposition: discarded Condition: stable - Hospital course Hospital course: uneventful - Disposition Condition at discharge: Good Disposition: DC-01 TO HOME OR SELFCARE Short Stay Discharge Plan Follow up with: PRIMARY CAREMD [Primary Care Provider] - 7 Days
[2019-12-27 11:31] VITALS: BP 118/63
[2019-12-27] MEDS ORDERED: ALBUMIN HUMAN 25% (25 GM/100 ML) INJ IV PRN (12:00)
--- NOTE | 2019-12-27 16:09 | Ultrasound Report ---
ULTRASOUND-GUIDED PARACENTESIS HISTORY: Ascites. PROCEDURE: The risks (including but not limited to bleeding, infection, and bowel injury) and benefi ts were explained to the patient and informed consent was obtained. A time out procedure was perform ed. Ultrasound was used to evaluate the abdomen and locate the largest ascites fluid pocket. Once the sk in was marked, the procedure site was prepped and draped in the usual sterile fashion and lidocaine w as used for local anesthesia. A skin oleg was made and a 5 [place] centesis catheter was placed. The patient was monitored closely throughout the procedure, and a total of 5100 mL of clear yellow fluid was aspirated. No labs were ordered. The patient tolerated the procedure well with no complications. IMPRESSION: Successful ultrasound-guided paracentesis as described. Signer Name: Garrett Carreno Jr, MD Signed: 12/27/2019 4:05 PM Workstation Name: [id number]
== END 2019-12-27 11:45 | disposition home or self-care (01) ==
LOC: CATHLABREC 08:54
PROVIDERS: ATTEND Internal Medicine Nephrology
DX: R18.8 Other ascites (principal); F17.210 Nicotine dependence, cigarettes, uncomplicated; I13.2 Hypertensive heart and chronic kidney disease with heart failure and with stage 5 chronic kidney disease, or end stage renal disease; E11.22 Type 2 diabetes mellitus with diabetic chronic kidney disease; I50.9 Heart failure, unspecified; N18.6 End stage renal disease; K21.9 Gastro-esophageal reflux disease without esophagitis; D69.6 Thrombocytopenia, unspecified; Z99.2 Dependence on renal dialysis; Z79.899 Other long term (current) drug therapy; Z91.15 Patient's noncompliance with renal dialysis; Z79.4 Long term (current) use of insulin; Z98.890 Other specified postprocedural states; Z82.49 Family history of ischemic heart disease and other diseases of the circulatory system
CPT/HCPCS: 36415; 49083; 85610; 85730; P9047

== ENCOUNTER 2020-01-10 08:35 | Day surgery (SDC) | payer MEDICARE ==
[2020-01-10] MEDS ORDERED: ALBUMIN HUMAN 25% (25 GM/100 ML) INJ IV PRN (12:34)
--- NOTE | 2020-01-10 12:34 | Short Stay Summary ---
Short Stay Documentation Date of service: 01/10/20 Narrative H&P: ascites - History Principal diagnosis: ascites Past Medical History: renal failure - Allergies and Medications Current Medications: Allergies No Known Allergies Allergy (Verified 07/31/19 11:39) Home Medications Medication Instructions Recorded Confirmed Last Taken Type Insulin Glargine [Lantus VIAL] 3 units SUB-Q QAM 07/25/19 01/10/20 01/09/20 History 3 units Insulin Glargine [Lantus VIAL] 6 units SUB-Q HS 07/25/19 01/10/20 01/09/20 History 6 units NIFEdipine [Nifedipine ER] 30 mg PO BID 07/25/19 01/10/20 01/10/20 07:00 History carvediloL [Coreg] 25 mg PO BID 07/25/19 01/10/20 01/10/20 07:00 History Calcium Acetate [Phoslo] 2,001 mg PO TID 07/26/19 01/10/20 01/09/20 History 2001 mg Lispro Insulin [HumaLOG] 2 unit SQ QAC 07/26/19 01/10/20 01/09/20 History 2 units - Physical exam General appearance: no acute distress Gastrointestinal: distended - Brief post op/procedure progress note Date of procedure: 01/10/20 Pre-op diagnosis: ascites Post-op diagnosis: same Procedure: US paracentesis Anesthesia: local Findings: moderate ascites Surgeon: DAVID CROUCH Estimated blood loss: none Pathology: none Specimen disposition: discarded Condition: stable - Hospital course Hospital course: uneventful - Disposition Condition at discharge: Good Disposition: DC-01 TO HOME OR SELFCARE Short Stay Discharge Plan Follow up with: PRIMARY CAREMD [Primary Care Provider] - 7 Days
[2020-01-10 12:46] VITALS: BP 105/48
--- NOTE | 2020-01-10 13:30 | Ultrasound Report ---
ULTRASOUND-GUIDED PARACENTESIS HISTORY: ascites. PROCEDURE: The risks (including but not limited to bleeding, infection, and bowel injury) and benefi ts were explained to the patient and informed consent was obtained. A time out procedure was perform ed. Ultrasound was used to evaluate the abdomen and locate the largest ascites fluid pocket. Once the sk in was marked, the procedure site was prepped and draped in the usual sterile fashion and lidocaine w as used for local anesthesia. A skin oleg was made and a 5 Ukrainian centesis catheter was placed. The patient was monitored closely throughout the procedure, and a total of 5300 mL of clear yellow fluid was aspirated. No labs were ordered. The patient tolerated the procedure well with no complications. IMPRESSION: Successful ultrasound-guided paracentesis as described. Signer Name: Garrett Carreno Jr, MD Signed: 01/10/2020 1:26 PM Workstation Name: [id number]
== END 2020-01-10 12:50 | disposition home or self-care (01) ==
LOC: CATHLABREC 08:35 → US 08:35 → EDSTATUS 09:00 → CATHLABREC 12:50
PROVIDERS: ATTEND Internal Medicine Nephrology
DX: R18.8 Other ascites (principal); F17.210 Nicotine dependence, cigarettes, uncomplicated; I13.2 Hypertensive heart and chronic kidney disease with heart failure and with stage 5 chronic kidney disease, or end stage renal disease; E11.22 Type 2 diabetes mellitus with diabetic chronic kidney disease; I50.9 Heart failure, unspecified; N18.6 End stage renal disease; K21.9 Gastro-esophageal reflux disease without esophagitis; D69.6 Thrombocytopenia, unspecified; E11.65 Type 2 diabetes mellitus with hyperglycemia; Z79.4 Long term (current) use of insulin; Z79.899 Other long term (current) drug therapy; Z99.2 Dependence on renal dialysis; Z98.890 Other specified postprocedural states; Z82.49 Family history of ischemic heart disease and other diseases of the circulatory system
CPT/HCPCS: 49083; P9047

== ENCOUNTER 2020-01-16 19:56 | Observation (INO) | payer MEDICARE ==
--- NOTE | 2020-01-16 20:24 | Emergency Department Report ---
Blank Doc - Documentation Documentation: 34-year-old female that presents with mixed dialysis x 2. This initial assessment/diagnostic orders/clinical plan/treatment(s) is/are subject to change based on patient's health status, clinical progression and re- assessment by fellow clinical providers in the ED. Further treatment and workup at subsequent clinical providers discretion. Patient/guardians urged not to elope from the ED as their condition may be serious if not clinically assessed and managed. Initial orders include: 1- Patient sent to MAIN ED for further evaluation and treatment 2- labs
[2020-01-16 21:10] LABS: Basophils # (Auto) 0.1 K/mm3 (0.0-0.1); Basophils % (Auto) 0.8 % (0.0-1.8); Eosinophils # (Auto) 0.4 K/mm3 (0.0-0.4); Eosinophils % (Auto) 5.7 % (0.0-4.3); Hematocrit 29.7 % (30.3-42.9); Hemoglobin 9.6 gm/dl (10.1-14.3); Lymphocytes # (Auto) 0.9 K/mm3 (1.2-5.4); Lymphocytes % (Auto) 12.9 % (13.4-35.0); Mean Corpuscular HGB Conc 32 % (30-34); Mean Corpuscular Volume 91 fl (79-97); Monocytes # (Auto) 0.5 K/mm3 (0.0-0.8); Monocytes % (Auto) 6.6 % (0.0-7.3); Platelet Count 145 K/mm3 (140-440); Red Blood Count 3.25 M/mm3 (3.65-5.03); Red Cell Distribution Width 16.1 % (13.2-15.2)
[2020-01-16 21:35] LABS: Albumin 3.3 g/dL (3.9-5); Calcium 8.5 mg/dL (8.4-10.2)
[2020-01-16] MEDS ORDERED: INSULIN REGULAR, HUMAN 100 UNIT/ML 3ML VIAL IV ONE (23:59)
[2020-01-16] MEDS ORDERED: traMADol 50 MG TAB PO ONE (23:59)
[2020-01-16] MEDS ORDERED: SODIUM BICARB 8.4% 50 MEQ/50 ML SYRINGE IV ONE (23:59)
[2020-01-16] MEDS ORDERED: SODIUM POLYSTYRENE 15 GM/60 ML ORAL LIQD PR ONE (23:59)
[2020-01-17] MEDS ORDERED: DEXTROSE 50% IN WATER (25GM) 50 ML SYRINGE IV ONE
[2020-01-17] MEDS ORDERED: CALCIUM GLUCONATE 1,000 MG in SODIUM CHLORIDE 0.9% 100 ML IV ONE
--- NOTE | 2020-01-17 00:20 | Emergency Department Report ---
ED General Adult HPI - General Chief complaint: Chest Pain Stated complaint: GENERAL WEAKNESS/HYPERGLYCEMIA Time Seen by Provider: 01/16/20 20:23 Source: patient, EMS Mode of arrival: Wheelchair Limitations: No Limitations - History of Present Illness Initial comments: The patient presents to the emergency department with a chief complaint of itching. Patient states that she is a Tuesday, , Tuesday dialysis patient. Patient states her last dialysis was last Tuesday. Patient states she did not want dialysis for her last 2 sessions due to transportation issues. Patient denies chest pain, shortness breath, or headache. -: Gradual Severity scale (0 -10): 0 Consistency: constant Improves with: none Worsens with: none Associated Symptoms: denies other symptoms Treatments Prior to Arrival: none - Related Data Home Medications Medication Instructions Recorded Confirmed Last Taken Insulin Glargine [Lantus VIAL] 3 units SUB-Q QAM 07/25/19 01/10/20 01/09/20 3 units Insulin Glargine [Lantus VIAL] 6 units SUB-Q HS 07/25/19 01/10/20 01/09/20 6 units NIFEdipine [Nifedipine ER] 30 mg PO BID 07/25/19 01/10/20 01/10/20 07:00 carvediloL [Coreg] 25 mg PO BID 07/25/19 01/10/20 01/10/20 07:00 Calcium Acetate [Phoslo] 2,001 mg PO TID 07/26/19 01/10/20 01/09/20 2001 mg Lispro Insulin [HumaLOG] 2 unit SQ QAC 07/26/19 01/10/20 01/09/20 2 units Allergies Allergy/AdvReac Type Severity Reaction Status Date / Time No Known Allergies Allergy Verified 07/31/19 11:39 ED Review of Systems ROS: Stated complaint: GENERAL WEAKNESS/HYPERGLYCEMIA Other details as noted in HPI Comment: All other systems reviewed and negative Constitutional: denies: chills, fever Eyes: denies: eye pain, eye discharge, vision change ENT: denies: ear pain, throat pain Respiratory: denies: cough, shortness of breath, wheezing Cardiovascular: denies: chest pain, palpitations Endocrine: no symptoms reported Gastrointestinal: denies: abdominal pain, nausea, diarrhea Genitourinary: denies: urgency, dysuria, discharge Musculoskeletal: denies: back pain, joint swelling, arthralgia Skin: denies: rash, lesions Neurological: denies: headache, weakness, paresthesias Psychiatric: denies: anxiety, depression Hematological/Lymphatic: denies: easy bleeding, easy bruising ED Past Medical Hx - Past Medical History Hx Hypertension: Yes (2013) Hx Heart Attack/AMI: Yes (father) Hx Congestive Heart Failure: Yes (father) Hx Diabetes: Yes Hx Deep Vein Thrombosis: No Hx Pulmonary Embolism: No Hx Renal Disease: Yes (T T & S) Hx Asthma: No Hx COPD: No Hx Tuberculosis: No Hx HIV: No Additional medical history: Denies chronic liver disease. Pericariditis - Surgical History Hx Coronary Stent: No Hx Open Heart Surgery: No Hx Pacemaker: No Hx Internal Defibrillator: No Additional Surgical History: fistula L arm, paracentesis - Social History Smoking Status: Current Every Day Smoker Substance Use Type: None - Medications Home Medications: Home Medications Medication Instructions Recorded Confirmed Last Taken Type Insulin Glargine [Lantus VIAL] 3 units SUB-Q QAM 07/25/19 01/10/20 01/09/20 History 3 units Insulin Glargine [Lantus VIAL] 6 units SUB-Q HS 07/25/19 01/10/20 01/09/20 History 6 units NIFEdipine [Nifedipine ER] 30 mg PO BID 07/25/19 01/10/20 01/10/20 07:00 History carvediloL [Coreg] 25 mg PO BID 07/25/19 01/10/20 01/10/20 07:00 History Calcium Acetate [Phoslo] 2,001 mg PO TID 07/26/19 01/10/20 01/09/20 History 2001 mg Lispro Insulin [HumaLOG] 2 unit SQ QAC 07/26/19 01/10/20 01/09/20 History 2 units ED Physical Exam - General Limitations: No Limitations General appearance: alert, in no apparent distress - Head Head exam: Present: atraumatic, normocephalic - Eye Eye exam: Present: normal appearance, PERRL, EOMI - ENT ENT exam: Present: mucous membranes moist - Neck Neck exam: Present: normal inspection - Respiratory Respiratory exam: Present: normal lung sounds bilaterally. Absent: respiratory distress - Cardiovascular Cardiovascular Exam: Present: regular rate, normal rhythm. Absent: systolic murmur, diastolic murmur, rubs, gallop - GI/Abdominal GI/Abdominal exam: Present: soft, normal bowel sounds. Absent: distended, tenderness - Extremities Exam Extremities exam: Present: normal inspection - Back Exam Back exam: Present: normal inspection - Neurological Exam Neurological exam: Present: alert, oriented X3, CN II-XII intact. Absent: motor sensory deficit - Psychiatric Psychiatric exam: Present: normal affect, normal mood - Skin Skin exam: Present: warm, dry, intact, normal color. Absent: rash ED Course Vital Signs 01/16/20 20:25 Pulse Rate 56 L Respiratory 18 Rate Blood Pressure 106/53 O2 Sat by Pulse 99 Oximetry ED Medical Decision Making - Lab Data Result diagrams: 01/16/20 20:45 01/16/20 20:45 Lab Results 01/16/20 01/16/20 01/16/20 Range/Units 20:45 20:45 20:45 WBC 7.2 (4.5-11.0) K/mm3 RBC 3.25 L (3.65-5.03) M/mm3 Hgb 9.6 L (10.1-14.3) gm/dl Hct 29.7 L (30.3-42.9) % MCV 91 (79-97) fl MCH 30 (28-32) pg MCHC 32 (30-34) % RDW 16.1 H (13.2-15.2) % Plt Count 145 (140-440) K/mm3 Lymph % (Auto) 12.9 L (13.4-35.0) % [place] % (Auto) 6.6 (0.0-7.3) % Eos % (Auto) 5.7 H (0.0-4.3) % Baso % (Auto) 0.8 (0.0-1.8) % Lymph # (Auto) 0.9 L (1.2-5.4) K/mm3 [place] # (Auto) 0.5 (0.0-0.8) K/mm3 Eos # (Auto) 0.4 (0.0-0.4) K/mm3 Baso # (Auto) 0.1 (0.0-0.1) K/mm3 Seg Neutrophils % 74.0 H (40.0-70.0) % Seg Neutrophils # 5.3 (1.8-7.7) K/mm3 Sodium 132 L (137-145) mmol/L Potassium 6.4 H* (3.6-5.0) mmol/L Chloride 88.7 L (98-107) mmol/L Carbon Dioxide 23 (22-30) mmol/L Anion Gap 27 mmol/L BUN 76 H (7-17) mg/dL Creatinine 12.6 H (0.6-1.2) mg/dL Estimated GFR 4 ml/min BUN/Creatinine Ratio 6 % Glucose 544 H* (65-100) mg/dL Calcium 8.5 (8.4-10.2) mg/dL Total Bilirubin 0.90 (0.1-1.2) mg/dL AST 20 (5-40) units/L ALT 18 (7-56) units/L Alkaline Phosphatase 251 H (35-129) units/L Total Protein 7.0 (6.3-8.2) g/dL Albumin 3.3 L (3.9-5) g/dL Albumin/Globulin Ratio 0.9 % HCG, Qual Negative (Negative) - EKG Data -: EKG Interpreted by [place] EKG shows normal: sinus rhythm Rate: bradycardia - Radiology Data Radiology results: report reviewed - Medical Decision Making Discussed results with patient IV potassium, IV calcium gluconate, IV sodium bicarb, IV insulin, Kayexalate given Discussed patient with Dr. Dozier and patient will be dialyzed in the morning Critical Care Time: Yes Critical care time in (mins) excluding proc time.: 35 Critical care attestation.: If time is entered above; I have spent that time in minutes in the direct care of this critically ill patient, excluding procedure time. ED Disposition Clinical Impression: Hyperkalemia, ESRD (end stage renal disease) on dialysis Disposition: OP ADMIT IP TO THIS HOSP Is pt being admited?: Yes Does the pt Need Aspirin: No Condition: Fair Referrals: PRIMARY CARE, [Primary Care Provider] - 3-5 Days
[2020-01-17] MEDS ORDERED: HYDROmorphone 1 MG/1 ML INJ ONE (04:30)
[2020-01-17] MEDS: HYDROmorphone 1 MG/1 ML INJ IV PRN ×2 (04:55→09:04)
[2020-01-17] MEDS ORDERED: ACETAMINOPHEN 500 MG TAB PO PRN (05:26)
[2020-01-17] MEDS ORDERED: ACETAMINOPHEN 325 MG TAB PO PRN ×2 (07:44→07:49)
[2020-01-17] MEDS ORDERED: ONDANSETRON 4 MG/2 ML INJ IV PRN ×2 (07:49→08:00)
--- NOTE | 2020-01-17 07:58 | History and Physical Report ---
History of Present Illness Date of examination: 01/17/20 Date of admission: 01/17/20 00:43 Chief complaint: Shortness of breath for 1 day Missed hemodialysis for 1 week History of present illness: 34-year-old female with end-stage renal disease, hypertension, insulin-dependent diabetes and noncompliance comes in for increasing shortness of breath for the last 1 to 2 days. Patient had last dialysis and last week Tuesday. Patient missed 2 dialysis sessions on and Tuesday. And Tuesday. Shortness of breath on minimal exertion. Orthopnea present. No PND attacks. No chest pain. No fever or chills. No exposure to coronavirus. - Past Medical History Hx Hypertension: Yes (2014) Hx Heart Attack/AMI: Yes (father) Hx Congestive Heart Failure: Yes (father) Hx Diabetes: Yes Hx Renal Disease: Yes (T T & S) Additional medical history: Denies chronic liver disease. Pericariditis - Surgical History Hx Coronary Stent: No Hx Open Heart Surgery: No Hx Pacemaker: No Hx Internal Defibrillator: No Additional Surgical History: fistula L arm, paracentesis - Social History Smoking Status: Current Every Day Smoker Substance Use Type: None Family history Htn - Medications Home Medications: Home Medications Medication Instructions Recorded Confirmed Last Taken Type Insulin Glargine [Lantus VIAL] 3 units SUB-Q QAM 07/25/19 01/10/20 01/09/20 History 3 units Insulin Glargine [Lantus VIAL] 6 units SUB-Q HS 07/25/19 01/10/20 01/09/20 History 6 units NIFEdipine [Nifedipine ER] 30 mg PO BID 07/25/19 01/10/20 01/10/20 07:00 History carvediloL [Coreg] 25 mg PO BID 07/25/19 01/10/20 01/10/20 07:00 History Calcium Acetate [Phoslo] 2,001 mg PO TID 07/26/19 01/10/20 01/09/20 History 2001 mg Lispro Insulin [HumaLOG] 2 unit SQ QAC 07/26/19 01/10/20 01/09/20 History 2 units Review of Systems ROS: Stated complaint: GENERAL WEAKNESS/HYPERGLYCEMIA Other details as noted in HPI Comment: All other systems reviewed and negative Constitutional: denies: chills, fever Eyes: denies: eye pain, eye discharge, vision change ENT: denies: ear pain, throat pain Respiratory: denies: cough, shortness of breath, wheezing Cardiovascular: denies: chest pain, palpitations Endocrine: no symptoms reported Gastrointestinal: denies: abdominal pain, nausea, diarrhea Genitourinary: denies: urgency, dysuria, discharge Musculoskeletal: denies: back pain, joint swelling, arthralgia Skin: denies: rash, lesions Neurological: denies: headache, weakness, paresthesias Psychiatric: denies: anxiety, depression Hematological/Lymphatic: denies: easy bleeding, easy bruising Medications and Allergies Allergies Allergy/AdvReac Type Severity Reaction Status Date / Time No Known Allergies Allergy Verified 07/31/19 11:39 Home Medications Medication Instructions Recorded Confirmed Last Taken Type Insulin Glargine [Lantus VIAL] 3 units SUB-Q QAM 07/25/19 01/10/20 01/09/20 History 3 units Insulin Glargine [Lantus VIAL] 6 units SUB-Q HS 07/25/19 01/10/20 01/09/20 History 6 units NIFEdipine [Nifedipine ER] 30 mg PO BID 07/25/19 01/10/20 01/10/20 07:00 History carvediloL [Coreg] 25 mg PO BID 07/25/19 01/10/20 01/10/20 07:00 History Calcium Acetate [Phoslo] 2,001 mg PO TID 07/26/19 01/10/20 01/09/20 History 2001 mg Lispro Insulin [HumaLOG] 2 unit SQ QAC 07/26/19 01/10/20 01/09/20 History 2 units Active Meds: Active Medications Acetaminophen (Tylenol) 650 mg PO Q4H PRN PRN Reason: Pain, Mild (1-3) Acetaminophen (Tylenol) 650 mg PO Q4H PRN PRN Reason: Pain MILD(1-3)/Fever >100.5/MALIK Acetaminophen (Tylenol) 650 mg PO Q4H PRN PRN Reason: Pain MILD(1-3)/Fever >100.5/MALIK Calcium Acetate (Phoslo) 2,001 mg PO TID [facility] Carvedilol (Coreg) 25 mg PO BID [facility] Famotidine (Pepcid) 10 mg PO BID [facility] Heparin Sodium (Porcine) (Heparin) 5,000 unit SUB-Q Q12HR [facility] Hydromorphone HCl (Dilaudid) 0.5 mg IV Q3H PRN PRN Reason: Pain , Severe (7-10) Last Admin: 01/17/20 04:55 Dose: 0.5 mg Documented by: Sodium Chloride (Nacl 0.9%) 100 mls @ 999 mls/hr IV AUDREY PRN PRN Reason: Hypotension Calcium Gluconate 2,000 mg/ (Sodium Chloride) 120 mls @ 660 mls/hr IV ONCE ONE Stop: 01/17/20 07:57 Insulin Glargine (Lantus) 3 units SUB-Q QAM [facility] Insulin Glargine (Lantus) 6 units SUB-Q HS [facility] Insulin Human Lispro (Humalog) 0 unit SUB-Q ACHS [facility]; Protocol Miscellaneous Medication (Lispro Insulin) 2 unit SQ QAC [facility] Miscellaneous Medication (Nifedipine [Nifedipine Er]) 30 mg PO BID [facility] Ondansetron HCl (Zofran) 4 mg IV Q8H PRN PRN Reason: Nausea And Vomiting Ondansetron HCl (Zofran) 4 mg IV Q8H PRN PRN Reason: Nausea And Vomiting Oxycodone/Acetaminophen (Percocet 5/325) 1 tab PO Q6H PRN PRN Reason: Pain, Moderate (4-6) Sodium Chloride (Sodium Chloride Flush Syringe 10 Ml) 10 ml IV BID [facility] Sodium Chloride (Sodium Chloride Flush Syringe 10 Ml) 10 ml IV PRN PRN PRN Reason: LINE FLUSH Sodium Chloride (Sodium Chloride Flush Syringe 10 Ml) 10 ml IV BID [facility] Sodium Chloride (Sodium Chloride Flush Syringe 10 Ml) 10 ml IV PRN PRN PRN Reason: LINE FLUSH Exam - Constitutional Vitals: Temp Pulse Resp BP Pulse Ox 98.5 F 70 23 171/85 98 01/17/20 03:47 01/17/20 05:00 01/17/20 05:00 01/17/20 05:00 01/17/20 05:00 General appearance: Present: mild distress, well-nourished - EENT Eyes: Present: PERRL ENT: hearing intact, clear oral mucosa - Neck Neck: Present: supple, normal ROM - Respiratory Respiratory effort: normal Respiratory: bilateral: CTA - Cardiovascular Heart rate: 98 Rhythm: regular Heart Sounds: Present: S1 & S2. Absent: rub, click - Extremities Extremities: no ischemia, pulses symmetrical, No edema Peripheral Pulses: within normal limits - Abdominal General gastrointestinal: Present: soft, non-tender, non-distended, normal bowel sounds Female genitourinary: Present: normal - Integumentary Integumentary: Present: clear, warm, dry - Musculoskeletal Musculoskeletal: gait normal, strength equal bilaterally - Psychiatric Psychiatric: appropriate mood/affect, intact judgment & insight - Neurologic Neurologic: CNII-XII intact, moves all extremities - Allied Health Allied health notes reviewed: nursing, case management HEART Score - HEART Score History: Slightly suspicious EKG: Non-specific Age: < 45 Risk factors: > 3 risk factors or hx of atherosclerotic disease - Critical Actions Critical Actions: 0-3 pts:0.9-1.7%risk of adverse cardiac event.Candidate for discharge Results - Labs CBC & Chem 7: 01/16/20 20:45 01/16/20 20:45 Labs: Laboratory Last Values WBC 7.2 K/mm3 (4.5-11.0) 01/16/20 20:45 RBC 3.25 M/mm3 (3.65-5.03) L 01/16/20 20:45 Hgb 9.6 gm/dl (10.1-14.3) L 01/16/20 20:45 Hct 29.7 % (30.3-42.9) L 01/16/20 20:45 MCV 91 fl (79-97) 01/16/20 20:45 MCH 30 pg (28-32) 01/16/20 20:45 MCHC 32 % (30-34) 01/16/20 20:45 RDW 16.1 % (13.2-15.2) H 01/16/20 20:45 Plt Count 145 K/mm3 (140-440) 01/16/20 20:45 Lymph % (Auto) 12.9 % (13.4-35.0) L 01/16/20 20:45 [place] % (Auto) 6.6 % (0.0-7.3) 01/16/20 20:45 Eos % (Auto) 5.7 % (0.0-4.3) H 01/16/20 20:45 Baso % (Auto) 0.8 % (0.0-1.8) 01/16/20 20:45 Lymph # (Auto) 0.9 K/mm3 (1.2-5.4) L 01/16/20 20:45 [place] # (Auto) 0.5 K/mm3 (0.0-0.8) 01/16/20 20:45 Eos # (Auto) 0.4 K/mm3 (0.0-0.4) 01/16/20 20:45 Baso # (Auto) 0.1 K/mm3 (0.0-0.1) 01/16/20 20:45 Seg Neutrophils % 74.0 % (40.0-70.0) H 01/16/20 20:45 Seg Neutrophils # 5.3 K/mm3 (1.8-7.7) 01/16/20 20:45 Sodium 132 mmol/L (137-145) L 01/16/20 20:45 Potassium 6.4 mmol/L (3.6-5.0) H* 01/16/20 20:45 Chloride 88.7 mmol/L (98-107) L 01/16/20 20:45 Carbon Dioxide 23 mmol/L (22-30) 01/16/20 20:45 Anion Gap 27 mmol/L 01/16/20 20:45 BUN 76 mg/dL (7-17) H 01/16/20 20:45 Creatinine 12.6 mg/dL (0.6-1.2) H 01/16/20 20:45 Estimated GFR 4 ml/min 01/16/20 20:45 BUN/Creatinine Ratio 6 % 01/16/20 20:45 Glucose 544 mg/dL (65-100) H* 01/16/20 20:45 Calcium 8.5 mg/dL (8.4-10.2) 01/16/20 20:45 Total Bilirubin 0.90 mg/dL (0.1-1.2) 01/16/20 20:45 AST 20 units/L (5-40) 01/16/20 20:45 ALT 18 units/L (7-56) 01/16/20 20:45 Alkaline Phosphatase 251 units/L (35-129) H 01/16/20 20:45 Total Protein 7.0 g/dL (6.3-8.2) 01/16/20 20:45 Albumin 3.3 g/dL (3.9-5) L 01/16/20 20:45 Albumin/Globulin Ratio 0.9 % 01/16/20 20:45 HCG, Qual Negative (Negative) 01/16/20 20:45 Short CBC 01/16/20 Range/Units 20:45 WBC 7.2 (4.5-11.0) K/mm3 Hgb 9.6 L (10.1-14.3) gm/dl Hct 29.7 L (30.3-42.9) % Plt Count 145 (140-440) K/mm3 BMP 01/16/20 20:45 Sodium 132 L Potassium 6.4 H* Chloride 88.7 L Carbon Dioxide 23 BUN 76 H Creatinine 12.6 H Glucose 544 H* Calcium 8.5 Liver Function 01/16/20 Range/Units 20:45 Total Bilirubin 0.90 (0.1-1.2) mg/dL AST 20 (5-40) units/L ALT 18 (7-56) units/L Alkaline Phosphatase 251 H (35-129) units/L Albumin 3.3 L (3.9-5) g/dL - Imaging and Cardiology EKG: report reviewed Chest x-ray: report reviewed Lozano/IV: IV Catheter Type [Right Peripheral IV Antecubital] IV Catheter Type [Left Upper Peripheral IV arm] Assessment and Plan Advance Directives: Yes (Full code) VTE prophylaxis?: Chemical Plan of care discussed with patient/family: Yes - Patient Problems (1) Volume overload Current Visit: No Status: Acute Plan to address problem: Increase ultrafiltration to remove volume (2) Hyperkalemia Current Visit: Yes Status: Acute Plan to address problem: Anti-hyperkalemia cocktail given (3) Insulin dependent diabetes mellitus Current Visit: No Status: Chronic Plan to address problem: Insulin dosage increased (4) ESRD (end stage renal disease) on dialysis Current Visit: Yes Status: Chronic Plan to address problem: Nephrology consulted Counseled about noncompliance (5) Noncompliance of patient with renal dialysis Current Visit: No Status: Chronic Plan to address problem: Patient counseled (6) Hypertension Current Visit: No Status: Chronic Qualifiers: Hypertension type: essential hypertension Qualified Code(s): I10 - Essential (primary) hypertension Plan to address problem: Continue antihypertensives (7) DVT prophylaxis Current Visit: No Status: Acute Plan to address problem: Heparin 5000 subcu every 12 and GI prophylaxis
[2020-01-17] MEDS ORDERED: CALCIUM ACETATE 667 MG CAP PO SCH (08:00)
[2020-01-17] MEDS ORDERED: SODIUM CHLORIDE 0.9% 100 ML IV PRN (08:00)
[2020-01-17] MEDS ORDERED: CALCIUM GLUCONATE 2,000 MG in SODIUM CHLORIDE 0.9% 100 ML IV ONE (08:30)
[2020-01-17] MEDS: HEPARIN 5,000 UNIT/1 ML VIAL SUB-Q SCH ×3 (09:04→21:14)
[2020-01-17] MEDS: FAMOTIDINE 10 MG TAB PO SCH ×3 (09:05→21:07)
[2020-01-17] MEDS: carvediloL 25 MG TAB PO SCH ×2 (09:05→21:07)
[2020-01-17] MEDS: NIFEdipine XL 30 MG TAB PO SCH ×2 (09:06→21:08)
[2020-01-17] MEDS: INSULIN LISPRO 100 UNIT/ML VIAL 3 mL SUB-Q SCH ×6 (09:11→23:29)
[2020-01-17 09:21] LABS: Hepatitis B Surface Antigen Non-Reactive (Negative); Hepatitis C Virus Antibody Non-Reactive (NonReactive)
--- NOTE | 2020-01-17 09:47 | Consultation ---
History of Present Illness - Reason for Consult Consult date: 01/17/20 end stage renal disease, hyperkalemia - History of Present Illness The patient is a 34 YO female who is known to our service with history significant for Obesity, DM, HTN, ESRD on HD(was on MWF schedule), Anemia, Ascites, Tabacco smoking and medical non-compliance who presented to [facility] ED 01/15 in need of hemodialysis. Pt missed the past 3 sessions of hemodialysis due to Transportation issues. She denies any new complaints at this time. In the ED she was noted have potassium of 6.4. Patient was admitted for further management. Nephrology consulted for ESRD management. Past History Past Medical History: other (See HPI.) Medications and Allergies Allergies Allergy/AdvReac Type Severity Reaction Status Date / Time No Known Allergies Allergy Verified 07/31/19 11:39 Home Medications Medication Instructions Recorded Confirmed Last Taken Type Insulin Glargine [Lantus VIAL] 3 units SUB-Q QA 07/25/19 01/17/20 01/09/20 History 3 units Insulin Glargine [Lantus VIAL] 6 units SUB-Q 07/25/19 01/17/20 01/09/20 History 6 units NIFEdipine [Nifedipine ER] 30 mg PO BID 07/25/19 01/10/20 01/10/20 07:00 History carvediloL [Coreg] 25 mg PO BID 07/25/19 01/10/20 01/10/20 07:00 History Calcium Acetate [Phoslo] 2,001 mg PO TID 07/26/19 01/10/20 01/09/20 History 2001 mg Lispro Insulin [HumaLOG] 2 unit SQ [facility] 07/26/19 01/10/20 01/09/20 History 2 units Active Meds: Active Medications Acetaminophen (Tylenol) 650 mg PO Q4H PRN PRN Reason: Pain, Mild (1-3) Calcium Acetate (Phoslo) 2,001 mg PO TID [facility] Last Admin: 01/17/20 09:03 Dose: 2,001 mg Documented by: Carvedilol (Coreg) 25 mg PO BID [facility] Last Admin: 01/17/20 09:05 Dose: 25 mg Documented by: Famotidine (Pepcid) 10 mg PO BID [facility] Last Admin: 01/17/20 09:05 Dose: 10 mg Documented by: Heparin Sodium (Porcine) (Heparin) 5,000 unit SUB-Q Q12HR [facility] Last Admin: 01/17/20 09:04 Dose: 5,000 unit Documented by: Hydromorphone HCl (Dilaudid) 0.5 mg IV Q3H PRN PRN Reason: Pain , Severe (7-10) Last Admin: 01/17/20 09:04 Dose: 0.5 mg Documented by: Sodium Chloride (Nacl 0.9%) 100 mls @ 999 mls/hr IV AUDREY PRN PRN Reason: Hypotension Insulin Glargine (Lantus) 15 units SUB-Q QAM [facility] Last Admin: 01/17/20 09:02 Dose: 15 units Documented by: Insulin Glargine (Lantus) 15 units SUB-Q HS [facility] Insulin Human Lispro (Humalog) 0 unit SUB-Q ACHS [facility]; Protocol Insulin Human Lispro (Humalog) 2 unit SUB-Q QAC [facility] Last Admin: 01/17/20 09:11 Dose: 2 unit Documented by: Nifedipine (Procardia Xl) 30 mg PO BID [facility] Last Admin: 01/17/20 09:06 Dose: 30 mg Documented by: Ondansetron HCl (Zofran) 4 mg IV Q8H PRN PRN Reason: Nausea And Vomiting Oxycodone/Acetaminophen (Percocet 5/325) 1 tab PO Q6H PRN PRN Reason: Pain, Moderate (4-6) Sodium Chloride (Sodium Chloride Flush Syringe 10 Ml) 10 ml IV BID [facility] Last Admin: 01/17/20 09:06 Dose: 10 ml Documented by: Sodium Chloride (Sodium Chloride Flush Syringe 10 Ml) 10 ml IV PRN PRN PRN Reason: LINE FLUSH Review of Systems Constitutional: no weight loss, no weight gain, no fever, no chills, no anorexia, no fatigue, no weakness, no poor appetite Breasts: deferred Cardiovascular: edema, high blood pressure, leg edema, no chest pain, no orthopnea, no syncope, no lightheadedness, no shortness of breath Respiratory: no cough, no hemoptysis, no shortness of breath, no dyspnea on exertion Gastrointestinal: no abdominal pain, no nausea, no vomiting, no diarrhea, no melena Musculoskeletal: no muscle weakness, no muscle cramps Integumentary: no rash Neurological: no seizures, no syncope, no convulsions, no aphasia, no change in speech, no change in mentation, no confusion Exam - Vital Signs Vital signs: Vital Signs Pulse Resp BP Pulse Ox 56 L 18 106/53 99 01/16/20 20:25 01/16/20 20:25 01/16/20 20:25 01/16/20 20:25 Results - Lab Results 01/16/20 20:45 01/16/20 20:45 Most recent lab results Calcium 8.5 mg/dL (8.4-10.2) 01/16/20 20:45 Assessment and Plan 1. ESRD: Patient was on maintenance hemodialysis three times a week. Last outpatient HD 01/08/20. Hemodialysis: 10/16. 2. FEN: Volume overload, UF with HD as tolerated. Hyperkalemia, HD today, monitor. Monitor lytes. 3. Anemia, POA: Likely secondary to ESRD. Epogen as needed. 4. Hypertension: Continue home meds. UF with HD as tolerated. Monitor BP. 5. Ascites: Likely Cirrhosis. Advised multiple times to see GI / hepatology but hasn't seen yet. Intermittent therapeutic paracentesis. 6. Uncontrolled DM: ADA diet. Monitor blood sugar. 7. Medical non-compliance: Counseled. Objective: - Exam: General appearance: well-developed, well-nourished, appears stated age, no distress HEENT: ATNC, PERRL, hearing intact, vision intact, facial plethora noted Neck: neck supple, trachea midline Respiratory: bibasal rales noted Heart: regular, S1S2, no murmur Gastrointestinal: normoactive bowel sounds, distended, ascites noted, not tender Integumentary: no rash, warm and dry Neurologic: no focal deficit, no asterixis, AOX4 Ext: 1+ LE edema noted Hemodialysis access: L arm AVF
[2020-01-17] MEDS ORDERED: NON-FORMULARY EACH (Nifedipine [Nifedipine Er] 30 MG) PO SCH (10:00)
[2020-01-17] MEDS ORDERED: INSULIN GLARGINE 100 UNITS/ML SUB-Q SCH ×4 (10:00→22:00)
[2020-01-17] MEDS ORDERED: LISPRO INSULIN SQ SCH (11:30)
[2020-01-17] MEDS ORDERED: INSULIN REGULAR, HUMAN 100 UNITS/1 ML ONE (12:34)
[2020-01-17] MEDS: oxyCODONE /ACETAMINOPHEN 5-325MG TAB PO PRN ×2 (14:56→21:08)
--- NOTE | 2020-01-17 15:14 | Progress Note ---
Assessment and Plan Assessment and plan: --Volume overload Current Visit: No Status: Acute Plan to address problem: Received hemodialysis today HD per schedule, nephrology following -- Hyperkalemia Current Visit: Yes Status: Acute Plan to address problem: Anti-hyperkalemia cocktail given Hemodialysis, monitor electrolytes -- Insulin dependent diabetes mellitus Current Visit: No Status: Chronic Plan to address problem: Accu-Chek sliding scale coverage ADA diet Long-acting insulin However patient is refusing medications -- ESRD (end stage renal disease) on dialysis Current Visit: Yes Status: Chronic Plan to address problem: Nephrology consulted/HD per schedule Counseled about noncompliance -- Noncompliance of patient with renal dialysis Current Visit: No Status: Chronic Plan to address problem: Patient counseled and explained the importance of adhering to the treatment plan Verbalized understanding, but patient was very angry and frustrated -- Hypertensive urgency Current Visit: No Status: Chronic Plan to address problem: Patient is on carvedilol and nifedipine Blood pressures in 200s systolic Add hydralazine 50 mg 3 times a day, And PRN IV labetalol 10 mg every 4 hours for blood pressure more than 155/90 -- DVT prophylaxis Current Visit: No Status: Acute Plan to address problem: Heparin 5000 subcu every 12 and GI prophylaxis Advance care 35 minutes History Interval history: I have seen and examined the patient in her room after she returned from dialysis Patient complains of generalized body pains, not feeling well Uncontrolled blood pressures, peak systolic blood pressure more than 200 Patient is noncompliant refusing medications Vital signs noted Hospitalist Physical - Constitutional Vitals: Temp Pulse Resp BP Pulse Ox 98.2 F 82 18 197/102 97 01/17/20 10:35 01/17/20 13:45 01/17/20 10:35 01/17/20 13:45 01/17/20 10:00 General appearance: Present: mild distress, well-nourished, obese - EENT Eyes: Present: PERRL, EOM intact - Neck Neck: Present: supple, normal ROM - Respiratory Respiratory effort: normal Respiratory: bilateral: diminished, rales, negative: rhonchi, wheezing - Cardiovascular Rhythm: regular Heart Sounds: Present: S1 & S2 - Extremities Extremities: no ischemia, No edema - Abdominal General gastrointestinal: soft, non-tender, non-distended, normal bowel sounds - Integumentary Integumentary: Present: clear, warm - Psychiatric Psychiatric: appropriate mood/affect, cooperative - Neurologic Neurologic: moves all extremities HEART Score - HEART Score EKG: Non-specific Age: < 45 Risk factors: > 3 risk factors or hx of atherosclerotic disease - Critical Actions Critical Actions: 0-3 pts:0.9-1.7%risk of adverse cardiac event.Candidate for discharge Results - Labs CBC & Chem 7: 01/16/20 20:45 01/16/20 20:45 Labs: Laboratory Last Values WBC 7.2 K/mm3 (4.5-11.0) 01/16/20 20:45 RBC 3.25 M/mm3 (3.65-5.03) L 01/16/20 20:45 Hgb 9.6 gm/dl (10.1-14.3) L 01/16/20 20:45 Hct 29.7 % (30.3-42.9) L 01/16/20 20:45 MCV 91 fl (79-97) 01/16/20 20:45 MCH 30 pg (28-32) 01/16/20 20:45 MCHC 32 % (30-34) 01/16/20 20:45 RDW 16.1 % (13.2-15.2) H 01/16/20 20:45 Plt Count 145 K/mm3 (140-440) 01/16/20 20:45 Lymph % (Auto) 12.9 % (13.4-35.0) L 01/16/20 20:45 [place] % (Auto) 6.6 % (0.0-7.3) 01/16/20 20:45 Eos % (Auto) 5.7 % (0.0-4.3) H 01/16/20 20:45 Baso % (Auto) 0.8 % (0.0-1.8) 01/16/20 20:45 Lymph # (Auto) 0.9 K/mm3 (1.2-5.4) L 01/16/20 20:45 [place] # (Auto) 0.5 K/mm3 (0.0-0.8) 01/16/20 20:45 Eos # (Auto) 0.4 K/mm3 (0.0-0.4) 01/16/20 20:45 Baso # (Auto) 0.1 K/mm3 (0.0-0.1) 01/16/20 20:45 Seg Neutrophils % 74.0 % (40.0-70.0) H 01/16/20 20:45 Seg Neutrophils # 5.3 K/mm3 (1.8-7.7) 01/16/20 20:45 Sodium 132 mmol/L (137-145) L 01/16/20 20:45 Potassium 6.4 mmol/L (3.6-5.0) H* 01/16/20 20:45 Chloride 88.7 mmol/L (98-107) L 01/16/20 20:45 Carbon Dioxide 23 mmol/L (22-30) 01/16/20 20:45 Anion Gap 27 mmol/L 01/16/20 20:45 BUN 76 mg/dL (7-17) H 01/16/20 20:45 Creatinine 12.6 mg/dL (0.6-1.2) H 01/16/20 20:45 Estimated GFR 4 ml/min 01/16/20 20:45 BUN/Creatinine Ratio 6 % 01/16/20 20:45 Glucose 544 mg/dL (65-100) H* 01/16/20 20:45 POC Glucose 305 (70-105) H 01/17/20 09:18 Hemoglobin A1c 8.1 % (4-6) H 01/17/20 08:23 Calcium 8.5 mg/dL (8.4-10.2) 01/16/20 20:45 Total Bilirubin 0.90 mg/dL (0.1-1.2) 01/16/20 20:45 AST 20 units/L (5-40) 01/16/20 20:45 ALT 18 units/L (7-56) 01/16/20 20:45 Alkaline Phosphatase 251 units/L (35-129) H 01/16/20 20:45 Total Protein 7.0 g/dL (6.3-8.2) 01/16/20 20:45 Albumin 3.3 g/dL (3.9-5) L 01/16/20 20:45 Albumin/Globulin Ratio 0.9 % 01/16/20 20:45 HCG, Qual Negative (Negative) 01/16/20 20:45 Hepatitis A IgM Ab Non-reactive (NonReactive) 01/17/20 08:28 Hep Bs Antigen Non-reactive (Negative) 01/17/20 08:28 Hep B Core IgM Ab Non-reactive (NonReactive) 01/17/20 08:28 Hepatitis C Antibody Non-reactive (NonReactive) 01/17/20 08:28 Lozano/IV: IV Catheter Type [Right Peripheral IV Antecubital] IV Catheter Type [Left Upper Peripheral IV arm] Active Medications - Current Medications Current Medications: Generic Name Dose Route Start Last Admin Trade Name Freq PRN Reason Stop Dose Admin Acetaminophen 650 mg 01/17/20 06:00 Tylenol PO Q4H PRN Pain, Mild (1-3) Calcium Acetate 2,001 mg 01/17/20 13:02 Phoslo PO TIDWM [facility] Carvedilol 25 mg 01/17/20 10:00 01/17/20 09:05 Coreg PO 25 mg BID [facility] Administration Famotidine 10 mg 01/17/20 10:00 01/17/20 10:24 Pepcid PO Not Given BID [facility] Heparin Sodium (Porcine) 5,000 unit 01/17/20 10:00 01/17/20 10:24 Heparin SUB-Q Not Given Q12HR [facility] Hydralazine HCl 50 mg 01/17/20 22:00 Apresoline PO Q8HR [facility] Sodium Chloride 100 mls @ 999 mls/hr 01/17/20 08:00 Nacl 0.9% IV AUDREY PRN Hypotension Insulin Glargine 15 units 01/17/20 10:00 01/17/20 09:02 Lantus SUB-Q 15 units QAM [facility] Administration Insulin Glargine 15 units 01/17/20 22:00 Lantus SUB-Q HS [facility] Insulin Human Lispro 0 unit 01/17/20 11:30 Humalog SUB-Q ACHS [facility] Protocol Insulin Human Lispro 2 unit 01/17/20 08:30 01/17/20 09:11 Humalog SUB-Q 2 unit QAC [facility] Administration Labetalol HCl 20 mg 01/17/20 15:12 Labetalol IV 01/17/20 15:13 ONCE ONE Labetalol HCl 10 mg 01/17/20 15:12 Labetalol IV Q4H PRN Hypertension Nifedipine 30 mg 01/17/20 10:00 01/17/20 09:06 Procardia Xl PO 30 mg BID [facility] Administration Ondansetron HCl 4 mg 01/17/20 08:00 Zofran IV Q8H PRN Nausea And Vomiting Oxycodone/Acetaminophen 1 tab 01/17/20 08:00 01/17/20 14:56 Percocet 5/325 PO 1 tab Q6H PRN Administration Pain, Moderate (4-6) Sodium Chloride 10 ml 01/17/20 10:00 01/17/20 09:06 Sodium Chloride Flush Syringe 10 Ml IV 10 ml BID [facility] Administration Sodium Chloride 10 ml 01/17/20 08:00 Sodium Chloride Flush Syringe 10 Ml IV PRN PRN LINE FLUSH
[2020-01-17] MEDS: CALCIUM ACETATE 667 MG CAP PO SCH ×2 (15:25→17:19)
[2020-01-17] MEDS: ACETAMINOPHEN 325 MG TAB PO PRN (17:20)
[2020-01-17] MEDS: hydrALAZINE 25 MG TAB PO SCH (21:08)
[2020-01-18] MEDS ORDERED: TEMAZEPAM 15 MG CAP PO PRN ×2 (00:31→01:33)
[2020-01-18] MEDS: oxyCODONE /ACETAMINOPHEN 5-325MG TAB PO PRN ×3 (03:03→21:18)
[2020-01-18] MEDS ORDERED: cloNIDine 0.2 MG TAB PO STA (03:11)
[2020-01-18 06:44] LABS: Basophils % (Auto) 0.4 % (0.0-1.8); Eosinophils # (Auto) 0.2 K/mm3 (0.0-0.4); Eosinophils % (Auto) 3.6 % (0.0-4.3); Hemoglobin 9.8 gm/dl (10.1-14.3); Lymphocytes # (Auto) 0.9 K/mm3 (1.2-5.4); Lymphocytes % (Auto) 15.9 % (13.4-35.0); Mean Corpuscular HGB Conc 33 % (30-34); Mean Corpuscular Volume 90 fl (79-97); Monocytes # (Auto) 0.3 K/mm3 (0.0-0.8); Monocytes % (Auto) 5.8 % (0.0-7.3); Platelet Count 111 K/mm3 (140-440); Red Blood Count 3.34 M/mm3 (3.65-5.03); Red Cell Distribution Width 16.5 % (13.2-15.2)
[2020-01-18] MEDS: hydrALAZINE 25 MG TAB PO SCH ×3 (06:58→21:23)
[2020-01-18] MEDS: INSULIN LISPRO 100 UNIT/ML VIAL 3 mL SUB-Q SCH ×5 (08:25→23:52)
[2020-01-18] MEDS: CALCIUM ACETATE 667 MG CAP PO SCH ×3 (08:37→18:09)
[2020-01-18 08:44] LABS: Albumin 2.9 g/dL (3.9-5); Calcium 8.9 mg/dL (8.4-10.2)
--- NOTE | 2020-01-18 09:44 | Progress Note ---
Assessment and Plan Assessment and plan: --Right dental infection; Current Visit: Yes Status: Acute Plan to address problem: amoxicillin 500 every 8 hours and ibuprofen 600 every 6 hours as needed --Severe hyperkalemia Current Visit: Yes Status: Acute Plan to address problem: Calcium gluconate, Kayexalate Closely monitor potassium levels Hemodialysis, nephrology following --Volume overload; present on admission Current Visit: No Status: Acute Plan to address problem: On hemodialysis per schedule Nephrology following Oxygen , titrate O2 sats to more than 90% -- ESRD (end stage renal disease) on dialysis Current Visit: Yes Status: Chronic Plan to address problem: Nephrology following, hemodialysis per schedule --Hypoglycemia; IV D50 as needed, adjust insulin dose Encourage oral intake -- Insulin dependent diabetes mellitus Current Visit: No Status: Chronic Plan to address problem: With hypoglycemia episode Decrease Lantus dose to 5 units twice a day Accu-Chek sliding scale coverage ADA diet --Medical noncompliance hemodialysis Current Visit: No Status: Chronic Plan to address problem: Patient strongly advised importance of adhering to the treatment plan Advised to comply with medications diet follow-up visits Especially hemodialysis , patient verbalized understanding -- Hypertensive urgency Current Visit: No Status: Chronic Plan to address problem: Patient is on carvedilol and nifedipine Blood pressures in 200s systolic Add hydralazine 50 mg 3 times a day, And PRN IV labetalol 10 mg every 4 hours for blood pressure more than 155/90. --severe malnutrition/hypo albuminemia Current Visit: No Status: Chronic Plan to address problem: Nutrition supplements and supportive care Nutrition consult -- DVT prophylaxis Current Visit: No Status: Acute Plan to address problem: Heparin 5000 subcu every 12 and GI prophylaxis Closely monitor the patient and adjust the management as needed History Interval history: I have seen and examined the patient at the bedside Patient's chart and medications reviewed Patient has hyperkalemia Patient feels slightly better No new complaints Vital signs noted Hospitalist Physical - Constitutional Vitals: Temp Pulse Resp BP Pulse Ox 98.4 F 90 20 170/88 98 01/18/20 05:44 01/18/20 06:58 01/18/20 05:44 01/18/20 06:58 01/18/20 00:27 General appearance: Present: no acute distress, well-nourished, obese - EENT Eyes: Present: PERRL, EOM intact - Neck Neck: Present: supple, normal ROM - Respiratory Respiratory effort: normal Respiratory: bilateral: diminished, negative: rales, rhonchi, wheezing - Cardiovascular Rhythm: regular Heart Sounds: Present: S1 & S2 - Extremities Extremities: no ischemia, No edema - Abdominal General gastrointestinal: soft, non-tender, non-distended, normal bowel sounds - Integumentary Integumentary: Present: clear, warm - Psychiatric Psychiatric: appropriate mood/affect, cooperative - Neurologic Neurologic: moves all extremities HEART Score - HEART Score EKG: Non-specific Age: < 45 Risk factors: > 3 risk factors or hx of atherosclerotic disease - Critical Actions Critical Actions: 0-3 pts:0.9-1.7%risk of adverse cardiac event.Candidate for discharge Results - Labs CBC & Chem 7: 01/18/20 05:46 01/18/20 05:46 Labs: Laboratory Last Values WBC 5.7 K/mm3 (4.5-11.0) 01/18/20 05:46 RBC 3.34 M/mm3 (3.65-5.03) L 01/18/20 05:46 Hgb 9.8 gm/dl (10.1-14.3) L 01/18/20 05:46 Hct 30.0 % (30.3-42.9) L 01/18/20 05:46 MCV 90 fl (79-97) 01/18/20 05:46 MCH 29 pg (28-32) 01/18/20 05:46 MCHC 33 % (30-34) 01/18/20 05:46 RDW 16.5 % (13.2-15.2) H 01/18/20 05:46 Plt Count 111 K/mm3 (140-440) L 01/18/20 05:46 Lymph % (Auto) 15.9 % (13.4-35.0) 01/18/20 05:46 [place] % (Auto) 5.8 % (0.0-7.3) 01/18/20 05:46 Eos % (Auto) 3.6 % (0.0-4.3) 01/18/20 05:46 Baso % (Auto) 0.4 % (0.0-1.8) 01/18/20 05:46 Lymph # (Auto) 0.9 K/mm3 (1.2-5.4) L 01/18/20 05:46 [place] # (Auto) 0.3 K/mm3 (0.0-0.8) 01/18/20 05:46 Eos # (Auto) 0.2 K/mm3 (0.0-0.4) 01/18/20 05:46 Baso # (Auto) 0.0 K/mm3 (0.0-0.1) 01/18/20 05:46 Seg Neutrophils % 74.3 % (40.0-70.0) H 01/18/20 05:46 Seg Neutrophils # 4.2 K/mm3 (1.8-7.7) 01/18/20 05:46 Sodium 137 mmol/L (137-145) 01/18/20 05:46 Potassium 6.6 mmol/L (3.6-5.0) H* 01/18/20 05:46 Chloride 93.8 mmol/L (98-107) L 01/18/20 05:46 Carbon Dioxide 25 mmol/L (22-30) 01/18/20 05:46 Anion Gap 25 mmol/L 01/18/20 05:46 BUN 40 mg/dL (7-17) H 01/18/20 05:46 Creatinine 8.5 mg/dL (0.6-1.2) H 01/18/20 05:46 Estimated GFR 7 ml/min 01/18/20 05:46 BUN/Creatinine Ratio 5 % 01/18/20 05:46 Glucose 103 mg/dL (65-100) H 01/18/20 05:46 POC Glucose 95 (70-105) 01/17/20 21:54 Hemoglobin A1c 8.1 % (4-6) H 01/17/20 08:23 Calcium 8.9 mg/dL (8.4-10.2) 01/18/20 05:46 Total Bilirubin 0.80 mg/dL (0.1-1.2) 01/18/20 05:46 AST 20 units/L (5-40) 01/18/20 05:46 ALT 15 units/L (7-56) 01/18/20 05:46 Alkaline Phosphatase 200 units/L (35-129) H 01/18/20 05:46 Total Protein 6.2 g/dL (6.3-8.2) L 01/18/20 05:46 Albumin 2.9 g/dL (3.9-5) L 01/18/20 05:46 Albumin/Globulin Ratio 0.9 % 01/18/20 05:46 HCG, Qual Negative (Negative) 01/16/20 20:45 Hepatitis A IgM Ab Non-reactive (NonReactive) 01/17/20 08:28 Hep Bs Antigen Non-reactive (Negative) 01/17/20 08:28 Hep B Core IgM Ab Non-reactive (NonReactive) 01/17/20 08:28 Hepatitis C Antibody Non-reactive (NonReactive) 01/17/20 08:28 Lozano/IV: IV Catheter Type [Right INT / Saline Lock Forearm] IV Catheter Type [Right Peripheral IV Antecubital] IV Catheter Type [Left Upper Peripheral IV arm] Active Medications - Current Medications Current Medications: Generic Name Dose Route Start Last Admin Trade Name Freq PRN Reason Stop Dose Admin Acetaminophen 650 mg 01/17/20 06:00 01/17/20 17:20 Tylenol PO 650 mg Q4H PRN Administration Pain, Mild (1-3) Calcium Acetate 2,001 mg 01/17/20 13:02 01/17/20 17:19 Phoslo PO 2,001 mg TIDWM RHEA Administration Carvedilol 25 mg 01/17/20 10:00 01/17/20 21:07 Coreg PO 25 mg BID RHEA Administration Famotidine 10 mg 01/17/20 10:00 01/17/20 21:07 Pepcid PO 10 mg BID RHEA Administration Heparin Sodium (Porcine) 5,000 unit 01/17/20 10:00 01/17/20 21:14 Heparin SUB-Q Not Given Q12HR [facility] Hydralazine HCl 50 mg 01/17/20 22:00 01/18/20 06:58 Apresoline PO 50 mg Q8HR RHEA Administration Sodium Chloride 100 mls @ 999 mls/hr 01/17/20 08:00 Nacl 0.9% IV AUDREY PRN Hypotension Calcium Gluconate 2,000 mg/ 120 mls @ 660 mls/hr 01/18/20 09:45 Sodium Chloride IV 01/18/20 09:55 ONCE ONE Insulin Glargine 15 units 01/17/20 10:00 01/17/20 09:02 Lantus SUB-Q 15 units QAM RHEA Administration Insulin Glargine 15 units 01/17/20 22:00 01/17/20 23:30 Lantus SUB-Q Not Given HS [facility] Insulin Human Lispro 0 unit 01/17/20 11:30 01/17/20 23:29 Humalog SUB-Q Not Given ACHS [facility] Protocol Insulin Human Lispro 2 unit 01/17/20 08:30 01/17/20 19:04 Humalog SUB-Q Not Given QAC [facility] Labetalol HCl 10 mg 01/17/20 15:12 01/18/20 03:19 Labetalol IV 10 mg Q4H PRN Administration Hypertension Nifedipine 30 mg 01/17/20 10:00 01/17/20 21:08 Procardia Xl PO 30 mg BID RHEA Administration Ondansetron HCl 4 mg 01/17/20 08:00 01/17/20 16:00 Zofran IV 4 mg Q8H PRN Administration Nausea And Vomiting Oxycodone/Acetaminophen 1 tab 01/17/20 08:00 01/18/20 03:03 Percocet 5/325 PO 1 tab Q6H PRN Administration Pain, Moderate (4-6) Sodium Chloride 10 ml 01/17/20 10:00 01/17/20 23:33 Sodium Chloride Flush Syringe 10 Ml IV Not Given BID [facility] Sodium Chloride 10 ml 01/17/20 08:00 01/18/20 03:24 Sodium Chloride Flush Syringe 10 Ml IV 10 ml PRN PRN Administration LINE FLUSH Sodium Polystyrene Sulfonate 30 gm 01/18/20 09:45 Kionex PO 01/18/20 09:46 ONCE ONE Temazepam 15 mg 01/18/20 01:33 Restoril PO QHS PRN Sleep
[2020-01-18] MEDS ORDERED: SODIUM POLYSTYRENE 15 GM/60 ML ORAL LIQD PO ONE (09:45)
[2020-01-18] MEDS ORDERED: CALCIUM GLUCONATE 2,000 MG in SODIUM CHLORIDE 0.9% 100 ML IV ONE (09:45)
[2020-01-18] MEDS: HEPARIN 5,000 UNIT/1 ML VIAL SUB-Q SCH ×2 (09:58→23:35)
[2020-01-18] MEDS: carvediloL 25 MG TAB PO SCH ×2 (10:38→21:17)
[2020-01-18] MEDS: INSULIN GLARGINE 100 UNITS/ML SUB-Q SCH ×2 (10:41→23:52)
[2020-01-18] MEDS: FAMOTIDINE 10 MG TAB PO SCH ×3 (10:42→23:35)
[2020-01-18] MEDS: NIFEdipine XL 30 MG TAB PO SCH ×2 (10:42→21:18)
[2020-01-18] MEDS ORDERED: SODIUM CHLORIDE 0.9% 100 ML IV PRN (10:49)
--- NOTE | 2020-01-18 10:59 | Progress Note ---
Assessment and Plan 1. ESRD: Patient was on maintenance hemodialysis three times a week. Last outpatient HD 01/08/20. Hemodialysis: 01/16, 01/17. 2. FEN: Volume overload, UF with HD as tolerated. Hyperkalemia, HD today, monitor. Monitor lytes. 3. Anemia, POA: Likely secondary to ESRD. Epogen as needed. 4. Hypertension: Continue home meds. UF with HD as tolerated. Monitor BP. 5. Ascites: Likely Cirrhosis. Advised multiple times to see GI / hepatology but hasn't seen yet. Intermittent therapeutic paracentesis. 6. Uncontrolled DM: ADA diet. Monitor blood sugar. 7. Medical non-compliance: Counseled. Subjective: Patient was seen and examined at the bedside. Doing ok. Examination: General appearance: well-developed, well-nourished, appears stated age, no distress HEENT: ATNC, PERRL, hearing intact, vision intact, facial plethora noted Neck: neck supple, trachea midline Respiratory: bibasal rales noted Heart: regular, S1S2, no murmur Gastrointestinal: normoactive bowel sounds, distended, ascites noted, not tender Integumentary: no rash, warm and dry Neurologic: no focal deficit, no asterixis, AOX4 Ext: trace LE edema noted Hemodialysis access: L arm AVF Subjective Date of service: 01/18/20 Objective - Vital Signs Vital signs: Vital Signs - 12hr 01/18/20 01/18/20 01/18/20 00:27 00:41 03:03 Temperature 98.2 F Pulse Rate 78 78 Respiratory 20 20 Rate Blood Pressure 227/117 227/117 O2 Sat by Pulse 98 Oximetry 01/18/20 01/18/20 01/18/20 03:19 05:44 06:58 Temperature 98.4 F Pulse Rate 80 90 Respiratory 20 Rate Blood Pressure 216/108 170/88 170/88 O2 Sat by Pulse Oximetry - Lab 01/18/20 05:46 01/19/20 04:55 Most recent lab results Calcium 8.9 mg/dL (8.4-10.2) 01/18/20 05:46 Medications & Allergies - Medications Allergies/Adverse Reactions: Allergies No Known Allergies Allergy (Verified 07/31/19 11:39) Home Medications: Home Medications Medication Instructions Recorded Confirmed Last Taken Type Insulin Glargine [Lantus VIAL] 3 units SUB-Q QAM 07/25/19 01/17/20 01/09/20 History 3 units Insulin Glargine [Lantus VIAL] 6 units SUB-Q HS 07/25/19 01/17/20 01/09/20 History 6 units NIFEdipine [Nifedipine ER] 30 mg PO BID 07/25/19 01/10/20 01/10/20 07:00 History carvediloL [Coreg] 25 mg PO BID 07/25/19 01/10/20 01/10/20 07:00 History Calcium Acetate [Phoslo] 2,001 mg PO TID 07/26/19 01/10/20 01/09/20 History 2001 mg Lispro Insulin [HumaLOG] 2 unit SQ QA 07/26/19 01/10/20 01/09/20 History 2 units Active Medications: Generic Name Dose Route Start Last Admin Trade Name Freq PRN Reason Stop Dose Admin Acetaminophen 650 mg 01/17/20 06:00 01/17/20 17:20 Tylenol PO 650 mg Q4H PRN Administration Pain, Mild (1-3) Calcium Acetate 2,001 mg 01/17/20 13:02 01/17/20 17:19 Phoslo PO 2,001 mg TIDWM RHEA Administration Carvedilol 25 mg 01/17/20 10:00 01/17/20 21:07 Coreg PO 25 mg BID RHEA Administration Famotidine 10 mg 01/17/20 10:00 01/17/20 21:07 Pepcid PO 10 mg BID RHEA Administration Heparin Sodium (Porcine) 5,000 unit 01/17/20 10:00 01/18/20 09:58 Heparin SUB-Q Not Given Q12HR REPLACED BY [facility] Hydralazine HCl 50 mg 01/17/20 22:00 01/18/20 06:58 Apresoline PO 50 mg Q8HR RHEA Administration Sodium Chloride 100 mls @ 999 mls/hr 01/17/20 08:00 Nacl 0.9% IV AUDREY PRN Hypotension Sodium Chloride 100 mls @ 999 mls/hr 01/18/20 10:49 Nacl 0.9% IV AUDREY PRN Hypotension Insulin Glargine 5 units 01/18/20 10:00 Lantus SUB-Q BID REPLACED BY [facility] Insulin Human Lispro 0 unit 01/17/20 11:30 01/17/20 23:29 Humalog SUB-Q Not Given ACHS RHEA Protocol Labetalol HCl 10 mg 01/17/20 15:12 01/18/20 03:19 Labetalol IV 10 mg Q4H PRN Administration Hypertension Nifedipine 30 mg 01/17/20 10:00 01/17/20 21:08 Procardia Xl PO 30 mg BID RHEA Administration Ondansetron HCl 4 mg 01/17/20 08:00 01/17/20 16:00 Zofran IV 4 mg Q8H PRN Administration Nausea And Vomiting Oxycodone/Acetaminophen 1 tab 01/17/20 08:00 01/18/20 03:03 Percocet 5/325 PO 1 tab Q6H PRN Administration Pain, Moderate (4-6) Sodium Chloride 10 ml 01/17/20 10:00 01/17/20 23:33 Sodium Chloride Flush Syringe 10 Ml IV Not Given BID RHEA Sodium Chloride 10 ml 01/17/20 08:00 01/18/20 03:24 Sodium Chloride Flush Syringe 10 Ml IV 10 ml PRN PRN Administration LINE FLUSH Temazepam 15 mg 01/18/20 01:33 Restoril PO QHS PRN Sleep
[2020-01-18] MEDS ORDERED: IBUPROFEN 400 MG TAB PO PRN (15:01)
[2020-01-18] MEDS: AMOXICILLIN 500 MG CAP PO SCH ×2 (18:10→21:19)
[2020-01-18] MEDS: ACETAMINOPHEN 325 MG TAB PO PRN (18:16)
[2020-01-19 06:21] LABS: Calcium 8.9 mg/dL (8.4-10.2)
[2020-01-19] MEDS: hydrALAZINE 25 MG TAB PO SCH ×2 (06:43→13:41)
[2020-01-19] MEDS: oxyCODONE /ACETAMINOPHEN 5-325MG TAB PO PRN ×2 (06:43→14:58)
[2020-01-19] MEDS: AMOXICILLIN 500 MG CAP PO SCH (06:43)
[2020-01-19] MEDS: CALCIUM ACETATE 667 MG CAP PO SCH ×3 (08:07→17:39)
[2020-01-19] MEDS ORDERED: SODIUM CHLORIDE 0.9% 100 ML IV PRN (08:25)
[2020-01-19] MEDS: INSULIN LISPRO 100 UNIT/ML VIAL 3 mL SUB-Q SCH ×3 (09:06→16:48)
--- NOTE | 2020-01-19 11:47 | Progress Note ---
Assessment and Plan 1. ESRD: Patient was on maintenance hemodialysis three times a week. Last outpatient HD 01/08/20. Hemodialysis: 01/16, 01/17, 01/18. 2. FEN: Volume overload, UF with HD as tolerated. Hyperkalemia, improved with HD, monitor. Monitor lytes. 3. Anemia, POA: Likely secondary to ESRD. Epogen as needed. 4. Hypertension: Continue home meds. UF with HD as tolerated. Monitor BP. 5. Ascites: Likely Cirrhosis. Advised multiple times to see GI / [employer] [facility], but hasn't seen yet. Intermittent therapeutic paracentesis. 6. Uncontrolled DM: ADA diet. Monitor blood sugar. 7. Medical non-compliance: Counseled. Subjective: Patient was seen and examined at the bedside. Doing ok. Examination: General appearance: well-developed, well-nourished, appears stated age, no distress HEENT: ATNC, PERRL, hearing intact, vision intact Neck: neck supple, trachea midline Respiratory: bibasal rales noted Heart: regular, S1S2, no murmur Gastrointestinal: normoactive bowel sounds, distended, ascites noted, not tender Integumentary: no rash, warm and dry Neurologic: no focal deficit, no asterixis, AOX4 Ext: no edema noted Hemodialysis access: L arm AVF Subjective Date of service: 01/19/20 Objective - Vital Signs Vital signs: Vital Signs - 12hr 01/19/20 01/19/20 01/19/20 04:28 06:43 09:30 Temperature 99.0 F 98.2 F Pulse Rate 71 71 70 Respiratory 18 20 18 Rate Blood Pressure 123/66 123/66 130/70 O2 Sat by Pulse 92 Oximetry 01/19/20 01/19/20 01/19/20 09:40 09:45 10:00 Temperature Pulse Rate 70 71 68 Respiratory Rate Blood Pressure 121/61 126/61 119/58 O2 Sat by Pulse Oximetry 01/19/20 01/19/20 01/19/20 10:15 10:30 10:45 Temperature Pulse Rate 67 68 67 Respiratory Rate Blood Pressure 120/58 123/58 126/59 O2 Sat by Pulse Oximetry 01/19/20 11:00 Temperature Pulse Rate 67 Respiratory Rate Blood Pressure 129/67 O2 Sat by Pulse Oximetry - Lab 01/18/20 05:46 01/19/20 04:55 Most recent lab results Calcium 8.9 mg/dL (8.4-10.2) 01/19/20 04:55 Medications & Allergies - Medications Allergies/Adverse Reactions: Allergies No Known Allergies Allergy (Verified 07/31/19 11:39) Home Medications: Home Medications Medication Instructions Recorded Confirmed Last Taken Type Insulin Glargine [Lantus VIAL] 3 units SUB-Q QAM 07/25/19 01/17/20 01/09/20 History 3 units Insulin Glargine [Lantus VIAL] 6 units SUB-Q HS 07/25/19 01/17/20 01/09/20 History 6 units NIFEdipine [Nifedipine ER] 30 mg PO BID 07/25/19 01/10/20 01/10/20 07:00 History carvediloL [Coreg] 25 mg PO BID 07/25/19 01/10/20 01/10/20 07:00 History Calcium Acetate [Phoslo] 2,001 mg PO TID 07/26/19 01/10/20 01/09/20 History 2001 mg Lispro Insulin [HumaLOG] 2 unit SQ [facility] 07/26/19 01/10/20 01/09/20 History 2 units Active Medications: Generic Name Dose Route Start Last Admin Trade Name Freq PRN Reason Stop Dose Admin Acetaminophen 650 mg 01/17/20 06:00 01/18/20 18:16 Tylenol PO 650 mg Q4H PRN Administration Pain, Mild (1-3) Amoxicillin 500 mg 01/20/20 10:00 Trimox PO Q24HR [facility] Calcium Acetate 2,001 mg 01/17/20 13:02 01/19/20 08:07 Phoslo PO 2,001 mg TIDWM RHEA Administration Carvedilol 25 mg 01/17/20 10:00 01/18/20 21:17 Coreg PO 25 mg BID RHEA Administration Famotidine 10 mg 01/17/20 10:00 01/18/20 23:35 Pepcid PO Not Given BID [facility] Heparin Sodium (Porcine) 5,000 unit 01/17/20 10:00 01/18/20 23:35 Heparin SUB-Q Not Given Q12HR [facility] Hydralazine HCl 50 mg 01/17/20 22:00 01/19/20 06:43 Apresoline PO 50 mg Q8HR RHEA Administration Sodium Chloride 100 mls @ 999 mls/hr 01/19/20 08:25 Nacl 0.9% IV AUDREY PRN Hypotension Ibuprofen 400 mg 01/18/20 15:01 01/18/20 23:33 Ibuprofen PO 400 mg Q6H PRN Administration Pain, Mild (1-3) Insulin Glargine 5 units 01/18/20 10:00 01/18/20 23:52 Lantus SUB-Q Not Given BID [facility] Insulin Human Lispro 0 unit 01/17/20 11:30 01/19/20 09:06 Humalog SUB-Q 6 unit ACHS RHEA Administration Protocol Labetalol HCl 10 mg 01/17/20 15:12 01/18/20 03:19 Labetalol IV 10 mg Q4H PRN Administration Hypertension Nifedipine 30 mg 01/17/20 10:00 01/18/20 21:18 Procardia Xl PO 30 mg BID RHEA Administration Ondansetron HCl 4 mg 01/17/20 08:00 01/17/20 16:00 Zofran IV 4 mg Q8H PRN Administration Nausea And Vomiting Oxycodone/Acetaminophen 1 tab 01/17/20 08:00 01/19/20 06:43 Percocet 5/325 PO 1 tab Q6H PRN Administration Pain, Moderate (4-6) Sodium Chloride 10 ml 01/17/20 10:00 01/18/20 21:19 Sodium Chloride Flush Syringe 10 Ml IV 10 ml BID RHEA Administration Sodium Chloride 10 ml 01/17/20 08:00 01/18/20 03:24 Sodium Chloride Flush Syringe 10 Ml IV 10 ml PRN PRN Administration LINE FLUSH Temazepam 15 mg 01/18/20 01:33 01/18/20 23:33 Restoril PO 15 mg QHS PRN Administration Sleep
[2020-01-19] MEDS: carvediloL 25 MG TAB PO SCH (13:37)
[2020-01-19] MEDS: HEPARIN 5,000 UNIT/1 ML VIAL SUB-Q SCH (13:38)
[2020-01-19] MEDS: INSULIN GLARGINE 100 UNITS/ML SUB-Q SCH (13:38)
[2020-01-19] MEDS: NIFEdipine XL 30 MG TAB PO SCH (13:40)
[2020-01-19] MEDS: FAMOTIDINE 10 MG TAB PO SCH (13:41)
--- NOTE | 2020-01-19 13:54 | Discharge Summary ---
Providers - Providers Date of Admission: 01/17/20 00:43 Date of discharge: 01/19/20 Attending physician: MERCEDES SEYMOUR 01/17/20 00:11 Consult to Physician [CONS] Routine Comment: Consulting Provider: UBALDO COLLAZO Physician Instructions: Reason For Exam: hyperkalemia/esrd/dialysis Primary care physician: [employer] [employer] Hospitalization Reason for admission: Shortness of breath/fluid over load /Missed HD Condition: Fair Procedures: HD per schedule Hospital course: 34-year-old female with en-stage renal disease, hypertension, insulin-dependent diabetes and noncompliance with hemodiaysis was admitted through ER with worsening shortness of breath for the last 1 to 2 days. Patient had last dialysis and last week Tuesday. Patient missed 2 dialysis sessions on and Tuesday. And Tuesday. Shortness of breath on minimal exertion. Orthopnea present. No PND attacks. No chest pain. No fever or chills. No exposure to coronavirus. Appropriately managed,evaluated by nephrology,received HD per schedule.Patient's symptoms improved. Today patient feels better,no new complaints,vital signs stable,Physical exam is unremarkable..Stable at discharge. Discharge Diagnosis: --Volume overload; present on admission Current Visit: No Status: Acute On hemodialysis per schedule -- ESRD (end stage renal disease) on dialysis Current Visit: Yes Status: Chronic Nephrology following, hemodialysis per schedule --Right dental infection; Current Visit: Yes Status: Acute amoxicillin 500 every 8 hours and ibuprofen 600 every 6 hours as needed --Severe hyperkalemia Current Visit: Yes Status: Acute Calcium gluconate, Kayexalate, Resolved --Hypoglycemia; IV D50 as needed, adjust insulin dose Encourage oral intake -- Insulin dependent diabetes mellitus Current Visit: No Status: Chronic With hypoglycemia episode Decrease Lantus dose to 5 units twice a day Accu-Chek sliding scale coverage ADA diet --Medical noncompliance hemodialysis Current Visit: No Status: Chronic Plan to address problem: Patient strongly advised importance of adhering to the treatment plan Advised to comply with medications diet follow-up visits Especially hemodialysis , patient verbalized understanding -- Hypertensive urgency/improved Current Visit: No Status: Chronic continue current management --severe malnutrition/hypo albuminemia Current Visit: No Status: Chronic Plan to address problem: Nutrition supplements and supportive care -- DVT prophylaxis Current Visit: No Status: Acute Plan to address problem: Heparin 5000 subcu every 12 and GI prophylaxis Patient stable at discharge. Disposition: DC-01 TO HOME OR SELFCARE Time spent for discharge: 32 min Core Measure Documentation - Palliative Care Palliative Care/ Comfort Measures: Not Applicable - Core Measures Any of the following diagnoses?: none Exam - Constitutional Vitals: Temp Pulse Resp BP Pulse Ox 98.5 F 95 H 18 128/59 95 01/19/20 13:33 01/19/20 13:41 01/19/20 13:33 01/19/20 13:41 01/19/20 13:34 General appearance: Present: no acute distress, well-nourished - EENT Eyes: Present: PERRL, EOM intact - Neck Neck: Present: supple, normal ROM - Respiratory Respiratory effort: normal Respiratory: bilateral: diminished, negative: rales, rhonchi, wheezing - Cardiovascular Rhythm: regular Heart Sounds: Present: S1 & S2 - Extremities Extremities: no ischemia, No edema - Abdominal General gastrointestinal: Present: soft, non-tender, non-distended, normal bowel sounds - Integumentary Integumentary: Present: clear, warm - Musculoskeletal Musculoskeletal: strength equal bilaterally - Psychiatric Psychiatric: appropriate mood/affect, cooperative - Neurologic Neurologic: moves all extremities Plan Activity: no restrictions Diet: diabetic, renal Additional Instructions: Follow nephrology/hemodialysis per schedule. If you have worsening symptoms contact MD or go to emergency room. Strongly advised to comply with medications, diet, follow-up visits, hemodialysis Follow up with: PRIMARY CARE, [Primary Care Provider] - 3-5 Days UBALDO COLLAZO MD [Staff Physician] - 7 Days Prescriptions: Ibuprofen [Motrin 400 MG tab] 400 mg PO Q6H PRN #20 tablet PRN Reason: Pain, Mild (1-3) Calcium Acetate [Phoslo] 2,001 mg PO TID #90 cap Amoxicillin [Trimox CAP] 500 mg PO Q24HR #10 capsule
[2020-01-19 16:57] VITALS: BP 150/69
[2020-01-20] MEDS ORDERED: AMOXICILLIN 500 MG CAP PO SCH (10:00)
== END 2020-01-19 17:59 | disposition home or self-care (01) ==
LOC: ED 19:56 → 4A 01-17 00:43
PROVIDERS: ADMIT Internal Medicine; ATTEND Internal Medicine
DX: E87.70 Fluid overload, unspecified (principal); E87.5 Hyperkalemia; I13.2 Hypertensive heart and chronic kidney disease with heart failure and with stage 5 chronic kidney disease, or end stage renal disease; I50.9 Heart failure, unspecified; N18.6 End stage renal disease; E11.22 Type 2 diabetes mellitus with diabetic chronic kidney disease; E11.649 Type 2 diabetes mellitus with hypoglycemia without coma; F17.200 Nicotine dependence, unspecified, uncomplicated; D64.9 Anemia, unspecified; R18.8 Other ascites; D63.1 Anemia in chronic kidney disease; K04.7 Periapical abscess without sinus; Z99.2 Dependence on renal dialysis; Z91.15 Patient's noncompliance with renal dialysis; Z79.4 Long term (current) use of insulin; Z98.890 Other specified postprocedural states; Z79.899 Other long term (current) drug therapy
CPT/HCPCS: 36415; 80048; 80053; 80074; 82962; 83036; 84703; 85025; 93005; 96374; 96375; 96376; 99291; G0257; G0378; J0610; J1170; J2405; 96361; J1644; J1815

== ENCOUNTER 2020-01-24 08:54 | Outpatient (CLI) | payer MEDICARE ==
[2020-01-24 11:28] VITALS: BP 108/57
[2020-01-24] MEDS ORDERED: ALBUMIN HUMAN 25% (25 GM/100 ML) INJ IV PRN (11:59)
--- NOTE | 2020-01-24 11:59 | Short Stay Summary ---
Short Stay Documentation Date of service: 01/24/20 Narrative H&P: renal disease with ascites - History Principal diagnosis: ascites Past Medical History: renal failure - Allergies and Medications Current Medications: Allergies No Known Allergies Allergy (Verified 07/31/19 11:39) Home Medications Medication Instructions Recorded Confirmed Last Taken Type Insulin Glargine [Lantus VIAL] 3 units SUB-Q QAM 07/25/19 01/24/20 01/09/20 History 3 units Insulin Glargine [Lantus VIAL] 6 units SUB-Q HS 07/25/19 01/17/20 01/09/20 History 6 units NIFEdipine [Nifedipine ER] 30 mg PO BID 07/25/19 01/24/20 01/23/20 History carvediloL [Coreg] 25 mg PO BID 07/25/19 01/24/20 01/23/20 History Lispro Insulin [HumaLOG] 2 unit SQ QAC 07/26/19 01/10/20 01/09/20 History 2 units Amoxicillin [Trimox CAP] 500 mg PO Q24HR #10 capsule 01/19/20 Unknown Rx Calcium Acetate [Phoslo] 2,001 mg PO TID #90 cap 01/19/20 01/24/20 01/24/20 Rx Ibuprofen [Motrin 400 MG tab] 400 mg PO Q6H PRN #20 tablet 01/19/20 Unknown Rx - Physical exam General appearance: no acute distress Gastrointestinal: distended - Brief post op/procedure progress note Date of procedure: 01/24/20 Pre-op diagnosis: ascites Post-op diagnosis: same Procedure: US paracentesis Anesthesia: local Findings: moderate ascites Surgeon: DAVID CROUCH Estimated blood loss: none Pathology: none Specimen disposition: discarded Condition: stable - Hospital course Hospital course: uneventful - Disposition Condition at discharge: Good Disposition: DC-01 TO HOME OR SELFCARE Short Stay Discharge Plan Follow up with: PRIMARY CARE, [Primary Care Provider] - 7 Days
--- NOTE | 2020-01-24 12:04 | Ultrasound Report ---
ULTRASOUND-GUIDED PARACENTESIS HISTORY: ascites. PROCEDURE: The risks (including but not limited to bleeding, infection, and bowel injury) and benefi ts were explained to the patient and informed consent was obtained. A time out procedure was perform ed. Ultrasound was used to evaluate the abdomen and locate the largest ascites fluid pocket. Once the sk in was marked, the procedure site was prepped and draped in the usual sterile fashion and lidocaine w as used for local anesthesia. A skin oleg was made and a 5 [place]oc[place] centesis catheter was placed. The patient was monitored closely throughout the procedure, and a total of 5600 mL of clear yellow fluid was aspirated. No labs were ordered. The patient tolerated the procedure well with no complications. IMPRESSION: Successful ultrasound-guided paracentesis as described. Signer Name: Garrett Carreno Jr, MD Signed: 01/24/2020 11:59 AM Workstation Name: [id number]
== END 2020-01-24 13:25 | disposition home or self-care (01) ==
LOC: CATHLABREC 08:54 → US 08:54 → CATHLABREC 13:25
PROVIDERS: ATTEND Internal Medicine Nephrology
DX: R18.8 Other ascites (principal); I13.2 Hypertensive heart and chronic kidney disease with heart failure and with stage 5 chronic kidney disease, or end stage renal disease; E11.22 Type 2 diabetes mellitus with diabetic chronic kidney disease; N18.6 End stage renal disease; I50.9 Heart failure, unspecified; E11.65 Type 2 diabetes mellitus with hyperglycemia; K21.9 Gastro-esophageal reflux disease without esophagitis; D69.6 Thrombocytopenia, unspecified; F17.210 Nicotine dependence, cigarettes, uncomplicated; Z91.15 Patient's noncompliance with renal dialysis; Z99.2 Dependence on renal dialysis; Z98.890 Other specified postprocedural states; Z98.891 History of uterine scar from previous surgery; Z82.49 Family history of ischemic heart disease and other diseases of the circulatory system
CPT/HCPCS: 49083; P9047

== ENCOUNTER 2020-02-08 09:46 | Day surgery (SDC) | payer MEDICARE ==
[2020-02-08 10:38] LABS: INR 1.33 (0.87-1.13)
[2020-02-08 10:39] LABS: Partial Thromboplastin Time 38.5 Sec. (24.2-36.6)
[2020-02-08] MEDS ORDERED: ALBUMIN HUMAN 25% (25 GM/100 ML) INJ IV PRN (12:26)
--- NOTE | 2020-02-08 12:26 | Short Stay Summary ---
Short Stay Documentation Date of service: 02/08/20 Narrative H&P: ascites - History Principal diagnosis: ascites Past Medical History: renal failure - Allergies and Medications Current Medications: Allergies No Known Allergies Allergy (Verified 07/31/19 11:39) Home Medications Medication Instructions Recorded Confirmed Last Taken Type Insulin Glargine [Lantus VIAL] 3 units SUB-Q QAM 07/25/19 01/24/20 01/09/20 History 3 units Insulin Glargine [Lantus VIAL] 6 units SUB-Q HS 07/25/19 01/17/20 01/09/20 History 6 units NIFEdipine [Nifedipine ER] 30 mg PO BID 07/25/19 01/24/20 01/23/20 History carvediloL [Coreg] 25 mg PO BID 07/25/19 01/24/20 01/23/20 History Lispro Insulin [HumaLOG] 2 unit SQ QAC 07/26/19 01/10/20 01/09/20 History 2 units Amoxicillin [Trimox CAP] 500 mg PO Q24HR #10 capsule 01/19/20 Unknown Rx Calcium Acetate [Phoslo] 2,001 mg PO TID #90 cap 01/19/20 01/24/20 01/24/20 Rx Ibuprofen [Motrin 400 MG tab] 400 mg PO Q6H PRN #20 tablet 01/19/20 Unknown Rx - Physical exam General appearance: no acute distress Gastrointestinal: distended - Brief post op/procedure progress note Date of procedure: 02/08/20 Pre-op diagnosis: ascites Post-op diagnosis: same Procedure: US paracentesis Anesthesia: local Findings: moderate ascites Surgeon: DAVID CROUCH Estimated blood loss: none Pathology: none Specimen disposition: discarded Condition: stable - Hospital course Hospital course: uneventful - Disposition Condition at discharge: Good Disposition: DC-01 TO HOME OR SELFCARE Short Stay Discharge Plan Follow up with: PRIMARY CARE, [Primary Care Provider] - 7 Days
[2020-02-08 13:31] VITALS: BP 103/55
--- NOTE | 2020-02-08 13:57 | Ultrasound Report ---
ULTRASOUND-GUIDED PARACENTESIS HISTORY: paracentesis. PROCEDURE: The risks (including but not limited to bleeding, infection, and bowel injury) and benefi ts were explained to the patient and informed consent was obtained. A time out procedure was perform ed. Ultrasound was used to evaluate the abdomen and locate the largest ascites fluid pocket. Once the sk in was marked, the procedure site was prepped and draped in the usual sterile fashion and lidocaine w as used for local anesthesia. A skin oleg was made and a 5 Filipino centesis catheter was placed. The patient was monitored closely throughout the procedure, and a total of 3600 mL of clear yellow fluid was aspirated. No labs were ordered The patient tolerated the procedure well with no complications. IMPRESSION: Successful ultrasound-guided paracentesis as described. Signer Name: Garrett Carreno Jr, MD Signed: 02/08/2020 1:53 PM Workstation Name: [id number]
== END 2020-02-08 09:47 | disposition home or self-care (01) ==
LOC: CATHLABREC 09:46
PROVIDERS: ATTEND Internal Medicine Nephrology
DX: R18.8 Other ascites (principal); I13.2 Hypertensive heart and chronic kidney disease with heart failure and with stage 5 chronic kidney disease, or end stage renal disease; I50.9 Heart failure, unspecified; E11.22 Type 2 diabetes mellitus with diabetic chronic kidney disease; N18.6 End stage renal disease; K21.9 Gastro-esophageal reflux disease without esophagitis; D69.6 Thrombocytopenia, unspecified; E11.65 Type 2 diabetes mellitus with hyperglycemia; Z79.4 Long term (current) use of insulin; Z79.899 Other long term (current) drug therapy; Z99.2 Dependence on renal dialysis; Z98.890 Other specified postprocedural states; Z82.49 Family history of ischemic heart disease and other diseases of the circulatory system
CPT/HCPCS: 36415; 49083; 85610; 85730

== ENCOUNTER 2020-02-22 08:55 | Outpatient (CLI) | payer MEDICARE ==
[2020-02-22] MEDS ORDERED: ALBUMIN HUMAN 25% (25 GM/100 ML) INJ IV PRN (10:05)
--- NOTE | 2020-02-22 10:06 | Short Stay Summary ---
Short Stay Documentation Date of service: 02/22/20 Narrative H&P: ascites - History Principal diagnosis: ascites - Allergies and Medications Current Medications: Allergies No Known Allergies Allergy (Verified 07/31/19 11:39) Home Medications Medication Instructions Recorded Confirmed Last Taken Type Insulin Glargine [Lantus VIAL] 3 units SUB-Q QAM 07/25/19 01/24/20 01/09/20 History 3 units Insulin Glargine [Lantus VIAL] 6 units SUB-Q HS 07/25/19 01/17/20 01/09/20 History 6 units NIFEdipine [Nifedipine ER] 30 mg PO BID 07/25/19 01/24/20 01/23/20 History carvediloL [Coreg] 25 mg PO BID 07/25/19 01/24/20 01/23/20 History Lispro Insulin [HumaLOG] 2 unit SQ QAC 07/26/19 01/10/20 01/09/20 History 2 units Amoxicillin [Trimox CAP] 500 mg PO Q24HR #10 capsule 01/19/20 Unknown Rx Calcium Acetate [Phoslo] 2,001 mg PO TID #90 cap 01/19/20 01/24/20 01/24/20 Rx Ibuprofen [Motrin 400 MG tab] 400 mg PO Q6H PRN #20 tablet 01/19/20 Unknown Rx - Physical exam General appearance: no acute distress Gastrointestinal: distended - Brief post op/procedure progress note Date of procedure: 02/22/20 Pre-op diagnosis: ascites Post-op diagnosis: same Procedure: US paracentesis Anesthesia: local Findings: moderate to large ascites Surgeon: DAVID CROUCH Estimated blood loss: none Pathology: none Specimen disposition: discarded Condition: stable - Hospital course Hospital course: uneventful - Disposition Condition at discharge: Good Disposition: DC-01 TO HOME OR SELFCARE Short Stay Discharge Plan Follow up with: PRIMARY CARE, [Primary Care Provider] - 7 Days
--- NOTE | 2020-02-22 10:58 | Ultrasound Report ---
ULTRASOUND-GUIDED PARACENTESIS HISTORY: Ascities. PROCEDURE: The risks (including but not limited to bleeding, infection, and bowel injury) and benefi ts were explained to the patient and informed consent was obtained. A time out procedure was perform ed. Ultrasound was used to evaluate the abdomen and locate the largest ascites fluid pocket. Once the sk in was marked, the procedure site was prepped and draped in the usual sterile fashion and lidocaine w as used for local anesthesia. A skin oleg was made and a 5 Iraqi centesis catheter was placed. The patient was monitored closely throughout the procedure, and a total of 7700 mL of clear yellow fluid was aspirated. No labs were ordered. The patient tolerated the procedure well with no complications. IMPRESSION: Successful ultrasound-guided paracentesis as described. Signer Name: Garrett Carreno Jr, MD Signed: 02/22/2020 10:54 AM Workstation Name: [id number]
[2020-02-22 11:10] VITALS: BP 121/64
== END 2020-02-22 08:56 | disposition home or self-care (01) ==
LOC: CATHLABREC 08:55
PROVIDERS: ATTEND Internal Medicine Nephrology
DX: R18.8 Other ascites (principal); I13.2 Hypertensive heart and chronic kidney disease with heart failure and with stage 5 chronic kidney disease, or end stage renal disease; E11.22 Type 2 diabetes mellitus with diabetic chronic kidney disease; I50.9 Heart failure, unspecified; N18.6 End stage renal disease; E11.65 Type 2 diabetes mellitus with hyperglycemia; D69.6 Thrombocytopenia, unspecified; K21.9 Gastro-esophageal reflux disease without esophagitis; Z79.4 Long term (current) use of insulin; Z79.899 Other long term (current) drug therapy; Z99.2 Dependence on renal dialysis; Z98.890 Other specified postprocedural states; Z82.49 Family history of ischemic heart disease and other diseases of the circulatory system
CPT/HCPCS: 49083; P9047

== ENCOUNTER 2020-03-14 08:49 | Outpatient (CLI) | payer MEDICARE ==
[2020-03-14 09:47] LABS: INR 1.41 (0.87-1.13)
[2020-03-14 09:48] LABS: Partial Thromboplastin Time 36.9 Sec. (24.2-36.6)
[2020-03-14] MEDS ORDERED: ALBUMIN HUMAN 25% (25 GM/100 ML) INJ IV PRN (10:47)
--- NOTE | 2020-03-14 10:47 | Short Stay Summary ---
Short Stay Documentation Date of service: 03/14/20 Narrative H&P: ascites, renal disease - History Principal diagnosis: ascites Past Medical History: renal failure - Allergies and Medications Current Medications: Allergies No Known Allergies Allergy (Verified 07/31/19 11:39) Home Medications Medication Instructions Recorded Confirmed Last Taken Type Insulin Glargine [Lantus VIAL] 3 units SUB-Q QAM 07/25/19 03/14/20 03/13/20 History Insulin Glargine [Lantus VIAL] 6 units SUB-Q HS 07/25/19 03/14/20 03/13/20 History NIFEdipine [Nifedipine ER] 30 mg PO BID 07/25/19 03/14/20 03/13/20 History carvediloL [Coreg] 25 mg PO BID 07/25/19 03/14/20 03/13/20 History Lispro Insulin [HumaLOG] 2 unit SQ QAC 07/26/19 03/14/20 03/13/20 History Amoxicillin [Trimox CAP] 500 mg PO Q24HR #10 capsule 01/19/20 03/14/20 03/13/20 Rx Calcium Acetate [Phoslo] 2,001 mg PO TID #90 cap 01/19/20 03/14/20 03/13/20 Rx Ibuprofen [Motrin 400 MG tab] 400 mg PO Q6H PRN #20 tablet 01/19/20 03/14/20 03/13/20 Rx - Physical exam General appearance: no acute distress Gastrointestinal: distended - Brief post op/procedure progress note Date of procedure: 03/14/20 Pre-op diagnosis: ascites Post-op diagnosis: same Procedure: US paracentesis Anesthesia: local Findings: moderate ascites Surgeon: DAVID CROUCH Estimated blood loss: none Pathology: none Specimen disposition: discarded Condition: stable - Hospital course Hospital course: uneventful - Disposition Condition at discharge: Good Disposition: DC-01 TO HOME OR SELFCARE Short Stay Discharge Plan Follow up with: PRIMARY CARE, [Primary Care Provider] - 7 Days
[2020-03-14 11:17] VITALS: BP 108/56
--- NOTE | 2020-03-14 11:37 | Ultrasound Report ---
ULTRASOUND-GUIDED PARACENTESIS HISTORY: ascites. PROCEDURE: The risks (including but not limited to bleeding, infection, and bowel injury) and benefi ts were explained to the patient and informed consent was obtained. A time out procedure was perform ed. Ultrasound was used to evaluate the abdomen and locate the largest ascites fluid pocket. Once the sk in was marked, the procedure site was prepped and draped in the usual sterile fashion and lidocaine w as used for local anesthesia. A skin oleg was made and a 5 Faroese centesis catheter was placed. The patient was monitored closely throughout the procedure, and a total of 4600 mL of clear yellow fluid was aspirated. No labs were ordered. The patient tolerated the procedure well with no complications. IMPRESSION: Successful ultrasound-guided paracentesis as described. Signer Name: Garrett Carreno Jr, MD Signed: 03/14/2020 11:33 AM Workstation Name: [id number]
== END 2020-03-14 11:35 | disposition home or self-care (01) ==
LOC: CATHLABREC 08:49
PROVIDERS: ATTEND Internal Medicine Nephrology
DX: R18.8 Other ascites (principal); F17.210 Nicotine dependence, cigarettes, uncomplicated; I13.2 Hypertensive heart and chronic kidney disease with heart failure and with stage 5 chronic kidney disease, or end stage renal disease; E11.22 Type 2 diabetes mellitus with diabetic chronic kidney disease; I50.9 Heart failure, unspecified; N18.6 End stage renal disease; E11.65 Type 2 diabetes mellitus with hyperglycemia; Z79.899 Other long term (current) drug therapy; Z79.4 Long term (current) use of insulin; Z99.2 Dependence on renal dialysis; Z98.890 Other specified postprocedural states; Z91.15 Patient's noncompliance with renal dialysis; Z82.49 Family history of ischemic heart disease and other diseases of the circulatory system
CPT/HCPCS: 36415; 49083; 85610; 85730

== ENCOUNTER 2020-03-28 10:03 | Day surgery (SDC) | payer MEDICARE ==
[2020-03-28 11:46] VITALS: BP 149/79
[2020-03-28] MEDS ORDERED: ALBUMIN HUMAN 25% (25 GM/100 ML) INJ IV PRN (12:05)
--- NOTE | 2020-03-28 12:06 | Short Stay Summary ---
Short Stay Documentation Date of service: 03/28/20 Narrative H&P: renal insufficiency/failure with ascites - History Principal diagnosis: ascites Past Medical History: renal failure - Allergies and Medications Current Medications: Allergies No Known Allergies Allergy (Verified 07/31/19 11:39) Home Medications Medication Instructions Recorded Confirmed Last Taken Type Insulin Glargine [Lantus VIAL] 3 units SUB-Q QAM 07/25/19 03/28/20 03/27/20 History 3 Insulin Glargine [Lantus VIAL] 6 units SUB-Q HS 07/25/19 03/28/20 03/27/20 History 6 NIFEdipine [Nifedipine ER] 30 mg PO BID 07/25/19 03/28/20 03/27/20 History 30 mg carvediloL [Coreg] 25 mg PO BID 07/25/19 03/28/20 03/27/20 History 25 mg Lispro Insulin [HumaLOG] 2 unit SQ QAC 07/26/19 03/28/20 03/27/20 History 2 Calcium Acetate [Phoslo] 2,001 mg PO TID #90 cap 01/19/20 03/28/20 03/27/20 Rx 2001 mg Ibuprofen [Motrin 400 MG tab] 400 mg PO Q6H PRN #20 tablet 01/19/20 03/28/20 03/27/20 Rx 400 mg - Physical exam General appearance: no acute distress Gastrointestinal: normoactive bowel sounds, distended - Brief post op/procedure progress note Date of procedure: 03/28/20 Pre-op diagnosis: ascites Post-op diagnosis: same Procedure: US paracentesis Anesthesia: local Findings: moderate ascites Surgeon: DAVID CROUCH Estimated blood loss: none Pathology: none Specimen disposition: discarded Condition: stable - Hospital course Hospital course: uneventful - Disposition Condition at discharge: Good Disposition: DC-01 TO HOME OR SELFCARE Short Stay Discharge Plan Follow up with: PRIMARY CARE, [Primary Care Provider] - 7 Days
--- NOTE | 2020-03-28 12:10 | Ultrasound Report ---
ULTRASOUND-GUIDED PARACENTESIS HISTORY: ASCITES. PROCEDURE: The risks (including but not limited to bleeding, infection, and bowel injury) and benefi ts were explained to the patient and informed consent was obtained. A time out procedure was perform ed. Ultrasound was used to evaluate the abdomen and locate the largest ascites fluid pocket. Once the sk in was marked, the procedure site was prepped and draped in the usual sterile fashion and lidocaine w as used for local anesthesia. A skin oleg was made and a 5 Guyanese centesis catheter was placed. The patient was monitored closely throughout the procedure, and a total of 4700 mL of clear yellow fluid was aspirated. No labs were ordered. The patient tolerated the procedure well with no complications. IMPRESSION: Successful ultrasound-guided paracentesis as described. Signer Name: Garrett Carreno Jr, MD Signed: 03/28/2020 12:06 PM Workstation Name: [id number]
== END 2020-03-28 12:30 | disposition home or self-care (01) ==
LOC: CATHLABREC 10:03
PROVIDERS: ATTEND Internal Medicine Nephrology
DX: R18.8 Other ascites (principal); I13.2 Hypertensive heart and chronic kidney disease with heart failure and with stage 5 chronic kidney disease, or end stage renal disease; E11.22 Type 2 diabetes mellitus with diabetic chronic kidney disease; I50.9 Heart failure, unspecified; N18.6 End stage renal disease; E11.65 Type 2 diabetes mellitus with hyperglycemia; F17.210 Nicotine dependence, cigarettes, uncomplicated; D69.6 Thrombocytopenia, unspecified; Z79.899 Other long term (current) drug therapy; Z79.4 Long term (current) use of insulin; Z99.2 Dependence on renal dialysis; Z98.890 Other specified postprocedural states; Z82.49 Family history of ischemic heart disease and other diseases of the circulatory system
CPT/HCPCS: 49083

== ENCOUNTER 2020-04-18 09:13 | Outpatient (CLI) | payer MEDICARE ==
[2020-04-18 11:01] LABS: INR 1.34 (0.87-1.13)
[2020-04-18 11:02] LABS: Partial Thromboplastin Time 38.7 Sec. (24.2-36.6)
--- NOTE | 2020-04-18 11:37 | Short Stay Summary ---
Short Stay Documentation Date of service: 04/18/20 - History Principal diagnosis: ascites Past Medical History: renal failure - Allergies and Medications Current Medications: Allergies No Known Allergies Allergy (Verified 07/31/19 11:39) Home Medications Medication Instructions Recorded Confirmed Last Taken Type Insulin Glargine [Lantus VIAL] 3 units SUB-Q QAM 07/25/19 04/18/20 04/17/20 History Insulin Glargine [Lantus VIAL] 6 units SUB-Q HS 07/25/19 04/18/20 04/17/20 History NIFEdipine [Nifedipine ER] 30 mg PO BID 07/25/19 04/18/20 04/17/20 History carvediloL [Coreg] 25 mg PO BID 07/25/19 04/18/20 04/17/20 History Lispro Insulin [HumaLOG] 2 unit SQ QAC 07/26/19 04/18/20 04/17/20 History Calcium Acetate [Phoslo] 2,001 mg PO TID #90 cap 01/19/20 04/18/20 04/17/20 Rx Ibuprofen [Motrin 400 MG tab] 400 mg PO Q6H PRN #20 tablet 01/19/20 04/18/20 04/17/20 Rx - Physical exam General appearance: no acute distress Gastrointestinal: distended - Brief post op/procedure progress note Date of procedure: 04/18/20 Pre-op diagnosis: ascites Post-op diagnosis: same Procedure: US paracentesis Anesthesia: local Findings: moderate ascites Surgeon: DAVID CROUCH Estimated blood loss: none Pathology: none Specimen disposition: discarded Condition: stable - Hospital course Hospital course: uneventful - Disposition Condition at discharge: Good Disposition: DC-01 TO HOME OR SELFCARE Short Stay Discharge Plan Follow up with: PRIMARY CARE, [Primary Care Provider] - 7 Days
[2020-04-18] MEDS ORDERED: ALBUMIN HUMAN 25% (25 GM/100 ML) INJ IV PRN (12:00)
[2020-04-18] MEDS ORDERED: HYDROcodone/ACETAMINOPHEN 5-325 MG TAB PO ONE (12:48)
--- NOTE | 2020-04-18 13:37 | Ultrasound Report ---
ULTRASOUND-GUIDED PARACENTESIS HISTORY: ascites. PROCEDURE: The risks (including but not limited to bleeding, infection, and bowel injury) and benefi ts were explained to the patient and informed consent was obtained. A time out procedure was perform ed. Ultrasound was used to evaluate the abdomen and locate the largest ascites fluid pocket. Once the sk in was marked, the procedure site was prepped and draped in the usual sterile fashion and lidocaine w as used for local anesthesia. A skin oleg was made and a 5 Wallisian centesis catheter was placed. The patient was monitored closely throughout the procedure, and a total of 5200 mL of clear yellow fluid was aspirated. No labs were ordered by the physician. The patient tolerated the procedure well with no complications. IMPRESSION: Successful ultrasound-guided paracentesis as described. Signer Name: Garrett Carreno Jr, MD Signed: 04/18/2020 1:32 PM Workstation Name: [id number]
[2020-04-18 14:07] VITALS: BP 148/80
== END 2020-04-18 14:30 | disposition home or self-care (01) ==
LOC: CATHLABREC 09:13
PROVIDERS: ATTEND Internal Medicine Nephrology
DX: R18.8 Other ascites (principal); I13.2 Hypertensive heart and chronic kidney disease with heart failure and with stage 5 chronic kidney disease, or end stage renal disease; I50.9 Heart failure, unspecified; E11.22 Type 2 diabetes mellitus with diabetic chronic kidney disease; N18.6 End stage renal disease; K21.9 Gastro-esophageal reflux disease without esophagitis; E11.65 Type 2 diabetes mellitus with hyperglycemia; F17.210 Nicotine dependence, cigarettes, uncomplicated; Z79.899 Other long term (current) drug therapy; Z79.4 Long term (current) use of insulin; Z98.890 Other specified postprocedural states; Z82.49 Family history of ischemic heart disease and other diseases of the circulatory system
CPT/HCPCS: 36415; 49083; 85610; 85730